=== PATIENT | male | born 1960 | race Two or more races ===

== ENCOUNTER → 2021-03-16 10:35 | Outpatient (BNVA) | payer OTHER, SELFPAY | PROVIDERS: PCP Internal Medicine; Visit Provider Anesthesiology ==

== ENCOUNTER 2021-04-04 06:20 | Outpatient (REF) | payer OTHER, SELFPAY | END 2021-04-04 06:21 | disposition home or self-care (01) | LOC: HO.RADIR 06:20 | PROVIDERS: Visit Provider Anesthesiology | DX: Z13.89 Encounter for screening for other disorder (principal) ==

== ENCOUNTER → 2021-05-10 10:22 | Outpatient (BNVA) | payer OTHER, SELFPAY | PROVIDERS: PCP Obstetrics & Gynecology; Visit Provider Anesthesiology ==

== ENCOUNTER 2021-06-06 05:52 | Outpatient (REF) | payer OTHER, SELFPAY ==
--- NOTE | ~2021-06-06 | FL_ITS ---
EXAMINATION: XR FLUOROSCOPY WITH IMAGES CLINICAL INFORMATION: G89.4 - Chronic pain syndrome COMPARISON: None. TECHNIQUE: Fluoroscopy performed by Dr. Twin Ward. Fluoroscopy time: 2.6 minutes DAP: 29.6 Gycm2 Images: 3 FINDINGS: Stimulator leads are seen ascending the posterior spinal canal. On frontal view, lead tips are in region of mid thoracic spine. There are mild multilevel degenerative changes with mild disc narrowing and vertebral spurring. Fusion hardware noted lower spine. FL/FL guidance in treatment room IMPRESSION: Fluoroscopy for pain management procedure.
== END 2021-06-06 05:53 | disposition home or self-care (01) ==
LOC: HO.RADIR 05:52
PROVIDERS: Visit Provider Anesthesiology
DX: G89.4 Chronic pain syndrome (principal); M96.1 Postlaminectomy syndrome, not elsewhere classified; Z97.8 Presence of other specified devices

== ENCOUNTER → 2021-06-14 07:59 | Outpatient (BNVA) | payer OTHER, SELFPAY | PROVIDERS: PCP Obstetrics & Gynecology; Visit Provider Anesthesiology ==

== ENCOUNTER 2021-08-11 07:09 | Day surgery (SDC) | payer OTHER, SELFPAY ==
--- NOTE | 2021-08-10 11:49 | P.CONAN_ITS ---
Documented by User: Jazmine Sierra NP 08/10/21 11:50 HPI - Anesthesia Eval Consult details Narrative: 61yo M for Lumbar Spinal Stimulation Implant with Removal of Intrathecal Drug Delivery System PMFSH Active Problems Active Problems: All Active Problems (Updated 08/08/21 @ 13:51 by Viviana Lancaster, RN) Presence of intrathecal pump (Acute) Chronic pain syndrome (Acute) Postlaminectomy syndrome (Acute) Past Medical History Medical History (Updated 08/08/21 @ 13:51 by Viviana Lancaster, RN) Allergic rhinitis Anemia Anxiety Bicuspid aortic valve Chronic pain syndrome Depressive disorder Hypercholesteremia Hypertensive disorder Impotence of organic origin Insomnia Irritable bowel Low back pain Lumbar radiculopathy Malignant essential hypertension On beta fareed at home NOEMY (obstructive sleep apnea) Otitis externa due to herpes zoster Postlaminectomy syndrome Premature atrial contraction Presence of intrathecal pump PVCs (premature ventricular contractions) Surgical History Surgical History (Updated 08/08/21 @ 13:51 by Viviana Lancaster RN) History of back surgery History of cystoscopy History of transurethral resection of prostate Social History Social History Patient Tobacco Use Status: Never used Tobacco Use of substances other than those prescribed or required for medical reasons: No Advance Directives: No Advance Directives Information Provided: Yes Recently lost weight without trying: No Meds Allergies Allergy/AdvReac Type Severity Reaction Status Date / Time opiods AdvReac itching, Uncoded 08/08/21 13:52 nausea Home Medications Medication Instructions Recorded Confirmed Last Taken Type dicyclomine 10 mg capsule 10 mg PO TID 03/16/21 08/08/21 Unknown History lisinopril 40 mg tablet 40 mg PO DAILY 03/16/21 08/08/21 Unknown History metoprolol succinate 200 mg 200 mg PO DAILY 03/16/21 08/08/21 Unknown History tablet,extended release 24 hr spironolactone 25 mg tablet 25 mg PO DAILY 03/16/21 08/08/21 Unknown History amlodipine 10 mg tablet 1 tab PO DAILY 08/08/21 08/08/21 Unknown History atorvastatin 80 mg tablet 80 tab PO DAILY 08/08/21 08/08/21 Unknown History cevimeline 30 mg capsule 1 cap PO TID 08/08/21 08/08/21 Unknown History fluticasone propionate 50 2 spray INTRANASAL QAM 08/08/21 08/08/21 Unknown History mcg/actuation nasal spray,suspension gabapentin 300 mg capsule 300 mg PO TID 08/08/21 08/08/21 Unknown History lorazepam 0.5 mg tablet 0.5 mg PO DAILY PRN 08/08/21 08/08/21 Unknown History tamsulosin 0.4 mg capsule 1 cap PO DAILY 08/08/21 08/08/21 Unknown History Exam Exam Date and Time: August 10, 2021 114 Assessment and Plan Assessment Anesthesia Assessment: Chart Reviewed Documented by User: Sophia Caputo MD 08/11/21 08:28 ON LICENSE OF [facility] Past Medical History Medical History (Updated 08/08/21 @ 13:51 by Viviana Lancaster RN) Allergic rhinitis Anemia Anxiety Bicuspid aortic valve Chronic pain syndrome Depressive disorder Hypercholesteremia Hypertensive disorder Impotence of organic origin Insomnia Irritable bowel Low back pain Lumbar radiculopathy Malignant essential hypertension On beta fareed at home NOEMY (obstructive sleep apnea) Otitis externa due to herpes zoster Postlaminectomy syndrome Premature atrial contraction Presence of intrathecal pump PVCs (premature ventricular contractions) Family History Family history of problems with anesthesia: No Surgical History Surgical History (Updated 08/08/21 @ 13:51 by Viviana Lancaster RN) History of back surgery History of cystoscopy History of transurethral resection of prostate History of Problems with Anesthesia: No Social History Social History Patient Tobacco Use Status: Never used Tobacco Use of substances other than those prescribed or required for medical reasons: No Advance Directives: No Advance Directives Information Provided: Yes Recently lost weight without trying: No Meds Allergies Allergy/AdvReac Type Severity Reaction Status Date / Time opiods AdvReac itching, Uncoded 08/08/21 13:52 nausea Home Medications Medication Instructions Recorded Confirmed Last Taken Type dicyclomine 10 mg capsule 10 mg PO TID 03/16/21 08/08/21 Unknown History lisinopril 40 mg tablet 40 mg PO DAILY 03/16/21 08/08/21 Unknown History metoprolol succinate 200 mg 200 mg PO DAILY 03/16/21 08/08/21 Unknown History tablet,extended release 24 hr spironolactone 25 mg tablet 25 mg PO DAILY 03/16/21 08/08/21 Unknown History amlodipine 10 mg tablet 1 tab PO DAILY 08/08/21 08/08/21 Unknown History atorvastatin 80 mg tablet 80 tab PO DAILY 08/08/21 08/08/21 Unknown History cevimeline 30 mg capsule 1 cap PO TID 08/08/21 08/08/21 Unknown History fluticasone propionate 50 2 spray INTRANASAL QAM 08/08/21 08/08/21 Unknown History mcg/actuation nasal spray,suspension gabapentin 300 mg capsule 300 mg PO TID 08/08/21 08/08/21 Unknown History lorazepam 0.5 mg tablet 0.5 mg PO DAILY PRN 08/08/21 08/08/21 Unknown History tamsulosin 0.4 mg capsule 1 cap PO DAILY 08/08/21 08/08/21 Unknown History Exam Airway Mallampati Class: II TM Dist: >3cm Neck ROM: Full Assessment and Plan Assessment Anesthesia Assessment: Anesthesia Plan Discussed Final Anesthetic Review Family History of Problems with Anesthesia: No History of Problems with Anesthesia: No NPO: Yes ASA Class: II Final Preanesthetic Review: No Changes in Pt Med Stat, Meds/Allgs Chart Reviewed, Consent Obtained/Reviewed and Anes Risks/Benef Reviewed Patient Risk: Intermediate Procedure Risk: Low Anesthetic Plan Anesthetic Plan: GA Disposition: Standard PACU
[2021-08-11] VITALS (9 sets, daily range): BP systolic 104–138; BP diastolic 65–89; PULSE 60–114; RESP 14–18; TEMP 36.3–36.6; O2SAT 96–99; BMI 27.0
--- NOTE | ~2021-08-11 | FL_ITS ---
EXAMINATION: XR FLUOROSCOPY WITH IMAGES CLINICAL INFORMATION: Lumbar spine cord simulation trial. COMPARISON: None. TECHNIQUE: Fluoroscopy performed by Dr. Twin Ward Fluoroscopy time: 6.7 minutes DAP: 43.3 mGycm2 Images: 3 FINDINGS: Lateral thoracic spine revealing insertion of 2 posterior spinal electrodes in the [id number] thoracic spine. Visualized bones and the disc spaces are maintained normal. FL/FL guidance in OR IMPRESSION: Fluoroscopy was provided to referring physician for pain management.
[2021-08-11] MEDS: Lactated Ringers 1,000 ML 100 ML IVCONT (07:42)
--- NOTE | 2021-08-11 07:44 | MHC.SHP ---
Pre-Procedural Eval Section A Date of Service: 08/11/21 The patient is an INPATIENT: No Changes since office visit: Yes Patient answered all questions The History & Physical has been completed within 30 days and I have reviewed it.: No Section B Chief Complaint: Postlaminectomy Syndrome Details of Present Illness: as above Relevant Family History (Specify if Yes): No Relevant Social History: None Present Medications: see Short Stay Collaborative assessment Medical History: No relevant PMH History of Previous Operations: Relevant previous surgery/procedure and date(s) Allergies: Allergies Allergy/AdvReac Type Severity Reaction Status Date / Time opiods AdvReac itching, Uncoded 08/08/21 13:52 nausea Review of Systems Sugical H&P ROS: Negative: Constitution, Cardiovascular, Respiratory, Neurological, Psychiatric, Hem-Onc, Allergic/Immunologic, Gastrointestinal, Genitourinary, Musculoskeletal, Integumentary, Endocrine and Eyes/Ears/Nose/Throat Exam Surgical H&P Exam: Normal: HEENT, Normal: Heart, Normal: Lungs, Normal: Extremities, Normal: Abdomen, Normal: Skin and Normal: Neurological Plan Diagnosis/Plan: Unchanged I have reviewed the history and physical and performed a pertinent physical examination on my patient. No changes have occurred unless specified.
--- NOTE | 2021-08-11 12:04 | W.PM.OPN ---
Operative Note Operative Note Date of Service: 08/11/21 Narrative: Abdiaziz is a very pleasant 61 y.o. ?who came today the operating room for the implant of Nevro spinal cord stimulator for the treatment of mostly axial lower back pain and removal of intrathecal pain pump 20 years old which was implanted in [place]. This was outdated continuous pressure intrathecal pump which was delivering bupivacaine only to the patient. After obtaining informed consent patient was brought to the operating room, he was positioned supine on the stretcher, [place] [employer] monitors were applied and patient was induced with general anesthesia with endotracheal intubation.? After that patient was transferred on the operating table prone, all pressure points were protected. ? Time-out was performed delineating correct site, side, the nature of the procedure, patient's allergy, preoperative antibiotic if needed.? All operating room staff was participating in OR time-out procedure. Patient's entire back was prepped with DuraPrep twice and draped with full body drape including Ioban film.? Sterilely draped C-arm was brought over operating field and square picture of T12, L1, L2?vertebrae? were demonstrated on the screen.? Picture of anchoring device was noted on the screen. The location of the lumbar spine fusion hardware was noted on the screen. THE PROJECTION OF? L1-L2 and L3?SPINOUS PROCESSES TO THE SKIN WERE INFILTRATED WITH LIDOCAINE 2% MIXED WITH BUPIVACAINE 0.5%.? 16 CM LONG VERTICAL INCISION using a 10 blade scalpel WAS PERFORMED IN STRICT MIDLINE VERTICAL FASHION.? THOROUGH HEMOSTASIS WAS PERFORMED using electrocautery. ?Thorough tissue dissections was performed until prevertebral fascia was freed from overlying tissues.? The anchor for intrathecal drug delivery system catheter was dissected from surrounding tissues. The catheter was attempted to fold on itself and tied up with suture. Unfortunately this of dated model of the catheter was not capable of this maneuver. I was not able to fold over and tied up with Tycron suture. The decision was made to remove the catheter. The catheter was dissected to the level of prevertebral fascia where it was entering the spinal canal. Of the pursestring suture using Tycron 1.0 was formed in the tissues surrounding the catheter entrance point into the prevertebral fascia. After that the catheter was severed from distal part and was slowly withdrawn to the level of the fascia until the tip of the catheter was delivered outside. The presumable channel of the direction of the catheter was inserted with the Bovie tip and coagulation application was applied. After that to the pursestring suture was tied up and yet another pursestring suture was applied in the area surrounding the 1st pursestring suture and tied up 1 more time. Thorough irrigation was performed of the wound. The tip of the catheter was examined it was appeared intact. Nevertheless it was cultured and sent for pathology. After that attention was concentrated on the RIGHT T12-L1 epidural interspace.? The location of the projection of the right pedicle center of the?L2?vertebra was found on the prevertebral fascia using C-arm. 10 cm 14 gauge straight introducer epidural needle was inserted through the fascia and advanced toward?T12-L1 epidural interspace.? The advancement of the needle was performed on anterior posterior and lateral views.? Guitar wire and loss of resistance technique were used to locate epidural space.?When loss of resistance was felt in the needle, guitar wire was obtained inserted into the needle and spread in epidural fashion. After that epidural lead was inserted through the needle and it was advanced to the position in the POSTERIOR EPIDURAL SPACE ? Slightly left to MIDLINE at the posterior T8 vertebral body body epidural space. After that location of the projection of the LEFT pedicle center of the L2 vertebra was found -using C-arm.? This location was injected with mixture of lidocaine 2% and Marcaine 0.5% 5 cc.? Again here 10 cm 14 gauge straight epidural needle was inserted through the prevertebral fascia and advanced to T12-L1 intervertebral interspace now on the left side.? Loss of resistance to air technique was used to locate epidural space and guitar wire was used to confirm position of the epidural space. When guitar wire was spread in the epidural fashion, epidural lead was inserted through the needle and advanced to the? T9 POSTERIOR EPIDURAL SPACE?slightly right to the existing LEAD.? THE LOCATION OF BOTH LEADS WAS VERIFIED ON ANTERIOR POSTERIOR AND LATERAL VIEWS. After satisfactory position of the leads were established the needles were withdrawn, the stylette wires were removed from the epidural leads.? The anchoring devices were dislodged on the leads and advanced to the level of the prevertebral fascia.? The anchoring devices were advanced along the epidural leads and dislodged on epidural leads at the level of prevertebral fascia.? They were sutured to prevertebral fascia with 2 separate Tycron 1-0 sutures per each anchoring device.? The fixating screws were fixed until 3 clicks were heard on each anchoring device. After that the wound was irrigated with copious amount of Vancomycin containing normal saline and packed with Vancomycin soaked 4 x 4. ?After that attention was concentrated on the right upper buttock??of the patient?where he wanted the? battery to be implanted.?Using 10 scalpel 6 cm long horizontal incision was performed 3 cm below the projection to the skin of the left iliac creest. ? The wound was deepened and widened and thorough hemostasis was performed. The pocket was created to accommodate the battery. Irrigation with vancomycin containing saline was performed.After that the? tunneling device was used to connect midline incision and the left upper buttock incision. Thorough hemostasis was performed. ?? After that tunneling device was used to connect both wounds and dislodge epidural leads from midline wound to the lateral wound in the? upper ? Left buttock..? The epidural lead's contacting ends were connected to the battery. The impedance was satisfactory. After that both wounds were thoroughly irrigated with normal saline containing vancomycin.?? Tycron 1 0 Sutures were applied to the most superior lateral and most superior medial corners of the? wound.? Those sutures were tied after the battery was inserted into the pocket with the epidural leads collected behind the body of the battery.. After that 0 Polisorb sutures were used to close both wounds.?0-2 Polisorb surures were used to approximate the level of the skin on the both wounds.? Jake were applied to skin level.? Bacitracin ointment was smeared on the staple line.? Sterile dressing was applied.? After that the patient was turned on the operating table supine and location of the intrathecal catheter was determined on the right side of the abdomen. Patient's anterior lateral and central abdomen was prepped with ChloraPrep and draped with full body drape. The pump was located again under the skin and the incision was planned along side the center of the pump. 10 cm incision using 10 blade scalpel was made in the middle of the projection of the pump. Thorough hemostasis was obtained. The capsule of the pump was opened up. Heavy calcifications were discovered in the body of the pump. Those calcifications might be evident of indolent chronic infection. Cultures were obtained. The anchoring sutures were severed and the outdated arrow intrathecal pump was removed to the level of the skin. After that dissection was performed along side the intrathecal catheter and connection device. The application of the Bovie on the outdated intrathecal catheter resulted in severance of the spring inside of the catheter. The catheter ruptured and after that was removed from the wound piece by piece. Eventually I was able to remove most of the portions of the intrathecal catheter. After that attention was concentrated on the calcified tissues in crusting the self of the pump pocket. Thorough dissection and removal of the calcified tissues was performed. Thorough irrigation was repeated numerous times. Irrigation was containing vancomycin. Most of the calcified tissue was removed however some calcified tissue stayed behind. Thorough hemostasis was performed using Bovie and interrupted sutures. After that 10 DONALDO drain was used to drain the wound. It was taken from inside out in the most inferior and medial corner of the wound. The DONALDO drain bulb connected to the draining line. After that the sutures 0 Polysorb is were used to close the wound. Polysorb 0-2-0 was used to approximate the level of the skin and after that apples applied to the level of the skin. Nylon suture was used to fix DONALDO drain wine to the skin. After that sterile dressing was applied. When all dressings were positioned securely in the patient he was awakened, extubated, transferred to the stretcher and transferred to PACU where he continued his recovery.
--- NOTE | 2021-08-11 14:21 | P.BOP_ITS ---
Brief Operative Note Date of Service: 08/11/21 Pre-op diagnosis: Postlaminectomy syndrome Post-op diagnosis: other Procedure: Postlaminectomy syndrome, presence of outdated intrathecal pump arrow. Possible infection of the pump pocket. Implants: Nevro SCS HF 10. Surgeon: Twin Ward MD Anesthesia: GETA Was an [employer] Ferry[employer] used for this Procedure?: No Estimated blood loss (mL): 30 Pathology: other (Cultures and pathology were sent from both intrathecal pain pump insertion side as well as intrathecal catheter insertion side.) Condition: stable Disposition: PACU
== END 2021-08-11 17:01 | disposition home or self-care (01) ==
PROVIDERS: PCP Internal Medicine; Visit Provider Anesthesiology
PROC: (CPT 63685; principal; 2021-08-11 09:00)
DX: M96.1 Postlaminectomy syndrome, not elsewhere classified (principal); M54.16 Radiculopathy, lumbar region; G89.4 Chronic pain syndrome; M54.50 Low back pain, unspecified; R33.9 Retention of urine, unspecified; Z97.8 Presence of other specified devices; F32.9 Major depressive disorder, single episode, unspecified; G47.33 Obstructive sleep apnea (adult) (pediatric); I10 Essential (primary) hypertension; D64.9 Anemia, unspecified; E78.00 Pure hypercholesterolemia, unspecified; Z79.899 Other long term (current) drug therapy; Z79.51 Long term (current) use of inhaled steroids; Z98.1 Arthrodesis status; Z88.8 Allergy status to other drugs, medicaments and biological substances
CPT/HCPCS: 63685; 63650 ×2; 62365; 62355; 87071; 87205; 88300; 88304; C1713; C1778; C1787; C1816; J0330; J0690; J1100; J2250; J2370; J2405; J3010; J3370

== ENCOUNTER → 2021-08-17 09:27 | Outpatient (BNVA) | payer OTHER, SELFPAY | PROVIDERS: PCP Obstetrics & Gynecology; Visit Provider Anesthesiology | DX: M96.1 Postlaminectomy syndrome, not elsewhere classified (principal); G89.4 Chronic pain syndrome; Z97.8 Presence of other specified devices | CPT/HCPCS: 99212 ==

== ENCOUNTER → 2021-08-24 09:40 | Outpatient (BNVA) | payer OTHER, SELFPAY | PROVIDERS: PCP Obstetrics & Gynecology; Visit Provider Anesthesiology | DX: Z13.89 Encounter for screening for other disorder (principal) ==

== ENCOUNTER 2022-06-11 15:23 | Outpatient (REF) | payer OTHER, SELFPAY ==
--- NOTE | ~2022-06-11 | XR_ITS ---
EXAMINATION: XR THORACIC SPINE CLINICAL INFORMATION: Postlaminectomy syndrome COMPARISON: None TECHNIQUE: 3 views of the thoracic spine were obtained. FINDINGS: Posterior spinal stimulators with leads projecting over the midthoracic vertebral bodies. Partially visualized lumbar fusion hardware. Mild multilevel disc space narrowing and osteophytosis. XR/XR thoracic spine 3V IMPRESSION: Posterior spinal stimulators with leads projecting over the midthoracic vertebral bodies.
== END 2022-06-11 15:24 | disposition home or self-care (01) ==
LOC: HO.XRAY 15:23
PROVIDERS: PCP Obstetrics & Gynecology; Visit Provider Anesthesiology
DX: M96.1 Postlaminectomy syndrome, not elsewhere classified (principal); G89.4 Chronic pain syndrome; Z96.89 Presence of other specified functional implants
CPT/HCPCS: 72072

== ENCOUNTER 2023-04-03 08:02 | Outpatient (AMB) | payer OTHER, SELFPAY ==
--- NOTE | 2023-04-03 09:11 | HO.SPINEOV ---
Intake Intake Visit Reasons: back pain Intake Note: Mr. Rivera is here today c/o mid back pain. MRI done @ [facility]/brought disc. 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 The surgeries decrease his back pain and address his radiculopathy. He had a spinal cord stimulator placed [address] Ward for his thoracolumbar pain. He comes to see if there any minimally invasive techniques to address his thoracolumbar pain. The pain progresses during the day when he is in an erect position. When home he performs traction and a supine position improves the symptoms. The following conservative treatment options were tried without success antiinflammatories, tylenol, physician guided home exercise plan PMH: Hypertension, hypercholesterolemia Medications: Amlodipine, atorvastatin, gabapentin, lisinopril, metoprolol, spironolactone Allergies: Opioids Social history: Nonsmoker Physical Exam: On inspection there is a relatively flat back. There is a mild thoraco scoliosis. There is pain on palpation in the thoracolumbar area. No neurological deficits from motor sensation reflexes Radiological Studies: MRI done at [facility] shows degenerative disc disease in the lower thoracic area. X-rays of the lumbar spine shows a reduced lumbar lordosis, predominantly caused by the L3-4 fusion and the relatively small cage used at L5-S1. Impression/Plan: This patient has thoracolumbar pain is caused by sagittal imbalance due to a reduce lumbar lordosis. An option would be to undo the previous fusions to improve the lumbar lordosis and to reduce the stress from the thoracolumbar junction. I did not recommend this as I can not predict a solid outcome. I advised him to return to Dr. Ward for facet blocks in the thoracolumbar region and possible denervations. Thank you for allowing me to participate in your patients care. total time spent was 50 minutes in counseling ,coordination of plan, personal review of imaging, surgical decision making and subsequent plan Luis Carlos Santiago MD, PhD Spine Fellowship Trained Neurosurgeon Director, [facility] Coding Level of Care Code New Pt Level 4 (72057) Diagnoses Postlaminectomy syndrome M96.1
== END 2023-04-03 10:20 | disposition home or self-care (01) ==
PROVIDERS: PCP Obstetrics & Gynecology; Visit Provider Neurological Surgery
DX: M96.1 Postlaminectomy syndrome, not elsewhere classified (principal)
CPT/HCPCS: 99204

== ENCOUNTER → 2023-04-03 08:02 | Outpatient (BNVA) | payer OTHER, SELFPAY | PROVIDERS: PCP Obstetrics & Gynecology; Visit Provider Neurological Surgery | DX: M96.1 Postlaminectomy syndrome, not elsewhere classified (principal) | CPT/HCPCS: 99202 ==

== ENCOUNTER 2023-08-05 13:26 | Outpatient (AMB) | payer OTHER, SELFPAY ==
--- NOTE | 2023-08-05 13:37 | A.OFFVIS_ITS ---
Intake Vital Signs 08/05/23 13:41 Height 5 ft 11 in Weight 201 lb BMI 28.0 BP 130/90 H Blood Pressure Location Lt brachial Position Sitting Respiration 16 Pulse 98 Pulse Source Pulse Oximeter Pulse Oximetry (%) 98 Oxygen Delivery Method Room Air Intake Visit Reasons: Follow Up from Spine/LVM Intake Note: Patient comes in for follow up appointment. Reports pain 10. Allergies opiods Adverse Reaction (Uncoded 06/11/22 15:40) itching, nausea HPI HPI Comments History of Present Illness Details Abdiaziz is back in my office with complains on more severe pain in the lower back. He reports his pain in the projection of the previous surgical scar is non-existent. However he admits more severe pain in the projection of the upper lumbar spine approximately T12-L1 L2-L3 vertebra. On physical exam loading test is positive. He requests me to perform diagnostic medial branch block. With hardware in his back it might be difficult to perform. I offered him revision of spinal cord stimulator with position of the spinal cord lead higher in the lumbar spine to cover both upper lumbar and lower lumbar pain. I will schedule him for the procedure. We will also discuss possibility of treating his back with intrathecal pain pump such as Prialt medication. He also requested me to start him on some non opioid medications help his pain. I offered him methocarbamol and Celebrex. 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 Prior: Initially she came in my office with mechanical bupivacaine pain pump. He had multiple side effects on opioids and he was tried on mechanical bupivacaine pain pump. He requested pain pump removal because it stopped Helping him and actually made his bilateral lower extremity week and numb. I removed pain pump and after that I performed a trial of Nevro spinal cord stimulator. Initially I was very reluctant to remove pain pump I was ready to change the existing pump for the Medtronic SynchroMed 2 electronic pain pump and give him fresh intrathecal line. However patient adamantly refused. After that the trial of Nevro demonstrated good pain relief reported about 70% pain improvement. After that implantation of the Nevro SCS was performed and originally patient reported very significant pain improvement. [facility] Medical History (Updated 08/05/23 @ 14:13 by Twin Ward MD) On beta fareed at home PVCs (premature ventricular contractions) Presence of intrathecal pump Chronic pain syndrome Postlaminectomy syndrome Premature atrial contraction Otitis externa due to herpes zoster NOEMY (obstructive sleep apnea) Malignant essential hypertension Lumbar radiculopathy Low back pain Irritable bowel Insomnia Impotence of organic origin Hypertensive disorder Hypercholesteremia Depressive disorder Bicuspid aortic valve Anxiety Anemia Allergic rhinitis Surgical History (Updated 08/08/21 @ 13:51 by Viviana Lancaster RN) History of back surgery History of cystoscopy History of transurethral resection of prostate Social History Patient Tobacco Use Status: Never used Tobacco Review of Systems Const All systems reviewed & are unremarkable except as noted in HPI and below ENT Reports Normal hearing present Neuro Reports Normal hearing present, Denies confusion and Denies Sensory deficit (Neuro) Psych Denies confusion Physical Exam Vital Signs: Last Vital Signs Pulse 98 08/05/23 13:41 Resp 16 08/05/23 13:41 BP 130/90 H 08/05/23 13:41 Pulse Ox 98 08/05/23 13:41 Oxygen Delivery Method Room Air 08/05/23 13:41 BMI result Body Mass Index 28.0 Const General: No confusion Orientation/consciousness: No confusion Eyes Pupils: Equal, round and reactive pupils present EOM: EOMs intact bilaterally Chest Chest palpation & inspection: normal inspection of the chest Resp Effort & Inspection: normal respiratory effort, able to speak in complete sentences, normal respiratory pattern, no audible wheezes and no cough Cardio Jugular venous distension: no JVD Back/Spine/Pelvis Other: tenderness on palpation in paraspinal spinal region in lumbar spine. Loading test is positive. Range of motion in lumbar spine is limited. Patient has total scars 1 for lower portion of the abdomen which is anterior lumbar fusion L5-S1 and 1 in the midline lower back which delineates L3-L4 fusion in the past. The scar is a very well-healed. There is also side of the spinal cord stimulator scar very well-healed as well as side of the Nevro battery implantation also very well-healed. Neuro General: No confusion Cranial nerves: Yes Equal, round and reactive pupils present and Yes Normal hearing present Sensory Exam: No Sensory deficit (Neuro) Assessment & Plan Assessment & Plan (1) Postlaminectomy syndrome: Code(s): M96.1 - Postlaminectomy syndrome, not elsewhere classified (2) Spinal cord stimulator status: Code(s): Z96.89 - Presence of other specified functional implants (3) Chronic pain syndrome: Code(s): G89.4 - Chronic pain syndrome (4) Spinal cord stimulator dysfunction: Code(s): T85.192A - Other mechanical complication of implanted electronic neurostimulator of spinal cord electrode (lead), initial encounter Plan 1. The revision of the SCS will be scheduled. Meanwhile he will contact Nevro representatives and I will try to bring the stimulation as high as possible on the existing electrodes. Maybe it will cover his pain better. 2. I started him on methocarbamol. I will also request the clearance from electric melt operator on whether or not we can start him on Celebrex. 3. Potentially diagnostic medial branch block T12-L1 L3 can be done diagnostically to see if this medial branch block and help the pain of this patient. Sprint PNS could be considered in the future if diagnostic block will be working versus therapeutic injections. Medications: New methocarbamol 750 mg PO Q8H 30 days PRN 90 tabs 6RF muscle spasticity Patient Instructions: I here by testify that I spent 37 minutes in conversation with this patient as well as planning his care and organizing this note. Coding Level of Care Code Est Pt Level 4 (10247) Diagnoses Postlaminectomy syndrome M96.1 Spinal cord stimulator status Z96.89 Chronic pain syndrome G89.4 Spinal cord stimulator dysfunction T85.192A
[2023-08-05 13:41] VITALS: BP 130/90; PULSE 98; RESP 16; O2SAT 98; BMI 28.0
== END 2023-08-05 14:06 | disposition home or self-care (01) ==
PROVIDERS: PCP Obstetrics & Gynecology; Visit Provider Anesthesiology
DX: M96.1 Postlaminectomy syndrome, not elsewhere classified (principal); Z96.89 Presence of other specified functional implants; G89.4 Chronic pain syndrome; T85.192A Other mechanical complication of implanted electronic neurostimulator of spinal cord electrode (lead), initial encounter
CPT/HCPCS: 99214

== ENCOUNTER → 2023-08-05 13:26 | Outpatient (BNVA) | payer OTHER, SELFPAY | PROVIDERS: PCP Obstetrics & Gynecology; Visit Provider Anesthesiology ==

== ENCOUNTER 2024-07-16 11:17 | Outpatient (AMB) | payer OTHER, SELFPAY ==
[2024-07-16 11:43] VITALS: BP 134/75; PULSE 79; O2SAT 97; BMI 28.6
--- NOTE | 2024-07-16 11:43 | MHC.OFFVIS ---
Vital Signs 07/16/24 11:43 Height 5 ft 11 in Weight 205 lb 6 oz BMI 28.6 BP 134/75 Blood Pressure Location Lt brachial Position Sitting Pulse 79 Pulse Source Pulse Oximeter Pulse Oximetry (%) 97 Oxygen Delivery Method Room Air Intake Visit Reasons: Back pain Allergies opiods Adverse Reaction (Uncoded 07/16/24 11:45) itching, nausea HPI Comments Details: Abdiaziz is back in my office with continuous complain on upper lumbar pain. He has spinal cord stimulator Nevro implanted. I recommended him to contact spinal cord stimulator sales representative [employer] to adjust the stimulation to help her more elevated still back pain. In the past we were planning to do medial branch blocks on the upper lumbar spine however patient was not very eager to go for this procedure. He requests me to prescribe some medications ATI decided to prescribe him indomethacin his pain. I also explained to him that indomethacin should be taken with food. To evaluate the progression of his postlaminectomy syndrome I will schedule him for MRI of the lumbar spine. Possibility exists that his pain is related to vertebra genic pain syndrome since he complains on pain increase with prolonged sitting. He also reports pain with activities. He reports pain with prolonged standing and walking. Flexing forward aggravates his pain more than flexing backwards. Prior: Initially she came in my office with mechanical bupivacaine pain pump. He had multiple side effects on opioids and he was tried on mechanical bupivacaine pain pump. He requested pain pump removal because it stopped Helping him and actually made his bilateral lower extremity week and numb. I removed pain pump and after that I performed a trial of Nevro spinal cord stimulator. Initially I was very reluctant to remove pain pump I was ready to change the existing pump for the Medtronic SynchroMed 2 electronic pain pump and give him fresh intrathecal line. However patient adamantly refused. After that the trial of Nevro demonstrated good pain relief reported about 70% pain improvement. After that implantation of the Nevro SCS was performed and originally patient reported very significant pain improvement. [facility] Medical History On beta fareed at home PVCs (premature ventricular contractions) Presence of intrathecal pump Chronic pain syndrome Postlaminectomy syndrome Premature atrial contraction Otitis externa due to herpes zoster NOEMY (obstructive sleep apnea) Malignant essential hypertension Lumbar radiculopathy Low back pain Irritable bowel Insomnia Impotence of organic origin Hypertensive disorder Hypercholesteremia Depressive disorder Bicuspid aortic valve Anxiety Anemia Allergic rhinitis Surgical History History of back surgery History of cystoscopy History of transurethral resection of prostate Social History Patient Tobacco Use Status: Never used Tobacco Review of Systems Const All systems reviewed & are unremarkable except as noted in HPI and below ENT Reports Normal hearing present Neuro Reports Normal hearing present, Denies confusion and Denies Sensory deficit (Neuro) Psych Denies confusion Physical Exam Vital Signs: Last Vital Signs Pulse 79 07/16/24 11:43 BP 134/75 07/16/24 11:43 Pulse Ox 97 07/16/24 11:43 Oxygen Delivery Method Room Air 07/16/24 11:43 BMI result Body Mass Index 28.6 Const General: No confusion Orientation/consciousness: No confusion Eyes Pupils: Equal, round and reactive pupils present EOM: EOMs intact bilaterally Chest Chest palpation & inspection: normal inspection of the chest Resp Effort & Inspection: normal respiratory effort, able to speak in complete sentences, normal respiratory pattern, no audible wheezes and no cough Cardio Jugular venous distension: no JVD Back/Spine/Pelvis Other: tenderness on palpation in paraspinal spinal region in lumbar spine. Loading test is positive. Range of motion in lumbar spine is limited. Patient has total scars 1 for lower portion of the abdomen which is anterior lumbar fusion L5-S1 and 1 in the midline lower back which delineates L3-L4 fusion in the past. The scar is a very well-healed. There is also side of the spinal cord stimulator scar very well-healed as well as side of the Nevro battery implantation also very well-healed. Neuro General: No confusion Cranial nerves: Yes Equal, round and reactive pupils present and Yes Normal hearing present Sensory Exam: No Sensory deficit (Neuro) Assessment & Plan Assessment & Plan (1) Postlaminectomy syndrome: Code(s): M96.1 - Postlaminectomy syndrome, not elsewhere classified Category: Medical (2) Spinal cord stimulator status: Code(s): Z96.89 - Presence of other specified functional implants Category: Medical (3) Chronic pain syndrome: Code(s): G89.4 - Chronic pain syndrome Category: Medical (4) Spinal cord stimulator dysfunction: Code(s): T85.192A - Other mechanical complication of implanted electronic neurostimulator of spinal cord electrode (lead), initial encounter Category: Medical Plan 1. He will contact Nevro representatives and I will try to bring the stimulation as high as possible on the existing electrodes. Maybe it will cover his pain better. 2. I started him on indomethacin. Side effects were explained. Patient is very negative about opioids. Tramadol was offered but patient does not want it. 3. Potentially diagnostic medial branch block T12-L1 L3 can be done diagnostically to see if this medial branch block and help the pain of this patient. Sprint PNS could be considered in the future if diagnostic block will be working versus therapeutic injections. Orders: Orders MR lumbar spine wo/w con Today M96.1 - Postlaminectomy syndrome, not elsewhere classified Medications: New indomethacin administer with food or milk 50 mg PO TID PRN 90 caps 1RF pain (scale score 4-6) 30 days Discontinued methocarbamol Discontinued Reason: Doctor's Order 750 mg PO Q8H 30 days PRN 90 tabs 6RF muscle spasticity Patient Instructions: I here by testify that I spent 32 minutes in conversation with this patient as well as planning his care and organizing this note. Coding Level of Care Code Est Pt Level 4 (39268) Diagnoses Postlaminectomy syndrome M96.1 Spinal cord stimulator status Z96.89 Chronic pain syndrome G89.4 Spinal cord stimulator dysfunction T85.192A
--- OUTSIDE RECORDS SUMMARY | 2024-07-16 12:37 | XMS_ITS | Encounter Summary ---
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 This section includes the names of all active insurance providers for the patient. Insurance Provider Type of Coverage Plan Name Start of Policy Coverage End of Policy Coverage Group Number Member ID Insurance Provider's Telephone Number Policy Huerta's Name Patient's Relationship to Policy Huerta [facility] ORGANIZAT ION FED-H [place] Jul 09, 2005 [id number] Arlene PAINTER EORGE PATIENT [facility] POINT OF SERVICE [place] EMPLO GALE Mar 05, 2010 [id number] Arlene PAINTER EORGE PATIENT AETNA RX BIN [id number] PRESCRIPT ION [place] EM[place]O ALLISON Jul 25, 2008 [id number] Arlene PAINTER EORGE PATIENT [facility] ORGANIZ [place] EMPLO ALLISON May 27, 2006 [id number] Arlene PAINTER EORGE PATIENT [place] BS [place] PREFERRED PROVIDER ORGANIZAT ION (PPO) [facility] PRISCA OGDEN @ [place] Sep 04, 2005 [id number] Arlene PAINTER EORGE PATIENT [employer] PRESCRIPT ION Aug 25, 2012 [id number] SECOND [id number] Arlene PAINTER EORGE PATIENT [employer] [id number]/BAY PRESCRIPT ION [facility] Jul 11, 2016 [id number] SECOND [id number] Arlene PAINTER EORGE PATIENT [employer] ([id number]) PRESCRIPT ION [facility] Nov 24, 2017 [id number] Arlene PAINTER EORGE PATIENT [employer] ([id number]) PRESCRIPT ION [facility] EDDBA Nov 24, 2004 [id number] [address]lene [address] EORGE PATIENT [facility] Nov 24, 2017 [id number] Arlene PAINTERRGE PATIENT [facility] OF SERVICE [facility] Jul 11, 2016 [id number] [facility] ORGANIZ [facility] May 27, 2015 [id number] [facility] ORGANIZ [facility] Jul 25, 2014 [id number] [facility] ORGANIZ [facility] Aug 25, 2012 [id number] Arlene PAINTERRALIN PATIENT Selected Encounter This section includes the information on [place] at [place] for the Encounter. Date/Time Encounter Type Encounter Description Reason Provider Source May 14, 2024 02:00 PM OFFICE O/P EST MOD 30 MIN PRIMARY CARE/MEDICINE ICD-10-CM G47.30 Sleep apnea, unspecified FURCOLO,ISAI IHE Encounter Template Text not used by [facility] Assessments - Encounter Diagnoses This section includes the primary and secondary diagnoses documented for the Encounter. Date/Time Primary/Secondary Diagnosis Diagnosis Name Provider Source May 14, 2024 02:35 PM PRIMARY Sleep apnea, unspecified FURCOLO,ISAI [facility] May 14, 2024 02:35 PM SECONDARY Allergic rhinitis, unspecified FURCOLO,ISAI [facility] May 14, 2024 02:35 PM SECONDARY Encounter for immunization FITO CARDONA [facility] May 14, 2024 02:35 PM SECONDARY Essential (primary) hypertension FURCOLO,ISAI [facility] May 14, 2024 02:35 PM SECONDARY Low back pain, unspecified FURCOLO,ISAI [facility] May 14, 2024 02:35 PM SECONDARY Pure hypercholesterolem ia, unspecified FURCOLO,ISAI [facility] Lab Results: +/- 30 days of the encounter This section includes the Chemistry and Hematology Lab Results on record with [place] for the patient. Radiology Reports and Pathology Reports are provided separately, in subsequent sections. Lab Results This section contains the Chemistry/Hematology Results that were resulted 30 days before or 30 daysafter the date of the Encounter. Date/Time Source Result Type Result - Unit Interpretation Reference Range Comment May 14, 2024 02:33 PM [facility] LIPID PANEL FASTING Specimen Type: SERUM No comment entered. Ordering Provider: ISAI GORDON Report Released Date/Time: Oct 29, 2023 02:42 PM Reporting Lab: [facility]ITALUSE[address] [address] Performing Lab: [facility] [address] [facility] [address] CHOLESTEROL 211 mg/dL H TRIGLYCERIDE 203 mg/dL H 0-150 LDL calculated 122 mg/dL 0-129 CHOL/HDL 4.4 HDL CHOLESTEROL 48 mg/dL 40-60 May 14, 2024 02:33 PM [facility] LIVER FUNCTION Specimen Type: SERUM No comment entered. Ordering Provider: ISAI GORDON Report Released Date/Time: Oct 29, 2023 02:42 PM Reporting Lab: [facility] [address] [address] Performing Lab: [address] [address] PROTEIN,TOTAL 7.7 g/dL 6.0-8.3 ALBUMIN 4.3 g/dL 3.5-5.0 ALKALINE PHOSPHATASE 115 U/L 40-150 AST 25 U/L 5-34 ALT 29 U/L BILIRUBIN, TOTAL 0.6 mg/dL 0.2-1.2 May 14, 2024 02:33 PM [facility] BASIC METABOLIC PANEL (fasting) Specimen Type: SERUM No comment entered. Ordering Provider: ISAI GORDON Report Released Date/Time: Oct 29, 2023 02:42 PM Reporting Lab: [address] [address] Performing Lab: [address] [address] UREA NITROGEN 25 mg/dL 7-25 GLUCOSE 106 mg/dL H 65-100 SODIUM 138 mmol/L 135-145 POTASSIUM 4.6 mmol/L 3.5-5.0 CHLORIDE 105 mmol/L 100-110 CO2 24 meq/L 20-30 CREATININE, Serum 1.19 mg/dL 0.50-1.40 eGFR(CKD-EPI 2020) 69 mL/min >60 Vital Signs: All taken on the encounter date This section contains inpatient and outpatient Vital Signs collected on the date of the Encounter. Date/Time Temperature Pulse Blood Pressure Respiratory Rate SP02 Pain Height Weight Body Mass Index Source May 14, 2024 01:52 PM 98.3 76 128/82 16 96 4 205 28 [facility] Immunizations: All administered on the encounter date This section contains immunizations associated to the Encounter. Immunization Series Date Issued Reaction Comments TDAP May 14, 2024 Social History: Smoking Status (Most current) and Tobacco Use (All prior to encounter date) This section includes the most current, and the historical, smoking and tobacco- related health factors from the [place] facility where the Encounter took place. Current Smoking Status This section includes the most current smoking, or tobacco-related health factor, from the [place] facility where the Encounter took place. Date/Time Current Smoking Status Comment Carole barboza Oct 29, 2023 02:00 PM VA-TOBACCO NEVER USED [facility] Tobacco Use History This section includes a history of the smoking, or tobacco-related health factors, that were collected on or before the date of the Encounter. The data comes from the [place] facility where the Encounter took place. Date/Time Smoking Status/Tobac co Use Comment Facility October 16, 2022 02:00 PM VA-TOBACCO NEVER USED [facility] Nov 13, 2019 01:28 PM VA-TOBACCO NEVER USED [facility] May 23, 2018 03:31 PM VA-TOBACCO NEVER USED [facility] Nov 22, 2017 02:56 PM LIFETIME NON-TOBACCO USER [facility] Nov 05, 2016 02:50 PM LIFETIME NON-TOBACCO USER [facility] Aug 12, 2015 03:21 PM QUIT TOBACCO USE > 7 YEARS AGO quit 40 years ago [facility] Mar 19, 2012 11:16 AM LIFETIME NON-TOBACCO USER [facility] Advance Directives: All historical and current Section Date Range: From patient's date of to the date document was created. This section includes ALL of a patient's completed or amended [place] Advance and Rescinded Directives. The entries below indicate that a directive exists for the patient, but an actual copy is not included with this document. The data comes from all [place] facilities. Date Advance Directives Provider Source Jan 22, 2012 ADVANCE DIRECTIVE DISCUSSION MIGUEL CEE [facility] Nov 07, 2009 ADVANCE DIRECTIVE DISCUSSION EMANI WINSTON [facility] Encounter Notes: All associated encounter notes This section contains the clinical notes associated to the Encounter. Date/Time Encounter Note(s) Provider Source May 15, 2024 08:05 AM LETTERS: LOCAL TITLE: PATIENT LETTER (T) STANDARD TITLE: LETTERS DATE OF NOTE: MAY 15, 2024@08:05 ENTRY DATE: MAY 15, 2024@08:05:56 AUTHOR: ISAI GORDON EXP COSIGNER: URGENCY: STATUS: COMPLETED [facility] Toll Free Number Primary Care Telephone Assistance can be reached at extension [phone] [facility] scheduling can be reached at extension [phone] [facility] scheduling can be reached at ext [phone] DIMITRI PAINTER [address], [address] [facility], Your recent test results are as follows: Slightly elevated blood sugar. Normal kidney function and electrolytes. Slightly elevated cholesterol panel. Your liver function is normal. Dr. Isai Gordon LAB CHEMISTRY & HEMATOLOGY Collection DT Specimen Test Name Result Units Ref Range 05/14/2024 14:33 SERUM CREATININE, Serum 1.19 mg/dL 0.50 - 1.40 eGFR(CKD-EPI 2020 69 mL/min Ref: >=60 SODIUM 138 mmol/L 135 - 145 POTASSIUM 4.6 mmol/L 3.5 - 5.0 CHLORIDE 105 mmol/L 100 - 110 CO2 24 mEq/L 20 - 30 UREA NITROGEN 25 mg/dL 7 - 25 GLUCOSE 106 H mg/dL 65 - 100 PROTEIN,TOTAL 7.7 g/dL 6.0 - 8.3 ALBUMIN 4.3 g/dL 3.5 - 5.0 ALK TERENCE 115 U/L 40 - 150 AST 25 U/L 5 - 34 BILIRUBIN, TOTAL 0.6 mg/dL 0.2 - 1.2 CHOLESTEROL 211 H mg/dL <7 - 199 TRIGLYCERIDE 203 H mg/dL 0 - 150 LDL calculated 122 mg/dL 0 - 129 CHOL/HDL 4.4 ALT 29 U/L <6 - 55 HDL CHOLESTEROL 48 mg/dL 40 - 60 Please call if you have any questions or concerns. Upcoming Appointments: No data available Sincerely, Your Primary Care Team [facility] [address] [facility] [address] [place] [address] [place] [address] [phone] [facility] [address] [place] [address] [place] [address] [phone] [facility] [address] [facility] Floor [address] [place] [address] [place] [address] [phone] ISAI GORDON [facility] May 14, 2024 02:04 PM PREVENTIVE MEDICINE NURSING NOTE: LOCAL TITLE: CLINICAL REMINDERS/NURSING STANDARD TITLE: PREVENTIVE MEDICINE NURSING NOTE DATE OF NOTE: MAY 14, 2024@14:04 ENTRY DATE: MAY 14, 2024@14:04:23 AUTHOR: FITO CARDONA EXP COSIGNER: URGENCY: STATUS: COMPLETED Influenza Immunization: The patient has received the seasonal influenza vaccine for the current season at another location. 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 /gin/ FITO CARDONA LPN License Practical Nurse Signed: 05/14/2024 14:05 FITO CARDONA [facility] May 14, 2024 02:01 PM PHYSICIAN NOTE: LOCAL TITLE: MD NOTE STANDARD TITLE: PHYSICIAN NOTE DATE OF NOTE: MAY 14, 2024@14:01 ENTRY DATE: MAY 14, 2024@14:01:27 AUTHOR: ISAI GORDON EXP COSIGNER: URGENCY: STATUS: COMPLETED DIMITRI PAINTER III is a 63 year old MALE who is being seen today in primary care for routine follow up. CARE TEAM Community Primary Care Provider: Dr. Effie Fontenot, [facility] Specialists: Community Specialists: pain management - [place] cardiology- Dr. 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 Allergic rhinitis 2. Low back pain (SNOMED CT 326293193) 3. Benign essential hypertension (SNOMED CT 5553536) 4. Hypercholesterolemia (SNOMED CT 86219698) 5. 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 Alcohol Use: couple times a week, never Tobacco Use: none Drug Use: none Exercise: goes to gym regularly, can walk 1 mile, inversion table ALLERGIES Patient has answered NKA MEDICATIONS Active and Recently Outpatient Medications (excluding Supplies): Active Outpatient Medications Status 1) ATORVASTATIN CALCIUM 80MG TAB TAKE ONE-HALF TABLET BY MOUTH ACTIVE EVERY DAY FOR CHOLESTEROL 2) HYDROCHLOROTHIAZIDE 25MG TAB TAKE ONE TABLET BY MOUTH ONCE ACTIVE DAILY TO PREVENT FLUID/CONTROL BLOOD PRESSURE 3) LISINOPRIL 40MG TAB TAKE ONE TABLET BY MOUTH EVERY DAY TO ACTIVE CONTROL BLOOD PRESSURE Inactive Outpatient Medications Status 1) MELOXICAM 15MG TAB TAKE ONE-HALF TABLET BY MOUTH ONCE DAILY Indication: FOR PAIN Active Non-VA Medications Status 1) Non-VA METOPROLOL SUCCINATE 100MG SA TAB 100MG BY MOUTH ONCE ACTIVE DAILY spironolactone 25 mg daily gabapentin 100 mg TID amlodipine 10 mg daily REVIEW OF SYMPTOMS POSITIVE FOR: back pain NEGATIVE FOR: CONSTITUTION: no weight loss/gain, fatigue, fevers, night sweats HEENT: no vision problems, hearing loss,swallowing difficulties, sinus pain CV: no chest pain, palpitations, dyspnea on exertion, orthopnea RESP: no cough, shortness of breath, wheezing GI: no abdominal pain, N/V/D, constipation, blood in stool, normal appetite : no urinary frequency, nocturia, hematuria MUSC: no joint pain, joint swelling NEURO: no headaches, dizziness, memory loss, tremor, weakness PSYCH: no depression, anxiety, suicidal or homicidal thoughts SKIN: no rash, new skin lesions PHYSICAL EXAM Vitals: - - - - - - - B/P: 128/82 (05/14/2024 13:52) pulse: 76 (05/14/2024 13:52) resp: 16 (05/14/2024 13:52) temp: 98.3 F [36.8 C] (05/14/2024 13:52) Ht: 72 in [182.9 cm] (05/02/2023 13:46) Wgt: 205 lb [92.99 kg] (05/14/2024 13:52) BMI: BMI: 27.9 Exam: - - - - - - - RRR S1 S2 LCTA bilat no LE edema RECENT LABS will do today ASSESSMENT AND PLAN 1. HTN- overdue for labs. stable BP. needs amlodipien refilled. spironolactone added by cardiology 2. chronic back pain- sees pain management in [place]. has neurostimulaor that he thinks the leads are in the wrong place, pain is more in thoracic spine. never established with whole health- agrees to engage 3. sleep apnea- using dental device 4. obesity- woudl liek to lose weigth. discussed MOVE program and intermittent fasting. discussed weigth loss meds- wegovy- which might be an option for him in the future, discussed mOVE program is a pre-requisite FOLLOW UP f/u in 6 mo VISIT TYPE:a MODERATE complexity visit where 30 minutes was spent in direct patient care, review of records and documentation. /gin/ ISAI GORDON D.O. PHYSICIAN Signed: 05/14/2024 14:35 ISAI GORDON [facility]
--- OUTSIDE RECORDS SUMMARY | 2024-07-16 12:37 | XMS_ITS | Clinical Summary ---
Author Organization [facility] Address [address] [place] [address] Care Team Providers Care Supervisor [employer] Name Role Phone Trupti Camacho MD Primary Care Provider [phone] Allergies Active Allergy Reactions Criticality Noted Date Comments Morphine Nausea And Vomiting,Rash Low 05/01/2016 Medications Medication Sig Dispensed Refills Start Date End Date Status gabapentin (NEURONTIN) 100 MG capsule Take 300 mg by mouth 2 (two) times a day. 0 04/16/2016 Active lisinopril (PRINIVIL,ZESTRIL) tablet 20 mg Take 40 mg by mouth daily. 0 Active amLODIPine (NORVASC) tablet 10 mg Take 10 mg by mouth every evening. 0 Active hydrochlorothiazide (HYDRODIURIL) tablet 25 mg Take 25 mg by mouth daily. 0 Active atorvastatin (LIPITOR) tablet 80 mg Take 80 mg by mouth daily. 0 Active metoprolol succinate (TOPROL-XL) 24 hr tablet 100 mg Take 100 mg by mouth daily. 0 Active dicyclomine (BENTYL) 10 MG capsuleIndications:as needed Take 10 mg by mouth 4 (four) times a day before meals and at bedtime. 0 Active Sennosides-Docusate Sodium (SENNA) 8.6-50 MG TABS Take 2 tablets by mouth every night at bedtime. 60 each 1 08/02/2016 Active oxyCODONE (ROXICODONE) 5 MG immediate release tablet Take 1-2 tablets (5-10 mg total) by mouth every 4 (four) hours as needed for pain. 60 tablet 0 08/02/2016 Active methocarbamol (ROBAXIN) 750 MG tablet Take 1 tablet (750 mg total) by mouth 4 (four) times a day as needed (pain). 60 tablet 0 08/02/2016 Active Active Problems Problem Noted Date Diagnosed Date S/P lumbar fusion 09/05/2016 Lumbosacral spondylosis without myelopathy 06/05 Family History Medical History Relation Name Comments Heart disease Father Hypertension Father Diabetes Mother Relation Name Status Comments Father Mother Social History Tobacco Use Types Packs/Day Years Used Date Smoking Tobacco: Never Smokeless Tobacco: Never Alcohol Use Standard Drinks/Week Comments Yes 0 (1 standard drink = 0.6 oz pur e alcohol) occasional Sex and Gender Information Value Date Recorded Sex Assigned at Not on file Gender Identity Not on file Sexual Orientation Not on file Last Filed Vital Signs Vital Sign Reading Time Taken Comments Blood Pressure 120/80 09/05/2016 1:23 PM EDT Pulse 97 08/03/2016 1:00 PM EST Temperature 35.9 ??C (96.7 ??F) 09/05/2016 1:23 PM ED T Respiratory Rate 18 08/03/2016 1:00 PM EST Oxygen Saturation 98% 08/03/2016 1:00 PM EST Inhaled Oxygen Concentration - - Weight 86.2 kg (190 lb) 08/01/2016 3:00 PM EST Height 181.6 cm (5' 11.5 ) 08/01/2016 3:00 PM ES T Body Mass Index 26.13 08/01/2016 3:00 PM EST Plan of Treatment Health Maintenance Due Date Last Done Comments Hepatitis C Screening 1960 COVID-19 Vaccine (#1) 1960 Depression Screening 1972 Preventative Health Evaluation 1978 DTap / Tdap / Td (1 - Tdap) 1979 Colon Cancer Screening (Colonoscopy) 2005 Shingrix-Zoster Vaccine (1 of 2) 2010 Influenza Vaccine (#1) 2024 Pneumococcal Vaccine (1 of 1 - PCV) 2025 RSV Adult > 60+ Yrs or Pregn ant (1 - 1-dose 75+ series) 2035 Hepatitis B Vaccines Aged Out No long er eligible based on patient's age to complete this topic Pneumococcal Vaccine Aged Out No long er eligible based on patient's age to complete this topic RSV Ped < 20 months Aged Out No longe r eligible based on patient's age to complete this topic Medical Devices Implanted Type Area Floor Cashier Device Identifier Shelf Expiration Date Model / Serial / Lot Graft Putty [facility] - [id number] - [id number] Implanted:Qty: 1 on 08/01/2016 by Osvaldo Pal MD at [facility] and Med Anterior: Spine Lumbar TISSUENET 09/07/2017 VX-[id number] / [id number] / Component Cage Medium [id number] Degree [place] - [id number] - [id number] Implanted:Qty: 1 on 08/01/2016 by Osvaldo Pal MD at [facility] and Med Anterior: Spine Lumbar [employer] [id number] / / Screw 5.5x30 Variable - [id number] - [id number] Implanted:Qty: 3 on 08/01/2016 by Osvaldo Pal MD at [facility] and Med Anterior: Spine Lumbar [employer] 176.230 / / Advance Directives For more information, please contact: [phone] Latest Code Status on File Code Status Date Activated Date Inactivated Comments Full Code 08/01/2016 8:11 AM 08/04/2016 12:12 AM This code status was ascertained in the following way: patient's wishes. Care Teams Supervisor [employer] Relationship Specialty Start Date End Date Trupti Camacho MD [address] [place] [address] [phone] PCP - General Internal Medicine 05/01/16
--- OUTSIDE RECORDS SUMMARY | 2024-07-16 12:37 | XMS_ITS ---
Author Name [facility] [place] Organization [facility] [place] Address [address] [place] [address] Care Team Providers Care Phonograph Cartridge Assembler Name Role Phone ISAI ADDISON Primary Care Provider Unavailabl e Insurance Providers: [...] Patient's Relationship to Policy Huerta AETNA [facility] ORGANIZAT ION FED-H [place] Jul 09, 2005 [id number] [phone] Arlene PAINTER EORGE PATIENT AETNA [facility] POINT OF SERVICE [place] EMPLO GALE Mar 05, 2010 [id number] Arlene PAINTER EORGE PATIENT AETNA RX BIN [id number] PRESCRIPT ION [place] EM[place]O ALLISON Jul 25, 2008 [id number] Arlene PAINTER EORGE PATIENT AETNA* [facility] CE ORGANIZ [place] EMPLO ALLISON May 27, 2006 [id number] Arlene PAINTER EORGE PATIENT [place] BS [place] BLU[place] PREFERRED PROVIDER ORGANIZAT ION (PPO) RAEANN OGDEN @ [place]N[place]Z Sep 04, 2005 [id number] Arlene PAINTER EORGE PATIENT CATAMADESTINI PRESCRIPT ION Aug 25, 2012 [id number] SECOND [id number] Arlene PAINTER EORGE PATIENT CATAMARAN [id number] PRESCRIPT ION [facility] Jul 11, 2016 [id number] SECOND [id number] Arlene PAINTER EORGE PATIENT [employer] ([id number]) PRESCRIPT ION [facility] Nov 24, 2017 [id number] Arlene PAINTER EORGE PATIENT [employer] ([id number]) PRESCRIPT ION [facility] EDDBA Nov 24, 2004 [id number] DBASE [id number] Arlene PAINTER EORGE PATIENT [facility] ORGANIZAT [facility] Nov 24, 2017 [id number] Arlene PAINTERRGE PATIENT [facility] OF SERVICE [facility] Jul 11, 2016 [id number] Arlene PAINTERRGE PATIENT [facility] ORGANIZ [facility] May 27, 2015 [id number] Arlene PAINTERRGE PATIENT [facility] ORGANIZ [facility] Jul 25, 2014 [id number] Arlene PAINTERRGE PATIENT [facility] ORGANIZ [facility] Aug 25, 2012 [id number] Arlene PAINTERRALIN PATIENT Selected Encounter This section includes the information on record at [place] for the Encounter. Date/Time Encounter Type Encounter Description Reason Pro vider Source October 08, 2023 03:43 PM Outpatient Encounter ADMIN PAT ACTIVTIES (MASNONCT) IHE Encounter Template Text not used by [facility] Plan of Treatment: Future Appointments (+ 6 months) and Future Tests (+/- 45 days) The Plan of Treatment section includes future care activities for the patient from all VA treatmentfacilities. This section includes future appointments and future orders which are active, pending or scheduled. Future Appointments This section includes appointments that were scheduled to occur 6 months from the date of the Encounter, up to a maximum of 20 appointments. The data comes from all [place] treatment facilities. Appointment Date/Time Appointment Type Appointme nt Facility Name Oct 29, 2023 02:00 PM AMBULATORY - MEDICINE [facility] Lab Results: +/- 30 days of the encounter This section includes the Chemistry and Hematology Lab Results on record with [place] for the patient. Radiology Reports and Pathology Reports are provided separately, in subsequent sections. Lab Results This section contains the Chemistry/Hematology Results that were resulted 30 days before or 30 daysafter the date of the Encounter. Date/Time Source Result Type Result - Unit Interpretation Reference Range Comment Oct 29, 2023 02:57 PM [facility] PSA Specimen Type: SERUM No comment entered. Ordering Provider: ISAI ADDISON Report Released Date/Time: October 16, 2023 10:28 AM Reporting [facility] [address] [address] Performing Lab: [facility] [address] PSA 0.63 ng/mL 0.00-4.00 Oct 29, 2023 02:57 PM [facility] LIPID PANEL FASTING Specimen Type: SERUM No comment entered. Ordering Provider: ISAI ADDISON Report Released Date/Time: October 16, 2023 10:28 AM Reporting [facility]: [facility] [address] Performing Lab: [facility] [address] CHOLESTEROL 200 mg/dL H TRIGLYCERIDE 197 mg/dL H 0-150 LDL calculated 107 mg/dL 0-129 CHOL/HDL 3.7 HDL CHOLESTEROL 54 mg/dL 40-60 Oct 29, 2023 02:57 PM [facility] BASIC METABOLIC PANEL (fasting) Specimen Type: SERUM No comment entered. Ordering Provider: ISAI ADDISON Report Released Date/Time: October 16, 2023 10:28 AM Reporting Lab: [facility] [place] [facility] [address] [facility] [address] Performing Lab: [facility] [place] [facility] [address] [address] UREA NITROGEN 25 mg/dL 7-25 GLUCOSE 106 mg/dL H 65-100 SODIUM 138 mmol/L 135-145 POTASSIUM 4.3 mmol/L 3.5-5.0 CHLORIDE 106 mmol/L 100-110 CO2 24 meq/L 20-30 CREATININE, Serum 1.20 mg/dL 0.50-1.40 eGFR(CKD-EPI 2020) 68 mL/min >60 Social History: Smoking Status (Most current) and Tobacco Use (All prior to encounter date) This section includes the most current, and the historical, smoking and tobacco- related health factors from the [place] facility where the Encounter took place. Current Smoking Status This section includes the most current smoking, or tobacco-related health factor, from the [place] facility where the Encounter took place. Date/Time Current Smoking Status Comment [facility] itOctober 16, 2022 02:00 PM [facility]TO[facility]ACCO [facility] Tobacco Use History This section includes a history of the smoking, or tobacco-related health factors, that were collected on or before the date of the Encounter. The data comes from the [place] facility where the Encounter took place. Date/Time Smoking Status/Tobac co Use Comment [facility] Nov 13, 2019 01:28 PM VA-TOBACCO NEVER USED [facility] [place] [facility] May 23, 2018 03:31 PM VA-TOBACCO NEVER USED [facility] [place] [facility] Nov 22, 2017 02:56 PM LIFETIME NON-TOBACCO USER [facility] [place] [facility] Nov 05, 2016 02:50 PM LIFETIME NON-TOBACCO USER [facility] [place] [facility] Aug 12, 2015 03:21 PM QUIT TOBACCO USE > 7 YEARS AGO quit 40 years ago [facility] Mar 19, 2012 11:16 AM [facility] Advance Directives: All historical and current Section Date Range: From patient's date of to the date document was created. This section includes ALL of a patient's completed or amended [place] Advance and Rescinded Directives. The entries below indicate that a directive exists for the patient, but an actual copy is not included with this document. The data comes from all [place] facilities. Date Advance Directives Provider Source Jan 22, 2012 ADVANCE DIRECTIVE DISCUSSION MIGUEL CEE [employer] [facility] Nov 07, 2009 ADVANCE DIRECTIVE DISCUSSION T[place]HE[place]I [facility] Encounter Notes: All associated encounter notes This section contains the clinical notes associated to the Encounter. Date/Time Encounter Note(s) Provider Source October 08, 2023 03:43 PM PHARMACY NOTE: LOCAL TITLE: V1 PHARMACY CUSTOMER CARE MEDICATION RENEWAL STANDARD TITLE: PHARMACY NOTE DATE OF NOTE: OCTOBER 08, 2023@15:43 ENTRY DATE: OCTOBER 08, 2023@15:43:51 AUTHOR: SAMMY GUAMAN EXP COSIGNER: URGENCY: STATUS: COMPLETED V1 PHARMACY CUSTOMER CARE MEDICATION RENEWAL Has ADDENDA Date: September Division: [facility] referred by Pharmacy Call Center for medication renewal: Non-controlled/maintenanc e medication Medications requested: [id number] ATORVASTATIN CALCIUM 80MG TAB [id number] LISINOPRIL 40MG TAB Defer to primary care provider To be mailed . Please review and renew if appropriate. *This note was generated by [facility]. If you have any questions or need assistance, do not contact this author. Please refer all questions to your local, on-site pharmacy departments. /gin/ SAMMY GUAMAN CPhT ASSEMBLER [employer], [place]/PHARMACY CUSTOMER CARE Signed: 10/08/2023 15:44 Receipt Acknowledged By: 10/09/2023 12:34 /gin/ ISAI ADDISON D.O. PHYSICIAN 10/08/2023 16:14 /gin/ TRE RAZO RN REGISTERED NURSE 10/08/2023 ADDENDUM STATUS: COMPLETED ALERT TO PCP for consideration of requested medication renewal /yanick RAZO RN REGISTERED NURSE Signed: 10/08/2023 16:14 SAMMY GUAMAN [facility]
--- OUTSIDE RECORDS SUMMARY | 2024-07-16 12:38 | XMS_ITS | Clinical Summary ---
Author Organization [facility] it Address [address] [place] [address] Care Team Providers Care Supervisor Quality Control Name Role Phone Turpti Camacho MD Primary Care Provider [phone] Surgical History Surgery Date Site/Laterality Comments INTRATHECAL PUMP IMPLANTATION PROCEDURE:INTRATHECAL PUMP IMPLANTATION PROSTATE BIOPSY PROCEDURE:PROSTATE BIOPSY BACK SURGERY PROCEDURE:BACK SURGERY;COMMENT:x2 LUMBAR FUSION 08/01/2016 Bilateral PROCEDURE:LUMBAR FUSION;COMMENT:Procedure: L5-S1 FUSION SPINE LUMBAR ANTERIOR 1 INTERSPACE; Surgeon: Osvaldo Pal MD; [facility]; Service: Spine; Laterality: Bilateral; Medical History Medical History Date Comments Anxiety DX:Anxiety Hypertension DX:Hypertension GERD (gastroesophageal reflux disease) DX:GERD (gastroesophageal reflux disease) PONV (postoperative nausea and vomiting) DX:PONV (postoperative nausea and vomiting) IBS (irritable bowel syndrome) D X:IBS (irritable bowel syndrome) Heart murmur DX:Heart murmur Sleep apnea, obstructive DX:Slee p apnea, obstructive;COMMENT:non compliant with cpap Hyperlipidemia DX:Hyperlipidemi a Presence of intrathecal pump DX: Presence of intrathecal pump Family History Medical History Relation Name Comments Heart disease Father Hypertension Father Diabetes Mother Relation Name Status Comments Father Mother Social History Tobacco Use Types Packs/Day Years Used Date Smoking Tobacco: Never Smokeless Tobacco: Never Alcohol Use Standard Drinks/Week Comments Yes 0 (1 standard drink = 0.6 oz pur e alcohol) Sex and Gender Information Value Date Recorded Sex Assigned at Not on file Legal Sex Male 12:29 AM EST Gender Identity Not on file Sexual Orientation Not on file Obstetrics History Plan of Treatment Health Maintenance Due Date Last Done Comments DTaP,Tdap,and Td Vaccines (1 - Tdap) 1979 Pneumococcal Vaccine: 50+ Ye ars (1 of 1 - PCV) 2010 Zoster Vaccines (1 of 2) 2010 COVID-19 Vaccine ( - 2023-2 5 season) 2024 Influenza Vaccine (#1) 2024 RSV Immunization Patients 60 + Years Old (1 - 1-dose 75+ series) 2035 HIB Vaccines Aged Out No longer eligi ble based on patient's age to complete this topic HPV Vaccines Aged Out No longer eligi ble based on patient's age to complete this topic Hepatitis A Vaccines Aged Out No long er eligible based on patient's age to complete this topic Hepatitis B Vaccines Aged Out No long er eligible based on patient's age to complete this topic IPV Vaccines Aged Out No longer eligi ble based on patient's age to complete this topic MMR Vaccines Aged Out No longer eligi ble based on patient's age to complete this topic Meningococcal ACWY Vaccine Aged Out N o longer eligible based on patient's age to complete this topic Meningococcal B Vacine Aged Out No lo nger eligible based on patient's age to complete this topic Pneumococcal Vaccine: Pediat rics (0 to 5 Years) and At-Risk Patients (6 to 64 Years) Aged Out No longer eligible b ased on patient's age to complete this topic RSV Immunization Patients Un franklin 20 months Aged Out No longer eligible b ased on patient's age to complete this topic Varicella Vaccines Aged Out No longer eligible based on patient's age to complete this topic Care Teams Supervisor Quality Control Relationship Specialty Start Date End Date Trupti Camacho MD [address] [place] [phone] PCP - General Internal Medicine 05/01/16
--- OUTSIDE RECORDS SUMMARY | 2024-07-16 12:38 | XMS_ITS ---
Author Name [facility] [place] Organization [place] Address [address] [place] [address] Care Team Providers Care Supervisor Trust Accounts Name Role Phone ISAI ADDISON Primary Care [...] Patient's Relationship to Policy [place] [facility] ORGAN[facility] ION FED-H [place] Jul 09, 2005 [id number] Arlene PAINTER EORGE PATIENT AETNA [facility] POINT OF SERVICE [place] EM[place]O GALE Mar 05, 2010 [id number] Arlene PAINTER EORGE PATIENT AETNA RX BIN [id number] PRESCRIPT ION [place] EM[place]O ALLISON Jul 25, 2008 [id number] Arlene PAINTER EORGE PATIENT [facility] CE ORGANIZ [place] EMPLO ALLISON May 27, 2006 [id number] [phone] Arlene PAINTER EORGE PATIENT [place] BS [place] BLUECARD PREFERRED PROVIDER ORGANIZAT ION (PPO) [facility] PRISCA OGDEN @ [place] Sep 04, 2005 [id number] Arlene PAINTER EORGE PATIENT [employer] PRESCRIPT ION Aug 25, 2012 [id number] SECOND [id number] Arlene PAINTER EORGE PATIENT [employer] [id number] PRESCRIPT ION [facility] Jul 11, 2016 [id number] SECOND [id number] Arlene PAINTER EORGE PATIENT [employer] ([id number]) PRESCRIPT ION [facility] Nov 24, 2017 [id number] Arlene PAINTER EORGE PATIENT [employer] ([id number]) PRESCRIPT ION DHRMM EDDBA Nov 24, 2004 [id number] Arlene PAINTER EORGE PATIENT [facility] Nov 24, 2017 [id number] Arlene PAINTERRGE PATIENT [facility] OF SERVICE [facility] Jul 11, 2016 [id number] Arlene PAINTERRGE PATIENT [facility] ORGANIZ [facility] May 27, 2015 [id number] Arlene PAINTERRGE PATIENT [facility] ORGANIZ [facility] Jul 25, 2014 [id number] Arlene PAINTERRGE PATIENT [facility] ORGANIZ [facility] Aug 25, 2012 [id number] Arlene PAINTERRALIN PATIENT Selected Encounter This section includes the information on record at [place] for the Encounter. Date/Time Encounter Type Encounter Description Reason Provider Source Oct 29, 2023 02:00 PM OFFICE O/P EST MOD 30 MIN PRIMARY CARE/MEDICINE ICD-10-CM G47.30 Sleep apnea, unspecified FURCOLO,ISAI IHE Encounter Template Text not used by VA Assessments - Encounter Diagnoses This section includes the primary and secondary diagnoses documented for the Encounter. Date/Time Primary/Secondary Diagnosis Diagnosis Name Provider Source Oct 29, 2023 02:41 PM PRIMARY Sleep apnea, unspecified ISAI ADDISON [facility] [place] [facility] Oct 29, 2023 02:41 PM SECONDARY Essential (primary) hypertension ISAI ADDISON [facility] [place] [facility] Oct 29, 2023 02:41 PM SECONDARY Low back pain, unspecified FURCOLO,ISAI [facility] [place] [facility] Oct 29, 2023 02:41 PM SECONDARY Pure hypercholesterolem ia, unspecified [facility] Lab Results: +/- 30 days of the encounter This section includes the Chemistry and Hematology Lab Results on record with [place] for the patient. Radiology Reports and Pathology Reports are provided separately, in subsequent sections. Lab Results This section contains the Chemistry/Hematology Results that were resulted 30 days before or 30 daysafter the date of the Encounter. Date/Time Source Result Type Result - Unit Interpretation Reference Range Comment Oct 29, 2023 02:57 PM [facility] PSA Specimen Type: SERUM No comment entered. Ordering Provider: ISAI ADDISON Report Released Date/Time: October 16, 2023 10:28 AM Reporting Lab: [facility] [address] [facility] [address] Performing Lab: [facility] [address] [facility] [address] PSA 0.63 ng/mL 0.00-4.00 Oct 29, 2023 02:57 PM [facility] BASIC METABOLIC PANEL (fasting) Specimen Type: SERUM No comment entered. Ordering Provider: ISAI ADDISON Report Released Date/Time: October 16, 2023 10:28 AM Reporting Lab: [facility] [address] [facility] [address] Performing [facility]: [facility] [address] [facility] [address] UREA NITROGEN 25 mg/dL 7-25 GLUCOSE 106 mg/dL H 65-100 SODIUM 138 mmol/L 135-145 POTASSIUM 4.3 mmol/L 3.5-5.0 CHLORIDE 106 mmol/L 100-110 CO2 24 meq/L 20-30 CREATININE, Serum 1.20 mg/dL 0.50-1.40 eGFR(CKD-EPI 2020) 68 mL/min >60 Oct 29, 2023 02:57 PM [place] [facility] [place] [facility] LIPID PANEL FASTING Specimen Type: SERUM No comment entered. Ordering Provider: ISAI ADDISON Report Released Date/Time: October 16, 2023 10:28 AM Reporting Lab: [facility] [place] [facility] [address] [facility] [address] Performing Lab: [facility] [address] [facility] [address] CHOLESTEROL 200 mg/dL H TRIGLYCERIDE 197 mg/dL H 0-150 LDL calculated 107 mg/dL 0-129 CHOL/HDL 3.7 HDL CHOLESTEROL 54 mg/dL 40-60 Vital Signs: All taken on the encounter date This section contains inpatient and outpatient Vital Signs collected on the date of the Encounter. Date/Time Temperature Pulse Blood Pressure Respiratory Rate SP02 Pain Height Weight Body Mass Index Source Oct 29, 2023 01:50 PM 98.2 81 109/77 16 96 3 200 27 [facility] Social History: Smoking Status (Most current) and Tobacco Use (All prior to encounter date) This section includes the most current, and the historical, smoking and tobacco- related health factors from the [place] facility where the Encounter took place. Current Smoking Status This section includes the most current smoking, or tobacco-related health factor, from the [place] facility where the Encounter took place. Date/Time Current Smoking Status Comment Carole barboza Oct 29, 2023 02:00 PM VA-TOBACCO NEVER USED [facility] Tobacco Use History This section includes a history of the smoking, or tobacco-related health factors, that were collected on or before the date of the Encounter. The data comes from the [place] facility where the Encounter took place. Date/Time Smoking Status/Tobac co Use Comment Facility October 16, 2022 02:00 PM VA-TOBACCO NEVER USED [place] [facility] [place] [facility] Nov 13, 2019 01:28 PM VA-TOBACCO NEVER USED [place] [facility] [place] [facility] May 23, 2018 03:31 PM VA-TOBACCO NEVER USED [place] [facility] [place] [facility] Nov 22, 2017 02:56 PM LIFETIME NON-TOBACCO USER [facility] Nov 05, 2016 02:50 PM LIFETIME NON-TOBACCO USER [place] [facility] [place] [facility] Aug 12, 2015 03:21 PM QUIT TOBACCO USE > 7 YEARS AGO quit 40 years ago [facility] Mar 19, 2012 11:16 AM LIFETIME NON-TOBACCO USER [facility] Advance Directives: All historical and current Section Date Range: From patient's date of to the date document was created. This section includes ALL of a patient's completed or amended [place] Advance and Rescinded Directives. The entries below indicate that a directive exists for the patient, but an actual copy is not included with this document. The data comes from all [place] facilities. Date Advance Directives Provider Source Jan 22, 2012 ADVANCE DIRECTIVE DISCUSSION MIGUEL CEE [employer] [facility] Nov 07, 2009 ADVANCE DIRECTIVE DISCUSSION EMANI WINSTON [facility] Encounter Notes: All associated encounter notes This section contains the clinical notes associated to the Encounter. Date/Time Encounter Note(s) Provider Source Oct 29, 2023 02:11 PM PHYSICIAN NOTE: LOCAL TITLE: MD NOTE STANDARD TITLE: PHYSICIAN NOTE DATE OF NOTE: OCT 29, 2023@14:11 ENTRY DATE: OCT 29, 2023@14:11:14 AUTHOR: ISAI ADDISON COSIGNER: URGENCY: STATUS: COMPLETED NOTE Has ADDENDA DIMITRI PAINTER III is a 63 year old MALE who is being seen today in primary care for routine follow up. CARE TEAM Community Primary Care Provider: Dr. Effie Fontenot [facility] Specialists: Community Specialists: pain management - [place] [facility]- Dr. 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 Allergic rhinitis 2. Low back pain (SNOMED CT 676036972) 3. Benign essential hypertension (SNOMED CT 3022586) 4. Hypercholesterolemia (SNOMED CT 98744451) 5. 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 Active and Recently Outpatient Medications (excluding Supplies): Active Outpatient Medications Status 1) ATORVASTATIN CALCIUM 80MG TAB TAKE ONE-HALF TABLET BY ACTIVE MOUTH EVERY DAY FOR CHOLESTEROL 2) LISINOPRIL 40MG TAB TAKE ONE TABLET BY MOUTH EVERY ACTIVE DAY TO CONTROL BLOOD PRESSURE 3) MELOXICAM 15MG TAB TAKE ONE-HALF TABLET BY MOUTH ONCE ACTIVE DAILY FOR PAIN Inactive Outpatient Medications Status 1) AMLODIPINE BESYLATE 10MG TAB TAKE ONE TABLET BY MOUTH ONCE DAILY FOR BLOOD PRESSURE/HEART, DO NOT TAKE WITH GRAPEFRUIT JUICE 2) GABAPENTIN 100MG CAP TAKE TWO CAPSULES BY MOUTH THREE TIMES A DAY TO PREVENT SEIZURES OR PAIN 3) HYDROCHLOROTHIAZIDE 25MG TAB TAKE ONE TABLET BY MOUTH ONCE DAILY TO PREVENT FLUID/CONTROL BLOOD PRESSURE Active Non-VA Medications Status 1) Non-VA METOPROLOL SUCCINATE 100MG SA TAB 100MG BY ACTIVE MOUTH ONCE DAILY 7 Total Medications REVIEW OF SYMPTOMS POSITIVE FOR: back pain [...] - - - - - - B/P: 109/77 (10/29/2023 13:50) pulse: 81 (10/29/2023 13:50) resp: 16 (10/29/2023 13:50) temp: 98.2 F [36.8 C] (10/29/2023 13:50) Ht: 72 in [182.9 cm] (05/02/2023 13:46) Wgt: 200 lb [90.72 kg] (10/29/2023 13:50) BMI: BMI: 27.2 Exam: - - - - - - - RRR S1 S2 LCTA bilat no LE edema RECENT LABS BMP (FASTING) Collection DT Specimen Test Name Result Units Ref Range 05/02/2023 14:43 SERUM UREA NITROGEN 24 mg/dL 7 - 05/02/2023 14:43 SERUM GLUCOSE 102 H mg/dL 65 - 100 05/02/2023 14:43 SERUM SODIUM 140 mmol/L 135 - 145 05/02/2023 14:43 SERUM POTASSIUM 4.8 mmol/L 3.5 - 5.0 05/02/2023 14:43 SERUM CHLORIDE 104 mmol/L 100 - 110 05/02/2023 14:43 SERUM CO2 26 mEq/L 20 - 05/02/2023 14:43 SERUM CREATININE, Serum 1.23 mg/dL 0.50 - 1.40 11/20/2019 13:42 SERUM !! eGFR (IDMS) >60 Ref: >=60 !! Indicates COMMENTS AVAILABLE...Refer to Interim Lab Report. LIVER PANEL TREND Collection DT Spec AST ALT T BILI ALK TERENCE T. PROT ALBUMIN 10/10/2022 13:55 SERUM 28 30 0.6 103 7.4 4.2 11/20/2019 13:42 SERUM 23 24 0.7 104 7.3 4.0 11/18/2018 14:59 SERUM 28 33 0.6 107 7.2 4.1 11/22/2017 15:39 SERUM 25 24 0.7 107 7.6 4.3 05/15/2017 10:36 SERUM 26 23 0.7 111 7.2 3.9 LIPID PANEL TREND Collection DT Spec CHOL HDL CHO/HDL LDL-c TRIG 05/02/2023 14:43 SERUM 192 48 4.0 115 144 10/10/2022 13:55 SERUM 201 H 56 3.6 107 191 H 11/20/2019 13:42 SERUM 162 63 H 2.6 75 118 11/18/2018 14:59 SERUM 166 58 2.9 84 119 11/22/2017 15:39 SERUM 172 62 H 2.8 89 106 CBC TREND Collection DT Spec WBC RBC HGB HCT MCV MCH PLT 10/10/2022 13:55 BLOOD 7.20 4.66 14.3 41.9 89.9 30.7 286 11/20/2019 13:42 BLOOD 6.70 4.54 13.8 40.2 88.5 30.4 287 11/18/2018 14:59 BLOOD 6.23 4.84 14.6 42.3 87.4 30.2 277 11/22/2017 15:39 BLOOD 6.63 4.74 14.7 42.1 88.8 31.0 278 05/15/2017 10:36 BLOOD 7.15 4.56 13.7 40.3 88.4 30.0 256 ASSESSMENT AND PLAN 1. HTN- overdue for labs. has borderline low BP now- on [address] Guevara 2. chronic back pain- sees pain management in [place]. might benefit from [facility]- made referral 3. sleep apnea- could not tolerate CPAP mask- just got dental device FOLLOW UP f/u in 6 mo VISIT TYPE:a MODERATE complexity visit where 30 minutes was spent in direct patient care, review of records and documentation. Upcoming Appointments: No future appointments /gin/ ISAI ADDISON D.O. PHYSICIAN Signed: 10/29/2023 14:42 04/10/2024 ADDENDUM STATUS: COMPLETED Follow Up Colonoscopy: Colonoscopy is due based on information available to this reminder. Prior/outside Colonoscopy results: [facility], no polyps, repeat 10 years Date: October 19, 2022 Average risk screening reminder set 9 years from APR 10, 2024. Comment: due 09/2032 /gin/ ISAI ADDISON D.O. PHYSICIAN Signed: 04/10/2024 15:48 ISAI ADDISON [place] [facility] [place] [facility] Oct 29, 2023 02:04 PM PREVENTIVE MEDICINE NURSING NOTE: LOCAL TITLE: CLINICAL REMINDERS/NURSING STANDARD TITLE: PREVENTIVE MEDICINE NURSING NOTE DATE OF NOTE: OCT 29, 2023@14:04 ENTRY DATE: OCT 29, 2023@14:04:43 AUTHOR: FITO CARDONA EXP COSIGNER: URGENCY: STATUS: COMPLETED Advance Directive Screen MH AD: Patient does not have a completed advance directive on file at any facility, [facility] or outside. S/he is not interested in completing one at this time. The patient received education about Advance Directives and written notification of his/her rights. Comment: BLANK FORM PROVIDED TO PER REQUEST Suicide Screen: C-SSRS Screening [place] Suicide Severity Rating Scale (C-SSRS) screener 1. Over the past month, have you wished you were or wished you could go to sleep and not wake up? No 2. Over the past month, have you had any actual thoughts of killing yourself? No 3. Over the past month, have you been thinking about how you might do this? Response not required due to responses to other questions. 4. Over the past month, have you had these thoughts and had some intention of acting on them? Response not required due to responses to other questions. 5. Over the past month, have you started to work out or worked out the details of how to kill yourself? Response not required due to responses to other questions. 6. If yes, at any time in the past month did you intend to carry out this plan? Response not required due to responses to other questions. 7. In your lifetime, have you ever done anything, started to do anything, or prepared to do anything to end your life (for example, collected pills, obtained a gun, gave away valuables, went to the roof but didn't jump)? No 8. If YES, was this within the past 3 months? Response not required due to responses to other questions. Homelessness/Food Insecurity Screen: In the past 2 months, have you been living in stable housing that you own, rent, or stay in as part of a household? Yes - Living in stable housing. Are you worried or concerned that in the next 2 months you may NOT have stable housing that you own, rent, or stay in as part of a household? No - Not worried about housing near future The reports the following: Within the past 12 months, you worried whether your food would run out before you got money to buy more. Never true Within the past 12 months, the food you bought just didn't last and you didn't have money to get more. Never true Follow Up Colonoscopy: Colonoscopy is due based on information available to this reminder. A colonoscopy has been completed elsewhere and we are waiting for results. PER COLONOSCOPY DONE IN 2022 AT [facility], FAX SENT WITH THE REQUEST OF RESULTS, Depression Screening: Perform PHQ-2 A PHQ-2 screen was performed. The score was 0 which is a negative screen for depression. Over the past two weeks, how often have you been bothered by the following problems? 1. Little interest or pleasure in doing things Not at all 2. Feeling down, depressed, or hopeless Not at all Tobacco Use Screening: The patient has never used tobacco. Influenza Immunization: The patient has received the seasonal influenza vaccine for the current season at another location. Documented: INFLUENZA, UNSPECIFIED FORMULATION Historical Date Administered: Feb 01, 2023 Series: Complete Outside Location: Outside Healthcare Provider Information Source: FROM PATIENT'S RECALL Alcohol Use Screen (AUDIT-C): Alcohol Screen: SCREEN FOR ALCOHOL (AUDIT-C) An alcohol screening test (AUDIT-C) was negative (score=3). 1. How often did you have a drink containing alcohol in the past year? Consider a drink to be a 12 ounce can or bottle of regular beer, 8 ounces of malt liquor, a 5 ounce glass of table wine, or a 1.5 ounce shot of liquor (like scotch, gin, or vodka). Two to four times a month 2. How many drinks containing alcohol did you have on a typical day when you were drinking in the past year? Three or four drinks 3. How often did you have six or more drinks on one occasion in the past year? Never /es/ FITO CARDONA LPN License Practical Nurse Signed: 10/29/2023 14:07 FITO CARDONA [facility]
--- OUTSIDE RECORDS SUMMARY | 2024-07-16 12:38 | XMS_ITS ---
Author Name [facility] Organization [facility] [place] Address [address] [place] [address] Care Team Providers Care Photographer Aerial Name Role Phone ISAI ADDISON Primary Care [...] Patient's Relationship to Policy [place] [employer] [facility] ORGAN[facility] ION FED-H [place] Jul 09, 2005 [id number] [phone] Arlene PAINTER EORGE PATIENT [facility] POINT OF SERVICE [place] GALE Mar 05, 2010 [id number] Arlene PAINTER EORGE PATIENT AETNA RX BIN [id number] PRESCRIPT ION [place] ALLISON Jul 25, 2008 [id number] [phone] Arlene PAINTER EORGE PATIENT AETNA* [facility] CE ORGANIZ [place] EM[place] ALLISON May 27, 2006 [id number] Arlene PAINTER EORGE PATIENT [place] BS [place] [employer] PREFERRED PROVIDER ORGANIZAT ION (PPO) RAEANN OGDEN @ [place] Sep 04, 2005 [id number] Arlene PAINTER EORGE PATIENT CATAMADESTINI PRESCRIPT ION Aug 25, 2012 [id number] [id number] Arlene PAINTER EORGE PATIENT CATAMARAN [id number] PRESCRIPT ION [facility] Jul 11, 2016 [id number] SECOND [phone] Arlene PAINTER EORGE PATIENT [facility] ([id number]) PRESCRIPT ION [facility] Nov 24, 2017 [id number] Arlene PAINTER EORGE PATIENT [employer] ([id number]) PRESCRIPT ION [facility] EDDBA Nov 24, 2004 [id number] Arlene PAINTER EORGE PATIENT [facility] ORGANIZAT [facility] Nov 24, 2017 [id number] Arlene PAINTERRGE PATIENT [facility] OF SERVICE [facility] Jul 11, 2016 [phone] Arlene PAINTERRGE PATIENT [facility] ORGANIZ [facility] May 27, 2015 [id number] Arlene PAINTERRGE PATIENT [facility] ORGANIZ [facility] Jul 25, 2014 [id number] Arlene PAINTERRGE PATIENT [facility] ORGANIZ [facility] Aug 25, 2012 [id number] Arlene PAINTERRALIN PATIENT Selected Encounter This section includes the information on record at [place] for the Encounter. Date/Time Encounter Type Encounter Description Reason Pro vider Source Nov 15, 2023 06:09 AM Outpatient Encounter ADMIN PAT ACTIVTIES (MASNONCT) IHE [...] 20 appointments. The data comes from all [place] treatment facilities. Appointment Date/Time Appointment Type Appointme nt Facility Name May 14, 2024 02:00 PM AMBULATORY - MEDICINE [facility] Lab Results: +/- 30 days of the encounter This section includes the Chemistry and Hematology Lab Results on record with [place] for the patient. Radiology Reports and Pathology Reports are provided separately, in subsequent sections. Lab Results This section contains the Chemistry/Hematology Results that were resulted 30 days before or 30 daysafter the date of the Encounter. Date/Time Source Result Type Result - Unit Interpretation Reference Range Comment Oct 29, 2023 02:57 PM [facility] PSA Specimen Type: SERUM No comment entered. Ordering Provider: ISAI ADDISON Report Released Date/Time: October 16, 2023 10:28 AM Reporting Lab: [facility] [address] [id number] Performing Lab: [facility] [address] [id number] PSA 0.63 ng/mL 0.00-4.00 Oct 29, 2023 02:57 PM [facility] BASIC METABOLIC PANEL (fasting) Specimen Type: SERUM No comment entered. Ordering Provider: ISAI ADDISON Report Released Date/Time: October 16, 2023 10:28 AM Reporting Lab: [facility] [address] [phone] Performing Lab: [address] [address] UREA NITROGEN 25 mg/dL 7-25 GLUCOSE 106 mg/dL H 65-100 SODIUM 138 mmol/L 135-145 POTASSIUM 4.3 mmol/L 3.5-5.0 CHLORIDE 106 mmol/L 100-110 CO2 24 meq/L 20-30 CREATININE, Serum 1.20 mg/dL 0.50-1.40 eGFR(CKD-EPI 2020) 68 mL/min >60 Oct 29, 2023 02:57 PM [facility] [place] [facility] LIPID PANEL FASTING Specimen Type: SERUM No comment entered. Ordering Provider: ISAI ADDISON Report Released Date/Time: October 16, 2023 10:28 AM Reporting Lab: [facility] [place] [facility] [address] [phone] Performing Lab: [facility] [address] [address] CHOLESTEROL 200 mg/dL H TRIGLYCERIDE 197 mg/dL H 0-150 LDL calculated 107 mg/dL 0-129 CHOL/HDL 3.7 HDL CHOLESTEROL 54 mg/dL 40-60 Social History: Smoking Status (Most current) and Tobacco Use (All prior to encounter date) This section includes the most current, and the historical, smoking and tobacco- related health factors from the [place] facility where the Encounter took place. Current Smoking Status This section includes the most current smoking, or tobacco-related health factor, from the [place] facility where the Encounter took place. Date/Time Current Smoking Status Comment [facility] Oct 29, 2023 02:00 PM VA[facility]ACCO [facility] Tobacco Use History This section includes a history of the smoking, or tobacco-related health factors, that were collected on or before the date of the Encounter. The data comes from the [place] facility where the Encounter took place. Date/Time Smoking Status/Tobac co Use Comment Facility October 16, 2022 02:00 PM VA-TOBACCO NEVER USED [place] [facility] [place] [facility] Nov 13, 2019 01:28 PM VA-TOBACCO NEVER USED [place] [facility] [place] [facility] May 23, 2018 03:31 PM VA-TOBACCO NEVER USED [facility] [place] [facility] Nov 22, 2017 02:56 PM LIFETIME NON-TOBACCO USER [facility] [place] [facility] Nov 05, 2016 02:50 PM LIFETIME NON-TOBACCO USER [facility] [place] [facility] Aug 12, 2015 03:21 PM QUIT TOBACCO USE > 7 YEARS AGO quit 40 years ago [facility] [place] [facility] Mar 19, 2012 11:16 AM LIFETIME NON-TOBACCO USER [place] [facility] [place] [facility] Advance Directives: All historical and current Section Date Range: From patient's date of to the date document was created. This section includes ALL of a patient's completed or amended [place] Advance and Rescinded Directives. The entries below indicate that a directive exists for the patient, but an actual copy is not included with this document. The data comes from all [place] facilities. Date Advance Directives Provider Source Jan 22, 2012 ADVANCE DIRECTIVE DISCUSSION MIGUEL CEE [employer] [facility] Nov 07, 2009 ADVANCE DIRECTIVE DISCUSSION EMANI WINSTON [facility] Encounter Notes: All associated encounter notes This section contains the clinical notes associated to the Encounter. Date/Time Encounter Note(s) Provider Source Nov 15, 2023 06:09 AM PHARMACY NOTE: LOCAL TITLE: PHARMACY CUSTOMER CARE MEDICATION RENEWAL STANDARD TITLE: PHARMACY NOTE DATE OF NOTE: NOV 15, 2023@06:09 ENTRY DATE: NOV 15, 2023@06:10:03 AUTHOR: LISE JIN EXP COSIGNER: URGENCY: STATUS: COMPLETED Date: Oct Division: [facility] referred by Pharmacy Call Center for medication renewal: Non-controlled/maintenance medication Medications requested: [id number] HYDROCHLOROTHIAZIDE 25MG TAB Patient has 3 days of medication remaining, please alert outpatient pharmacy when order is placed so it can be expedited Defer to primary care provider To be mailed . Please review and renew if appropriate. *This note was generated by [facility] Pharm[facility] Customer Care. If you have any questions or need assistance, do not contact this author. Please refer all questions to your local, on-site pharmacy departments. /gin/ LISE JIN CPhT [facility] [place], [place]/Pharmacy Customer Care Signed: 11/15/2023 06:10 Receipt Acknowledged By: 11/15/2023 16:55 /es/ ISAI ADDISON D.O. PHYSICIAN 11/15/2023 09:16 /es/ MAKAYLA SOLO REGISTERED NURSE for LISE MARTIN [place] [facility]
--- OUTSIDE RECORDS SUMMARY | 2024-07-16 12:38 | XMS_ITS | Continuity of Care Document ---
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 It does not include entries that were removed or entered in error. Problem Status Onset Date Problem Type Date of Resolution Comments Source Allergic rhinitis Active Condition [place] [facility] [place] [facility] Allergic rhinitis due to other allergen (ICD-9-CM 477.8) Active Condition [facility] Anxiety * (ICD-9-CM 300.00/300.09) Active Condition [place] [facility] [place] [facility] Benign essential hypertension (SNOMED CT 3084931) [facility] Benign hypertension Active [facility] Chronic Back Pain (ICD-9-CM 724.5) Active Condition [facility] Chronic Low Back Pain Active Condition [facility] Degeneration of intervertebral disc (ICD-9-CM 722.6) Active Condition [facility] Essential Hypertension (ICD-9-CM 401.9) Active Condition [facility] Generalized Anxiety Disorder * (ICD-9-CM 300.02) Active Condition [facility] Hypercholesterolemia (SNOMED CT 97387565) Active Condition [facility] Hypertension Active Condition [facility] Low back pain (SNOMED CT 263843296) Active Condition Jul 14, 2024 Entered By: WILLIAM ADDISON Comment: 4 back surgeries, dorsal stimulator, has seen [facility]- requested referral for [place] clinic in [place]- placed SCI consult [facility] [place] [facility] Murmur * (ICD-9-CM 785.2) Active Condition [facility] Screening for Malignant Neoplasms of colon (ICD-9-CM V76.51) Active Condition [facility] Sleep apnea Active Condition [facility] Unspecified deficiency anemia (ICD-9-CM 281.9) Active Condition [facility] POSTLAMINECT SYND-LUMBAR Inactive Condition [facility] Diagnosis: ICD-10-CM G47.30 Sleep apnea, unspecified Active Diagnosis [facility] Diagnosis: ICD-10-CM M54.50 Low back pain, unspecified Active Diagnosis [facility] Medications Combined list of outpatient medications from Department of Defense and [facility] Affairs facilities.Medications provided include 1) outpatient medications from the last 15 months, and 2) patient-reported medications. Medication Details Route Status Patient Instructions Prescription Expires Prescription Number Last Dispense Date Ordering Provider Order Date Order Qty Source AMLODIPINE BESYLATE 10MG TAB TAKE ONE TABLET BY MOUTH ONCE DAILY FOR BLOOD PRESSURE /HEART, DO NOT TAKE WITH GRAPEFRU IT JUICE ORAL ACTIVE 05/15/2025 [id number] FURCOLO,T CLAY 2023 90 [facility] [place] [place] 80MG TAB TAKE ONE-HALF TABLET BY MOUTH EVERY DAY FOR CHOLESTE ROL ORAL ACTIVE 10/09/2024 [id number] FURCOLO,T CLAY 2023 45 [facility] [place] [place] 80MG TAB TAKE ONE-HALF TABLET BY MOUTH EVERY DAY FOR CHOLESTE ROL ORAL DISCONT INUED 10/17/2023 [id number] LIZETH CORTES AMQUYNH JAWED 2022 45 [facility] BUSPIRONE HCL 10MG TAB TAKE ONE TABLET BY MOUTH THREE TIMES A DAY ORAL ACTIVE ZOFIASADIE PARISIA G 2009 [facility] DICYCLOMINE HCL 10MG CAP TAKE 1 CAPSULE BY MOUTH THREE TIMES A DAY NEEDED ORAL ACTIVE ZOFIASADIE PARISIA G 2009 [facility] DIPHENHYDRA MINE CAP,ORAL TAKE DOSAGE NOT KNOWN BY PATIENT BY MOUTH PRN ORAL ACTIVE GAGAN AVILA 2011 [facility] ESCITALOPRA M OXALATE 20MG TAB TAKE ONE-HALF TABLET BY MOUTH EVERY DAY ORAL ACTIVE GAGAN AVILA HNETTA 2009 [facility] GABAPENTIN 100MG CAP TAKE ONE CAPSULE BY MOUTH THREE TIMES A DAY FOR NERVE PAIN ORAL ACTIVE 05/15/2025 [id number] FURCOLO,T CLAY 2023 270 [facility] HYDROCHLORO THIAZIDE 25MG TAB TAKE ONE TABLET BY MOUTH ONCE DAILY TO PREVENT FLUID/CO NTROL BLOOD PRESSURE ORAL ACTIVE 11/15/2024 [id number] FURCOLO,T CLAY 2023 90 [facility] LISINOPRIL 40MG TAB TAKE ONE TABLET BY MOUTH EVERY DAY TO CONTROL BLOOD PRESSURE ORAL ACTIVE 10/09/2024 [id number] FURCOLO,T CLAY 2023 90 [facility] LISINOPRIL 40MG TAB TAKE ONE TABLET BY MOUTH EVERY DAY TO CONTROL BLOOD PRESSURE ORAL DISCONT INUED 05/02/2024 [id number] LIZETH CORTES AMMED JAWED 2022 90 [facility] MELOXICAM 15MG TAB TAKE ONE-HALF TABLET BY MOUTH ONCE DAILY FOR PAIN ORAL 05/02/2024 [id number] LIZETH CORTES AMMED JAWED 2022 15 [facility] METOPROLOL SUCCINATE 100MG TAB,SA TAKE ONE TABLET BY MOUTH ONCE DAILY ORAL ACTIVE LIZETH CORTES AMQUYNH JAWED 2017 [facility] SPIRONOLACT ONE 25MG TAB TAKE ONE TABLET BY MOUTH ONCE DAILY ORAL ACTIVE FURCOLO,T CLAY 2023 [facility] Allergies, Adverse Reactions, Alerts Combined list of allergies from Department of Defense and Veterans Affairs facilities. It does not include entries that were removed or entered in error. Substance Category Reaction Severity Reaction type Status Date Reported Comments Source MORPHINE Propensity to adverse reactions to drug (finding) active 11/08/2009 [facility] Immunizations Combined list of available immunizations from the Department of Defense and Veterans Affairs facilities. Immunization Series Date Given Administered By Site Reaction Lot Number CVX Code Drug Safety Instructor Status Comments Source TDAP 2023 FITO CARDONA LEFT DELTO ID [id number] 115 complet ed [facility] INFLUENZA, UNSPECIFIED FORMULATION 2023 88 complet ed [facility] INFLUENZA, UNSPECIFIED FORMULATION 2022 88 complet ed [facility] ZOSTER RECOMBINANT 2 2019 187 complet ed [facility] [place] ZOSTER RECOMBINANT 1 2018 187 complet ed [facility] [place] INFLUENZA, SEASONAL, INJECTABLE 2018 141 complet ed [facility] INFLUENZA, SEASONAL, INJECTABLE 2017 141 complet ed [facility] INFLUENZA, SEASONAL, INJECTABLE 2016 141 complet ed [facility] FLU,3 YRS (HISTORICAL) 2015 88 complet ed had at outside clinic [facility] FLU,3 YRS (HISTORICAL) 2014 88 complet ed outside provider [facility] FLU,3 YRS (HISTORICAL) 2013 88 complet ed outside provider [facility] DTAP, UNSPECIFIED FORMULATION 2013 107 complet ed Site: Left Deltoid [facility] FLU,3 YRS (HISTORICAL) 2012 88 complet ed Site: Left Deltoid [facility] FLU,3 YRS (HISTORICAL) 2011 88 complet ed [facility] INFLUENZA, UNSPECIFIED FORMULATION 2011 88 complet ed [facility] TD(ADULT) UNSPECIFIED FORMULATION 2011 139 complet ed [facility] FLU,3 YRS (HISTORICAL) 2010 88 complet ed [facility] TD(ADULT) UNSPECIFIED FORMULATION 2010 139 complet ed [facility] INFLUENZA, UNSPECIFIED FORMULATION 2009 88 complet ed [facility] INFLUENZA, UNSPECIFIED FORMULATION 2008 88 complet ed [facility] INFLUENZA, UNSPECIFIED FORMULATION 2008 88 complet ed [facility] INFLUENZA, UNSPECIFIED FORMULATION 2004 88 complet ed [facility] INFLUENZA, UNSPECIFIED FORMULATION 2004 88 complet ed [facility] INFLUENZA, UNSPECIFIED FORMULATION 2002 88 complet ed [facility] Results Combined list of recent chemistry, hematology and other laboratory results from Department of Defense and Veterans Affairs, ranging from 15 months to all on record, depending upon the facility. Order Name Results Value Reference Range Date Interpretation Specimen Comments Source LIPID PANEL FASTING CHOLESTEROL [MASS/VOLUM E] IN SERUM OR PLASMA 211 mg/dL 05/14 H Specimen Type: SERUM No comment entered. Ordering Provider: WILLIAM ADDISON Report Released Date/Time: Oct 29, 2023 02:42 PM Reporting Lab: [facility] [address] Performing Lab: [facility] [address] [facility] [address] [facility] LIPID PANEL FASTING TRIGLYCERID E [MASS/VOLUM E] IN SERUM OR PLASMA 203 mg/dL 0 - 150 05/14 H Specimen Type: SERUM No comment entered. Ordering Provider: WILLIAM ADDISON Report Released Date/Time: Oct 29, 2023 02:42 PM Reporting Lab: [facility] [address] [facility] [address] Performing Lab: [facility] [address] [facility] [address] [facility] LIPID PANEL FASTING CHOLESTEROL IN LDL [MASS/VOLUM E] IN SERUM OR PLASMA BY CALCULATION 122 mg/dL 0 - 129 05/14 Specimen Type: SERUM No comment entered. Ordering Provider: WILLIAM ADDISON Report Released Date/Time: Oct 29, 2023 02:42 PM Reporting Lab: [address] [address] Performing Lab: [facility] [facility] [address] [facility] [address] [facility] LIPID PANEL FASTING CHOLESTEROL .TOTAL/CHOL ESTEROL IN HDL [MASS RATIO] IN SERUM OR PLASMA 4.4 05/14 Specimen Type: SERUM No comment entered. Ordering Provider: WILLIAM ADDISON Report Released Date/Time: Oct 29, 2023 02:42 PM Reporting Lab: [facility] [place] [facility] [address] [facility] [address] Performing Lab: [facility] [address] [facility] [address] [facility] LIPID PANEL FASTING CHOLESTEROL IN HDL [MASS/VOLUM E] IN SERUM OR PLASMA 48 mg/dL 40 - 60 05/14 Specimen Type: SERUM No comment entered. Ordering Provider: WILLIAM ADDISON Report Released Date/Time: Oct 29, 2023 02:42 PM Reporting Lab: [facility] [place] [facility] [address] [facility] [address] Performing Lab: [facility] [place] [facility] [address] [facility] [address] [facility] LIVER FUNCTION PROTEIN [MASS/VOLUM E] IN SERUM OR PLASMA 7.7 g/dL 6.0 - 8.3 05/14 Specimen Type: SERUM No comment entered. Ordering Provider: WILLIAM ADDISON Report Released Date/Time: Oct 29, 2023 02:42 PM Reporting Lab: [facility] [place] [facility] [address] [facility] [address] Performing Lab: [facility] [place] [facility] [address] [facility] [address] [facility] LIVER FUNCTION ALBUMIN [MASS/VOLUM E] IN SERUM OR PLASMA 4.3 g/dL 3.5 - 5.0 05/14 Specimen Type: SERUM No comment entered. Ordering Provider: WILLIAM ADDISON Report Released Date/Time: Oct 29, 2023 02:42 PM Reporting Lab: [facility] [place] [facility] [address] [facility] [address] Performing Lab: [facility] [place] [facility] [address] [facility] [address] [facility] [place] [facility] LIVER FUNCTION ALKALINE PHOSPHATASE [ENZYMATIC ACTIVITY/VO LUME] IN SERUM OR PLASMA 115 U/L 40 - 150 05/14 Specimen Type: SERUM No comment entered. Ordering Provider: WILLIAM ADDISON Report Released Date/Time: Oct 29, 2023 02:42 PM Reporting Lab: [facility] [place] [facility] [address] [facility] [address] Performing Lab: [facility] [place] [facility] [address] [facility] [address] [facility] [facility] LIVER FUNCTION ASPARTATE AMINOTRANSF ERASE [ENZYMATIC ACTIVITY/VO LUME] IN SERUM OR PLASMA 25 U/L 5 - 34 05/14 Specimen Type: SERUM No comment entered. Ordering Provider: WILLIAM ADDISON Report Released Date/Time: Oct 29, 2023 02:42 PM Reporting Lab: [facility] [place] [facility] [address] [facility] [address] Performing Lab: [facility] [place] [place] [facility] [address] [facility] [address] [facility] [place] [facility] LIVER FUNCTION ALANINE AMINOTRANSF ERASE [ENZYMATIC ACTIVITY/VO LUME] IN SERUM OR PLASMA 29 U/L 05/14 Specimen Type: SERUM No comment entered. Ordering Provider: WILLIAM ADDISON Report Released Date/Time: Oct 29, 2023 02:42 PM Reporting Lab: [facility] [place] [facility] [address] [facility] [address] Performing Lab: [facility] [place] [facility] [address] [facility] [address] [facility] [place] [facility] LIVER FUNCTION BILIRUBIN.T OTAL [MASS/VOLUM E] IN SERUM OR PLASMA 0.6 mg/dL 0.2 - 1.2 05/14 Specimen Type: SERUM No comment entered. Ordering Provider: WILLIAM ADDISON Report Released Date/Time: Oct 29, 2023 02:42 PM Reporting Lab: [place] [facility] [place] [facility] [address] [facility] [address] Performing Lab: [facility] [place] [facility] [address] [facility] [address] [facility] [place] [facility] BASIC METABOLIC PANEL (fasting) UREA NITROGEN [MASS/VOLUM E] IN SERUM OR PLASMA 25 mg/dL 7 - 25 05/14 Specimen Type: SERUM No comment entered. Ordering Provider: WILLIAM ADDISON Report Released Date/Time: Oct 29, 2023 02:42 PM Reporting Lab: [facility] [place] [place] [facility] [address] [facility] [address] Performing Lab: [place] [place] [address] [address] [facility] BASIC METABOLIC PANEL (fasting) GLUCOSE [MASS/VOLUM E] IN SERUM OR PLASMA 106 mg/dL 65 - 100 05/14 H Specimen Type: SERUM No comment entered. Ordering Provider: WILLIAM ADDISON Report Released Date/Time: Oct 29, 2023 02:42 PM Reporting Lab: [facility] [place] [place] [address] [address] Performing Lab: [facility] [place] [facility] [address] [facility] [address] [facility] BASIC METABOLIC PANEL (fasting) SODIUM [MOLES/VOLU ME] IN SERUM OR PLASMA 138 mmol/L 135 - 145 05/14 Specimen Type: SERUM No comment entered. Ordering Provider: WILLIAM ADDISON Report Released Date/Time: Oct 29, 2023 02:42 PM Reporting Lab: [place] [facility] [place] [facility] [address] [facility] [address] Performing Lab: [place] [facility] [place] [address] [address] [facility] [place] [facility] BASIC METABOLIC PANEL (fasting) POTASSIUM [MOLES/VOLU ME] IN SERUM OR PLASMA 4.6 mmol/L 3.5 - 5.0 05/14 Specimen Type: SERUM No comment entered. Ordering Provider: WILLIAM ADDISON Report Released Date/Time: Oct 29, 2023 02:42 PM Reporting Lab: [facility] [place] [facility] [address] [facility] [address] Performing Lab: [facility] [place] [facility] [address] [facility] [address] [facility] [place] [facility] BASIC METABOLIC PANEL (fasting) CHLORIDE [MOLES/VOLU ME] IN SERUM OR PLASMA 105 mmol/L 100 - 110 05/14 Specimen Type: SERUM No comment entered. Ordering Provider: WILLIAM ADDISON Report Released Date/Time: Oct 29, 2023 02:42 PM Reporting Lab: [facility] [place] [facility] [address] [facility] [address] Performing Lab: [facility] [address] [facility] BASIC METABOLIC PANEL (fasting) CARBON DIOXIDE, TOTAL [MOLES/VOLU ME] IN SERUM OR PLASMA 24 meq/L 20 - 30 05/14 Specimen Type: SERUM No comment entered. Ordering Provider: WILLIAM ADDISON Report Released Date/Time: Oct 29, 2023 02:42 PM Reporting Lab: [facility] [place] [facility] [address] [facility] [address] Performing Lab: [facility] [address] [address] [facility] BASIC METABOLIC PANEL (fasting) CREATININE [MASS/VOLUM E] IN SERUM OR PLASMA 1.19 mg/dL 0.50 - 1.40 05/14 Specimen Type: SERUM No comment entered. Ordering Provider: WILLIAM ADDISON Report Released Date/Time: Oct 29, 2023 02:42 PM Reporting Lab: [facility] [place] [facility] [address] [facility] [address] Performing Lab: [facility] [address] [address] [facility] [place] [facility] BASIC METABOLIC PANEL (fasting) GLOMERULAR FILTRATION RATE/1.73 SQ M.PREDICTED [VOLUME RATE/AREA] IN SERUM, PLASMA OR BLOOD BY CREATININE- BASED FORMULA (CKD-EPI 2020) 69 mL/min 60 05/14 Specimen Type: SERUM No comment entered. Ordering Provider: WILLIAM ADDISON Report Released Date/Time: Oct 29, 2023 02:42 PM Reporting Lab: [facility] [place] [address] [address] Performing Lab: [place] [facility] [place] [address] [address] [facility] PSA PROSTATE SPECIFIC AG [MASS/VOLUM E] IN SERUM OR PLASMA 0.63 ng/mL 0.00 - 4.00 10/28 Specimen Type: SERUM No comment entered. Ordering Provider: WILLIAM ADDISON Report Released Date/Time: October 16, 2023 10:28 AM Reporting Lab: [facility] [address] Performing Lab: [facility] [address] [facility] LIPID PANEL FASTING CHOLESTEROL [MASS/VOLUM E] IN SERUM OR PLASMA 200 mg/dL 10/28 H Specimen Type: SERUM No comment entered. Ordering Provider: WILLIAM ADDISON Report Released Date/Time: October 16, 2023 10:28 AM Reporting Lab: [facility] [place] [address] [address] Performing Lab: [facility] [address] [address] [facility] LIPID PANEL FASTING TRIGLYCERID E [MASS/VOLUM E] IN SERUM OR PLASMA 197 mg/dL 0 - 150 10/28 H Specimen Type: SERUM No comment entered. Ordering Provider: IWLLIAM ADDISON Report Released Date/Time: October 16, 2023 10:28 AM Reporting Lab: [facility] W[facility]N [address] [address] Performing Lab: [facility] [place] [facility] [address] [facility] [address] [facility] [place] [facility] LIPID PANEL FASTING CHOLESTEROL IN LDL [MASS/VOLUM E] IN SERUM OR PLASMA BY CALCULATION 107 mg/dL 0 - 129 10/28 Specimen Type: SERUM No comment entered. Ordering Provider: WILLIAM ADDISON Report Released Date/Time: October 16, 2023 10:28 AM Reporting Lab: [place] [facility] [place] [facility] [address] [facility] [address] Performing Lab: [facility] [place] [facility] [address] [facility] [address] [facility] [place] [facility] LIPID PANEL FASTING CHOLESTEROL .TOTAL/CHOL ESTEROL IN HDL [MASS RATIO] IN SERUM OR PLASMA 3.7 10/28 Specimen Type: SERUM No comment entered. Ordering Provider: WILLIAM ADDISON Report Released Date/Time: October 16, 2023 10:28 AM Reporting Lab: [facility] [place] [facility] [address] [facility] [address] Performing Lab: [facility] [place] [facility] [address] [facility] [address] [facility] [place] [facility] LIPID PANEL FASTING CHOLESTEROL IN HDL [MASS/VOLUM E] IN SERUM OR PLASMA 54 mg/dL 40 - 60 10/28 Specimen Type: SERUM No comment entered. Ordering Provider: WILLIAM ADDISON Report Released Date/Time: October 16, 2023 10:28 AM Reporting Lab: [facility] [place] [facility] [address] [facility] [address] Performing Lab: [facility] [place] [facility] [address] [facility] [address] [facility] [place] [facility] BASIC METABOLIC PANEL (fasting) UREA NITROGEN [MASS/VOLUM E] IN SERUM OR PLASMA 25 mg/dL 7 - 25 10/28 Specimen Type: SERUM No comment entered. Ordering Provider: WILLIAM ADDISON Report Released Date/Time: October 16, 2023 10:28 AM Reporting Lab: [place] [facility] [place] [facility] [address] [facility] [address] Performing Lab: [facility]CR[facility]ITALTRN [facility] [address] [facility] [address] [facility]CR[facility]TRN [facility] BASIC METABOLIC PANEL (fasting) GLUCOSE [MASS/VOLUM E] IN SERUM OR PLASMA 106 mg/dL 65 - 100 10/28 H Specimen Type: SERUM No comment entered. Ordering Provider: WILLIAM ADDISON Report Released Date/Time: October 16, 2023 10:28 AM Reporting Lab: [facility]CR[facility]ITALTRN [facility] [address] [facility] [address] Performing Lab: [facility]IACRLAWR[facility]ERN [address] [address] [facility] BASIC METABOLIC PANEL (fasting) SODIUM [MOLES/VOLU ME] IN SERUM OR PLASMA 138 mmol/L 135 - 145 10/28 Specimen Type: SERUM No comment entered. Ordering Provider: WILLIAM ADDISON Report Released Date/Time: October 16, 2023 10:28 AM Reporting Lab: [facility]IACR[facility]ITALTRN [facility] [address] [facility] [address] Performing Lab: [facility]N [facility] [address] [facility]CRLAWR[facility]ERN [facility] BASIC METABOLIC PANEL (fasting) POTASSIUM [MOLES/VOLU ME] IN SERUM OR PLASMA 4.3 mmol/L 3.5 - 5.0 10/28 Specimen Type: SERUM No comment entered. Ordering Provider: WILLIAM ADDISON Report Released Date/Time: October 16, 2023 10:28 AM Reporting Lab: [facility] TRN [address] [address] Performing Lab: [facility] [address] [facility] BASIC METABOLIC PANEL (fasting) CHLORIDE [MOLES/VOLU ME] IN SERUM OR PLASMA 106 mmol/L 100 - 110 10/28 Specimen Type: SERUM No comment entered. Ordering Provider: WILLIAM ADDISON Report Released Date/Time: October 16, 2023 10:28 AM Reporting Lab: [facility] [place] [facility] [address] [facility] [address] Performing Lab: [facility] [place] [facility] [address] [facility] [id number] [facility] [place] [facility] BASIC METABOLIC PANEL (fasting) CARBON DIOXIDE, TOTAL [MOLES/VOLU ME] IN SERUM OR PLASMA 24 meq/L 20 - 30 10/28 Specimen Type: SERUM No comment entered. Ordering Provider: WILLIAM ADDISON Report Released Date/Time: October 16, 2023 10:28 AM Reporting Lab: [facility] [place] [facility] [address] [facility] [address] Performing Lab: [facility] [address] [facility] BASIC METABOLIC PANEL (fasting) CREATININE [MASS/VOLUM E] IN SERUM OR PLASMA 1.20 mg/dL 0.50 - 1.40 10/28 Specimen Type: SERUM No comment entered. Ordering Provider: WILLIAM ADDISON Report Released Date/Time: October 16, 2023 10:28 AM Reporting Lab: [facility] [place] [address] [address] Performing Lab: [facility] [place] [facility] [address] [facility] [address] [facility] BASIC METABOLIC PANEL (fasting) GLOMERULAR FILTRATION RATE/1.73 SQ M.PREDICTED [VOLUME RATE/AREA] IN SERUM, PLASMA OR BLOOD BY CREATININE- BASED FORMULA (CKD-EPI 2020) 68 mL/min 60 10/28 Specimen Type: SERUM No comment entered. Ordering Provider: WILLIAM ADDISON Report Released Date/Time: October 16, 2023 10:28 AM Reporting Lab: [facility] [place] [facility] [address] [facility] [address] Performing Lab: [facility] [place] [address] [address] [facility] LIPID PANEL FASTING CHOLESTEROL [MASS/VOLUM E] IN SERUM OR PLASMA 192 mg/dL 05/02 Specimen Type: SERUM No comment entered. Ordering Provider: RICK CORTES Report Released Date/Time: Apr 12, 2023 03:10 PM Reporting Lab: [facility] [place] [facility] [address] [facility] [address] Performing Lab: [facility] [place] [facility] [address] [facility] [address] [facility] [place] [facility] LIPID PANEL FASTING TRIGLYCERID E [MASS/VOLUM E] IN SERUM OR PLASMA 144 mg/dL 0 - 150 05/02 Specimen Type: SERUM No comment entered. Ordering Provider: RICK CORTES Report Released Date/Time: Apr 12, 2023 03:10 PM Reporting Lab: [facility] [place] [facility] [address] [facility] [address] Performing Lab: [facility] [place] [facility] [address] [facility] [address] [facility] [place] [facility] LIPID PANEL FASTING CHOLESTEROL IN LDL [MASS/VOLUM E] IN SERUM OR PLASMA BY CALCULATION 115 mg/dL 0 - 129 05/02 Specimen Type: SERUM No comment entered. Ordering Provider: RICK CORTES Report Released Date/Time: Apr 12, 2023 03:10 PM Reporting Lab: [facility] [place] [facility] [address] [facility] [address] Performing Lab: [facility] [place] [facility] [address] [facility] [address] [facility] [place] [facility] LIPID PANEL FASTING CHOLESTEROL .TOTAL/CHOL ESTEROL IN HDL [MASS RATIO] IN SERUM OR PLASMA 4.0 05/02 Specimen Type: SERUM No comment entered. Ordering Provider: RICK CORTES Report Released Date/Time: Apr 12, 2023 03:10 PM Reporting Lab: [facility] [place] [facility] [address] [facility] [address] Performing Lab: [facility] [place] [facility] [address] [facility] [address] [facility] [place] [facility] LIPID PANEL FASTING CHOLESTEROL IN HDL [MASS/VOLUM E] IN SERUM OR PLASMA 48 mg/dL 40 - 60 05/02 Specimen Type: SERUM No comment entered. Ordering Provider: RICK CORTES Report Released Date/Time: Apr 12, 2023 03:10 PM Reporting Lab: [facility] [place] [facility] [address] [facility] [address] Performing Lab: [facility] [facility] [address] [facility] [address] [facility] [place] [facility] BASIC METABOLIC PANEL (fasting) UREA NITROGEN [MASS/VOLUM E] IN SERUM OR PLASMA 24 mg/dL 7 - 25 05/02 Specimen Type: SERUM No comment entered. Ordering Provider: RICK CORTES Report Released Date/Time: Apr 12, 2023 03:10 PM Reporting Lab: [facility] [place] [address] [address] Performing Lab: [facility] [place] [address] [address] [facility] [place] [facility] BASIC METABOLIC PANEL (fasting) GLUCOSE [MASS/VOLUM E] IN SERUM OR PLASMA 102 mg/dL 65 - 100 05/02 H Specimen Type: SERUM No comment entered. Ordering Provider: RICK CORTES Report Released Date/Time: Apr 12, 2023 03:10 PM Reporting Lab: [facility] [place] [address] [address] Performing Lab: [facility] [place] [address] [address] [facility] [place] [facility] BASIC METABOLIC PANEL (fasting) SODIUM [MOLES/VOLU ME] IN SERUM OR PLASMA 140 mmol/L 135 - 145 05/02 Specimen Type: SERUM No comment entered. Ordering Provider: RICK CORTES Report Released Date/Time: Apr 12, 2023 03:10 PM Reporting Lab: [facility] [place] [address] [address] Performing Lab: [facility] [place] [address] [address] [facility] [place] [facility] BASIC METABOLIC PANEL (fasting) POTASSIUM [MOLES/VOLU ME] IN SERUM OR PLASMA 4.8 mmol/L 3.5 - 5.0 05/02 Specimen Type: SERUM No comment entered. Ordering Provider: RICK CORTES Report Released Date/Time: Apr 12, 2023 03:10 PM Reporting Lab: [facility] [place] [facility] [address] [facility] [address] Performing Lab: [facility] [place] [facility] [address] [facility] [address] [facility] [place] [facility] BASIC METABOLIC PANEL (fasting) CHLORIDE [MOLES/VOLU ME] IN SERUM OR PLASMA 104 mmol/L 100 - 110 05/02 Specimen Type: SERUM No comment entered. Ordering Provider: RICK CORTES Report Released Date/Time: Apr 12, 2023 03:10 PM Reporting Lab: [facility] [place] [facility] [address] [facility] [address] Performing Lab: [facility] [place] [facility] [address] [facility] [address] [facility] [place] [facility] BASIC METABOLIC PANEL (fasting) CARBON DIOXIDE, TOTAL [MOLES/VOLU ME] IN SERUM OR PLASMA 26 meq/L 20 - 30 05/02 Specimen Type: SERUM No comment entered. Ordering Provider: RICK CORTES Report Released Date/Time: Apr 12, 2023 03:10 PM Reporting Lab: [facility] [place] [facility] [address] [facility] [address] Performing Lab: [facility] [place] [facility] [address] [facility] [address] [facility] [place] [facility] BASIC METABOLIC PANEL (fasting) CREATININE [MASS/VOLUM E] IN SERUM OR PLASMA 1.23 mg/dL 0.50 - 1.40 05/02 Specimen Type: SERUM No comment entered. Ordering Provider: RICK CORTES Report Released Date/Time: Apr 12, 2023 03:10 PM Reporting Lab: [facility] [place] [facility] [address] [facility] [address] Performing Lab: [facility] [place] [facility] [address] [facility] [address] [facility] [place] [facility] BASIC METABOLIC PANEL (fasting) GLOMERULAR FILTRATION RATE/1.73 SQ M.PREDICTED [VOLUME RATE/AREA] IN SERUM, PLASMA OR BLOOD BY CREATININE- BASED FORMULA (CKD-EPI 2020) 66 mL/min 60 05/02 Specimen Type: SERUM No comment entered. Ordering Provider: RICK CORTES Report Released Date/Time: Apr 12, 2023 03:10 PM Reporting Lab: [facility] [address] [facility] [address] Performing Lab: [facility] [address] [facility] [address] [facility] BASIC METABOLIC PANEL (fasting) UREA NITROGEN [MASS/VOLUM E] IN SERUM OR PLASMA 19 mg/dL 7 - 25 10/10 Specimen Type: SERUM No comment entered. Ordering Provider: RICK CORTES Report Released Date/Time: Aug 16, 2022 09:42 AM Reporting Lab: [facility] [place] [facility] [address] [facility] [address] Performing Lab: [facility] [address] [facility] [address] [facility] BASIC METABOLIC PANEL (fasting) GLUCOSE [MASS/VOLUM E] IN SERUM OR PLASMA 98 mg/dL 65 - 100 10/10 Specimen Type: SERUM No comment entered. Ordering Provider: RCIK CORTES Report Released Date/Time: Aug 16, 2022 09:42 AM Reporting Lab: [facility] [facility] [address] [facility] [address] Performing Lab: [facility] [address] [facility] [address] [facility] BASIC METABOLIC PANEL (fasting) SODIUM [MOLES/VOLU ME] IN SERUM OR PLASMA 138 mmol/L 135 - 145 10/10 Specimen Type: SERUM No comment entered. Ordering Provider: RICK CORTES Report Released Date/Time: Aug 16, 2022 09:42 AM Reporting Lab: [facility] [place] [facility] [address] [facility] [address] Performing Lab: [facility] [place] [facility] [address] [facility] [address] [facility] [place] [facility] BASIC METABOLIC PANEL (fasting) POTASSIUM [MOLES/VOLU ME] IN SERUM OR PLASMA 4.5 mmol/L 3.5 - 5.0 10/10 Specimen Type: SERUM No comment entered. Ordering Provider: RICK CORTES Report Released Date/Time: Aug 16, 2022 09:42 AM Reporting Lab: [facility] [place] [facility] [address] [facility] [address] Performing Lab: [facility] [facility] [address] [facility] [address] [facility] [place] [facility] BASIC METABOLIC PANEL (fasting) CHLORIDE [MOLES/VOLU ME] IN SERUM OR PLASMA 105 mmol/L 100 - 110 10/10 Specimen Type: SERUM No comment entered. Ordering Provider: RICK CORTES Report Released Date/Time: Aug 16, 2022 09:42 AM Reporting Lab: [facility] [place] [address] [address] Performing Lab: [facility] [place] [facility] [address] [facility] [address] [facility] [place] [facility] BASIC METABOLIC PANEL (fasting) CARBON DIOXIDE, TOTAL [MOLES/VOLU ME] IN SERUM OR PLASMA 23 meq/L 20 - 30 10/10 Specimen Type: SERUM No comment entered. Ordering Provider: RICK CORTES Report Released Date/Time: Aug 16, 2022 09:42 AM Reporting Lab: [facility] [place] [facility] [address] [facility] [address] Performing Lab: [facility] [place] [facility] [address] [facility] [address] [facility] BASIC METABOLIC PANEL (fasting) CREATININE [MASS/VOLUM E] IN SERUM OR PLASMA 1.03 mg/dL 0.50 - 1.40 10/10 Specimen Type: SERUM No comment entered. Ordering Provider: RICK CORTES Report Released Date/Time: Aug 16, 2022 09:42 AM Reporting Lab: [facility] [place] [facility] [address] [facility] [address] Performing Lab: [facility] [address] [facility] [address] [facility] BASIC METABOLIC PANEL (fasting) GLOMERULAR FILTRATION RATE/1.73 SQ M.PREDICTED [VOLUME RATE/AREA] IN SERUM, PLASMA OR BLOOD BY CREATININE- BASED FORMULA (CKD-EPI) 82 mL/min 60 10/10 Specimen Type: SERUM No comment entered. Ordering Provider: RICK CORTES Report Released Date/Time: Aug 16, 2022 09:42 AM Reporting Lab: [facility] [place] [place] [facility] [address] [facility] [address] Performing Lab: [facility] [address] [facility] [address] [facility] LIPID PANEL FASTING CHOLESTEROL [MASS/VOLUM E] IN SERUM OR PLASMA 201 mg/dL 7 - 199 10/10 H Specimen Type: SERUM No comment entered. Ordering Provider: RICK CORTES Report Released Date/Time: Aug 16, 2022 09:42 AM Reporting Lab: [facility] [place] [facility] [address] [facility] [address] Performing Lab: [facility] [address] [facility] [address] [facility] LIPID PANEL FASTING TRIGLYCERID E [MASS/VOLUM E] IN SERUM OR PLASMA 191 mg/dL 0 - 150 10/10 H Specimen Type: SERUM No comment entered. Ordering Provider: RICK CORTES Report Released Date/Time: Aug 16, 2022 09:42 AM Reporting Lab: [facility] [place] [facility] [address] [facility] [address] Performing Lab: [facility] [place] [facility] [address] [facility] [address] [facility] [place] [facility] LIPID PANEL FASTING CHOLESTEROL IN LDL [MASS/VOLUM E] IN SERUM OR PLASMA BY CALCULATION 107 mg/dL 0 - 129 10/10 Specimen Type: SERUM No comment entered. Ordering Provider: RICK CORTES Report Released Date/Time: Aug 16, 2022 09:42 AM Reporting Lab: [facility] [place] [facility] [address] [facility] [address] Performing Lab: [facility] [place] [facility] [address] [facility] [address] [facility] [place] [facility] LIPID PANEL FASTING CHOLESTEROL .TOTAL/CHOL ESTEROL IN HDL [MASS RATIO] IN SERUM OR PLASMA 3.6 10/10 Specimen Type: SERUM No comment entered. Ordering Provider: RICK CORTES Report Released Date/Time: Aug 16, 2022 09:42 AM Reporting Lab: [facility] [place] [facility] [address] [facility] [address] Performing Lab: [facility] [place] [facility] [address] [facility] [address] [facility] [place] [facility] LIPID PANEL FASTING CHOLESTEROL IN HDL [MASS/VOLUM E] IN SERUM OR PLASMA 56 mg/dL 40 - 60 10/10 Specimen Type: SERUM No comment entered. Ordering Provider: RICK CORTES Report Released Date/Time: Aug 16, 2022 09:42 AM Reporting Lab: [facility] [place] [facility] [address] [facility] [address] Performing Lab: [facility] [place] [facility] [address] [facility] [address] [facility] [place] [facility] Vital Signs Combined list of inpatient and outpatient Vital Signs from Department of Defense and Veterans Affairs, ranging from 12 months to all on record, depending upon the facility. Vital Sign Value Date Comments Source SYSTOLIC BLOOD PRESSURE 128 05/14/20 24 13:52:08 [facility] [place] [facility] DIASTOLIC BLOOD PRESSURE 82 024 13:52:08 [facility] [place] PULSE OXIMETRY 96 05/14/2024 13:52:08 [facility] WEIGHT 205 05/14/2024 13:52:08 [facility] BMI 28 kg/m2 05/14/2024 13:52:08 [facility] PAIN 4 05/14/2024 13:52:08 [facility] TEMPERATURE 98.3 05/14/2024 13:52:08 [facility] PULSE 76 05/14/2024 13:52:08 [facility] RESPIRATION 16 05/14/2024 13:52:08 [facility] [place] [facility] SYSTOLIC BLOOD PRESSURE 109 10/29/19 13:50:48 [facility] [place] [facility] DIASTOLIC BLOOD PRESSURE 77 024 13:50:48 [facility] [place] [facility] PULSE OXIMETRY 96 10/29/2023 13:50:48 [facility] [place] WEIGHT 200 10/29/2023 13:50:48 [facility] BMI 27 kg/m2 10/29/2023 13:50:48 [facility] PAIN 3 10/29/2023 13:50:48 [facility] TEMPERATURE 98.2 10/29/2023 13:50:48 [facility] PULSE 81 10/29/2023 13:50:48 [facility] RESPIRATION 16 10/29/2023 13:50:48 [facility] [place] [facility] Encounters Combined list of: 1) Encounters from Department of Veterans Affairs facilities going backup to the last 18 months, not all VA inpatient encounters are included; 2) Encounters from the Department of Defense facilities going backup to 280 months. Location Location Details Encounter Type Encounter Number Reason For Visit Attending Provider ADM Date DC Date Status Disposition Source [facility] Encounter [id number] 02/01 [facility] [id number] 04/03 [facility]counter [id number] 04/03 [facility] [id number] 04/23 [facility] OFFICE O/P EST MOD 30-39 MIN [id number] Diagnos is: ICD-10- CM M54.50 Low back pain, unspeci fied AHMED,MOHA MMED JAWED 05/02 [facility] En[facility] [id number] 07/09 [facility] [id number] 10/07 [facility] En[facility] [id number] 10/28 [facility] OFFICE O/P EST MOD 30 MIN [id number] Diagnos is: ICD-10- CM G47.30 Sleep apnea, unspeci fied FURCOLO,TI NA 10/28 [facility] En[facility] [id number] 10/29 [facility] [id number] 11/14 [facility]counter [id number] 04/05 [facility]counter [id number] 04/10 [facility] En[facility] [id number] 05/01 [facility] OFFICE O/P EST MOD 30 MIN [id number] Diagnos is: ICD-10- CM G47.30 Sleep apnea, unspeci fied FURCOLO,TI NA 05/14 [facility] En[facility] [id number] 05/22 [facility] En[facility] [id number] 07/14 [facility] [place] [facility] Social History Combined list of available smoking, tobacco, and other social history from Department of Defense and Veterans Affairs facilities. Social History Type Response Date Comment Source Tobacco smoking status VAIS VA-TOBACCO NEVER USED 10/29/2023 [facility] History of tobacco use VA-TOBACCO NEVER USED 10/16/2022 [facility] History of tobacco use VA-TOBACCO NEVER USED 11/13/2019 [facility] History of tobacco use VA-TOBACCO NEVER USED 05/23/2018 [facility] History of tobacco use LIFETIME NON-TOBACCO USER 11/22/2017 [facility] History of tobacco use LIFETIME NON-TOBACCO USER 11/05/2016 [facility] History of tobacco use QUIT TOBACCO USE > 7 YEARS AGO 08/12/2015 quit 40 years ago [facility] History of tobacco use LIFETIME NON-TOBACCO USER 03/19/2012 [facility] History of tobacco use V7-TOBACCO USE NONE IN > 7 YEARS 01/22/2012 [facility] History of tobacco use V7-LIFETIME NON/TOBACCO USER 11/08/2011 [facility] History of tobacco use V7-TOBACCO USE NONE IN > 7 YEARS 08/01/2010 [facility] History of tobacco use V7-LIFETIME NON/TOBACCO USER 05/04/2010 [facility] History of tobacco use V7-TOBACCO USE NONE IN > 7 YEARS 11/07/2009 [facility] History of tobacco use QUIT TOBACCO >7 YEARS AGO 06/24/2008 [facility] History of tobacco use HF V9 LIFETIME NON-SMOKER 04/16/2005 [facility] History of tobacco use HF V9 LIFETIME NON-SMOKER 10/20/2003 [facility] History of tobacco use HF V9 CURRENT NON-SMOKER 01/15/2003 [facility] Plan of Care List of future care activities from [facility] facilities. Additional future care activities may be listed in the Assessment and Plan section. Date/Time Care Activity Care Activity Detail Facili ty 11/16/2024 AMBULATORY - MEDICINE AMBULATORY - MEDICI NE [facility] 07/14/2024 Consult Order SCI - IFC [facility] Advance Directives List of completed, amended, or rescinded Advance Directives on record at [facility] facilities. An actual copy of the Directive is not included. Date Advance Directive Provider Source 01/22/2012 ADVANCE DIRECTIVE DISCUSSION MIGUEL [facility]EE [employer] [facility] 11/07/2009 ADVANCE DIRECTIVE DISCUSSION EMANI WINSTON [facility]
--- OUTSIDE RECORDS SUMMARY | 2024-07-16 12:38 | XMS_ITS | Encounter Summary ---
Author Name [facility] [place] [facility] [place] [facility] [place] Address [address] [place] [address] Care Team Providers Care Grey Goods Tester Name Role Phone ISAI ADDISON Primary Care [...] Patient's Relationship to Policy [place] [facility] ORGANIZAT ION FED-H [place] Jul 09, 2005 [id number] Arlene PAINTER EORGE PATIENT [facility] POINT OF SERVICE BRODERICK DEJON EMPLO GALE Mar 05, 2010 [id number] [phone] Arlene PAINTER EORGE PATIENT AETNA RX BIN [id number] PRESCRIPT ION BRODERICK AL EMPLO ALLISON Jul 25, 2008 [id number] Arlene PAINTER EORGE PATIENT AETNA* [facility] CE ORGANIZ BRODERICK AL EMPLO YEGIN [place] May 27, 2006 [id number] Arlene PAINTER EORGE PATIENT BC BS [place] BLU[employer] PREFERRED PROVIDER ORGANIZAT ION (PPO) RAEANN OGDEN @ [facility] Sep 04, 2005 [id number] Arlene PAINTER EORGE PATIENT CATAMADESTINI PRESCRIPT ION Aug 25, 2012 [id number] SECOND [id number] Arlene PAINTER EORGE PATIENT CATAMARAN [id number]/BAY PRESCRIPT ION [facility] Jul 11, 2016 [id number] SECOND [id number] [phone] Arlene PAINTER EORGE PATIENT [employer] ([id number]) PRESCRIPT ION [facility] Nov 24, 2017 [id number] Arlene PAINTER EORGE PATIENT [employer] ([id number]) PRESCRIPT ION DHRMM EDDBA Nov 24, 2004 [id number] Arlene PAINTERRGE PATIENT [facility] ORGANIZAT [facility] Nov 24, 2017 [id number] Arlene PAINTERRALIN PATIENT [facility] Jul 11, 2016 [id number] [phone] Arlene PAINTERRGE PATIENT [facility] CE ORGANIZ [facility] May 27, 2015 [id number] Arlene PAINTERRGE PATIENT [facility] ORGANIZ [facility] Jul 25, 2014 [id number] Arlene PAINTERRGE PATIENT [facility] CE ORGANIZ O Aug 25, 2012 [id number] Arlene PAINTER PATIENT Selected Encounter This section includes the information on record at [place] for the Encounter. Date/Time Encounter Type Encounter Description Reason Pro vider Source Jul 14, 2024 02:44 PM Outpatient Encounter TELEPHONE TRIAGE IHE Encounter Template Text not used by [...] 20 appointments. The data comes from all [place] treatment facilities. Appointment Date/Time Appointment Type Appointme nt Facility Name Nov 16, 2024 02:00 PM AMBULATORY - MEDICINE [place] [facility] [place] [facility] Active, Pending, and Scheduled Orders This section includes a listing of several types of active, pending, and scheduled orders, including clinic medications orders, diagnostic test orders, procedure orders and consult orders; where the start date of the order is 45 days before the date of the Encounter or 45 days after the date of theEncounter. The data comes from all [place] treatment facilities. Test Date/Time Test Type Test Details Facility Name Jul 14, 2024 04:35 PM Consult Order SCI - IFC MING Cons Messenger Floorperson's Choice [place] [facility] [place] [facility] Social History: Smoking Status (Most current) and Tobacco Use (All prior to encounter date) This section includes the most current, and the historical, smoking and tobacco- related health factors from the [place] facility where the Encounter took place. Current Smoking Status This section includes the most current smoking, or tobacco-related health factor, from the [place] facility where the Encounter took place. Date/Time Current Smoking Status Comment [facility] it Oct 29, 2023 02:00 PM VA-TOBACCO NEVER USED [place] [facility] [place] [facility] Tobacco Use History This section includes a history of the smoking, or tobacco-related health factors, that were collected on or before the date of the Encounter. The data comes from the [place] facility where the Encounter took place. Date/Time Smoking Status/Tobac co Use Comment Facility October 16, 2022 02:00 PM VA-TOBACCO NEVER USED [place] [facility] [place] [facility] Nov 13, 2019 01:28 PM VA-TOBACCO NEVER USED [facility] [place] [facility] May 23, 2018 03:31 PM VA-TOBACCO NEVER USED [facility] [place] [facility] Nov 22, 2017 02:56 PM LIFETIME NON-TOBACCO USER [facility] [place] [facility] Nov 05, 2016 02:50 PM LIFETIME NON-TOBACCO USER [place] [facility] [place] [facility] Aug 12, 2015 03:21 PM QUIT TOBACCO USE > 7 YEARS AGO quit 40 years ago [facility] Mar 19, 2012 11:16 AM LIFETIME NON-TOBACCO USER [facility] Advance Directives: All historical and current Section Date Range: From patient's date of to the date document was created. This section includes ALL of a patient's completed or amended [place] Advance and Rescinded Directives. The entries below indicate that a directive exists for the patient, but an actual copy is not included with this document. The data comes from all [place] facilities. Date Advance Directives Provider Source Jan 22, 2012 ADVANCE DIRECTIVE DISCUSSION MIGUEL CEE [facility] Nov 07, 2009 ADVANCE DIRECTIVE DISCUSSION EMANI WINSTON [facility] Encounter Notes: All associated encounter notes This section contains the clinical notes associated to the Encounter. Date/Time Encounter Note(s) Provider Source Jul 14, 2024 02:58 PM ADDENDUM: LOCAL TITLE: Addendum STANDARD TITLE: ADDENDUM DATE OF NOTE: JUL 14, 2024@14:58:31 ENTRY DATE: JUL 14, 2024@14:58:32 AUTHOR: MADINA CROOK EXP COSIGNER: URGENCY: STATUS: COMPLETED Adding PCP for advisement. /gin/ MADINA CROOK Registered Nurse Signed: 07/14/2024 14:58 Receipt Acknowledged By: 07/14/2024 15:36 /gin/ ISAI ADDISON D.O. PHYSICIAN ====== --- Original Document --- 07/14/24 CCC: CLINICAL TRIAGE: Patient Demographics Patient Name: DIMITRI PAINTER III Patient Primary Address: [address] [place] [address] [place], [place] [address] Patient Primary Phone: [phone] Patient : 1960 Patient Age: 64 Call Back Number: [phone] Caller/Recipient Relation to Patient: Self Caller Name: DIMITRI PAINTER III Emergency Contact: GABRIEL PAINTER Nursing Plan and Disposition Other course(s) of action Generated msg to PACT/Provider Provided guidance for worsening symptoms: *Caller/Patient* advised to call facilities [place] Clinical Contact Center or seek immediate medical attention for new or worsening symptoms Nurse Summary Nurse Summary: requesting PCP place referral for [facility] [place]. He reached out to clinic for an appt and was advised he needed referral from PCP. He states PCP is aware of back issues and would like a return call to confirm request. Clinical Contact Center Codes Clinic/Location: V1 CWM PHONE CCC RN IMPORTANT: This note was created by [facility] Clinical Contact Center staff. Please do not alert the staff member by adding them as a signer for future communications. Alerts are not monitored by this user. /gin/ Alfreda Barron RN VISN 1 CCC RN Signed: 07/14/2024 14:44 Receipt Acknowledged By: 07/14/2024 15:31 /gin/ FITO CARDONA LPN License Practical Nurse * AWAITING SIGNATURE * MADINA CROOK MICHAEL S [place] [facility] [place] [facility] Jul 14, 2024 02:44 PM RN PROGRESS NOTE: LOCAL TITLE: [facility]: CLINICAL TRIAGE STANDARD TITLE: RN PROGRESS NOTE DATE OF NOTE: JUL 14, 2024@14:44:24 ENTRY DATE: JUL 14, 2024@14:44:24 AUTHOR: ALFREDA BARRON EXP COSIGNER: URGENCY: STATUS: COMPLETED [facility]: CLINICAL TRIAGE Has ADDENDA Patient Demographics Patient Name: DIMITRI PAINTER III Patient Primary Address: [address] [place] [address] [place] [address] Patient Primary Phone: [phone] Patient : 1960 Patient Age: 64 Call Back Number: [phone] Caller/Recipient Relation to Patient: Self Caller Name: DIMITRI PAINTER III Emergency Contact: GABRIEL PAINTER Nursing Plan and Disposition Other course(s) of action Generated msg to PACT/Provider Provided guidance for worsening symptoms: *Caller/Patient* advised to call facilities [place] Clinical Contact Center or seek immediate medical attention for new or worsening symptoms Nurse Summary Nurse Summary: [place] requesting PCP place referral for [facility] [place]. He reached out to clinic for an appt and was advised he needed referral from PCP. He states PCP is aware of back issues and would like a return call to confirm request. Clinical Contact Center Codes Clinic/Location: V1 CWM PHONE CCC RN IMPORTANT: This note was created by [facility] Clinical Contact Center staff. Please do not alert the staff member by adding them as a signer for future communications. Alerts are not monitored by this user. /gin/ Alfreda Barron RN VISN 1 CCC RN Signed: 07/14/2024 14:44 Receipt Acknowledged By: 07/14/2024 15:31 /gin/ FITO CARDONA LPN License Practical Nurse * AWAITING SIGNATURE * MADINA CROOK 07/14/2024 ADDENDUM STATUS: COMPLETED Adding PCP for advisement. /gin/ MADINA CROOK Registered Nurse Signed: 07/14/2024 14:58 Receipt Acknowledged By: 07/14/2024 15:36 /es/ ISAI ADDISON D.O. PHYSICIAN 07/14/2024 ADDENDUM STATUS: COMPLETED have reached out to Dr. Melgar and Garett to se eif they know what clinic he is talking about and how I woudl enter it. briefly discussed with Jennifer. /gin/ ISAI ADDISON D.O. PHYSICIAN Signed: 07/14/2024 15:48 Receipt Acknowledged By: * AWAITING SIGNATURE * JENNIFER DELEON VANESSA J [facility]
== END 2024-07-16 12:15 | disposition home or self-care (01) ==
PROVIDERS: PCP Obstetrics & Gynecology; Visit Provider Anesthesiology
DX: G89.4 Chronic pain syndrome (principal); M96.1 Postlaminectomy syndrome, not elsewhere classified; T85.192A Other mechanical complication of implanted electronic neurostimulator of spinal cord electrode (lead), initial encounter; Z96.89 Presence of other specified functional implants
CPT/HCPCS: 99214

== ENCOUNTER → 2024-07-16 11:17 | Outpatient (BNVA) | payer OTHER, SELFPAY | PROVIDERS: PCP Obstetrics & Gynecology; Visit Provider Anesthesiology ==

== ENCOUNTER 2024-08-08 16:41 | Outpatient (REF) | payer OTHER, SELFPAY ==
--- NOTE | ~2024-08-08 | MR_ITS ---
EXAMINATION: MR LUMBAR SPINE WITHOUT AND WITH CONTRAST CLINICAL INFORMATION: Laminectomy syndrome. Fusion x2 previously inserted pain pump has been removed. Neural stimulator placed with no relief. Mid back pain. COMPARISON: None available. TECHNIQUE: MRI of the lumbar spine was obtained using routine sequences with and without contrast. Intravenous contrast: Gadavist 9 mL FINDINGS: There is normal lumbar lordosis. A disc prostheses and artifact related is noted at the L5-S1 disc level. Rest of the disc heights, disc signal is normal. The vertebral heights and alignment is normal. At T12-L1, L1-2, L2-3 L3-4 and L4-5 disc levels are unremarkable. There are bilateral pedicle screws at L3, L4 vertebra with interconnecting rods for fusion. The neural foramina are widely patent at all disc levels. L5-S1 disc level there is a disc prosthesis. The thecal sac is capacious without spinal canal stenosis. The neural foramina are widely patent there is minimal bilateral L5-S1 and L4-5 facet joint arthropathy. At T12-L1 disc level there is a beam hardening artifact along left posterior spinal canal likely from neutral stimulator electrode. There are no plain films are available for comparison. Conus medullaris terminates at T12 and appears normal in morphology. The paravertebral soft tissues are normal. The bone marrow signal and paravertebral soft tissues are normal. MR/MR lumbar spine wo/w con IMPRESSION: L5-S1 disc prosthesis for fusion. Posterior hardware from L3 to L4. Posterior fusion is noted. There is a beam hardening artifact from neural stimulator electrode left posterior spinal canal at T12-L1 disc level. There is no disc bulge, herniation or spinal canal stenosis at any of the disc levels. The neural foramina are widely patent. There is minimal bilateral L4-5 and L5-S1 facet joint arthropathy. Electronically signed by: Shen Meier MD 08/10/2024 07:34 AM EDT
[2024-08-08] MEDS: gadobutroL 10 ML VIAL IVPUSH (17:28)
== END 2024-08-08 16:42 | disposition home or self-care (01) ==
LOC: HO.MRI 16:41
PROVIDERS: PCP Internal Medicine; Visit Provider Anesthesiology
DX: M96.1 Postlaminectomy syndrome, not elsewhere classified (principal)
CPT/HCPCS: 72158; A9585

== ENCOUNTER → 2024-08-08 16:46 | Outpatient (BNV) | payer OTHER, SELFPAY | PROVIDERS: PCP Internal Medicine; Visit Provider Radiology Diagnostic Radiology | DX: M43.27 Fusion of spine, lumbosacral region (principal); Z96.82 Presence of neurostimulator | CPT/HCPCS: 72158 ==

== ENCOUNTER 2024-08-27 13:16 | Outpatient (AMB) | payer OTHER, SELFPAY ==
[2024-08-27 13:26] VITALS: BP 137/75; PULSE 84; O2SAT 96; BMI 28.6
--- NOTE | 2024-08-27 13:26 | MHC.OFFVIS ---
Vital Signs 08/27/24 13:26 Height 5 ft 11 in Weight 205 lb 2 oz BMI 28.6 BP 137/75 Blood Pressure Location Rt brachial Position Sitting Pulse 84 Pulse Source Pulse Oximeter Pulse Oximetry (%) 96 Oxygen Delivery Method Room Air Intake Visit Reasons: MRI FOLLOW UP/RESULTS Allergies opiods Adverse Reaction (Uncoded 08/27/24 13:26) itching, nausea HPI Comments Details: Abdiaziz is back in my office with continued complain on pain in the lower thoracic upper lumbar spine. Physical exam see as below. I believe his pain is coming from spondylosis of the lower thoracic and upper lumbar spine. The MRI of the lumbar spine which was recently obtained demonstrated no nerve root compressions or disc degeneration. I decided to schedule this patient for diagnostic medial branch block T11, T12, L1 bilateral. Prior: Initially she came in my office with mechanical bupivacaine pain pump. He had multiple side effects on opioids and he was tried on mechanical bupivacaine pain pump. He requested pain pump removal because it stopped Helping him and actually made his bilateral lower extremity week and numb. I removed pain pump and after that I performed a trial of Nevro spinal cord stimulator. Initially I was very reluctant to remove pain pump I was ready to change the existing pump for the Medtronic SynchroMed 2 electronic pain pump and give him fresh intrathecal line. However patient adamantly refused. After that the trial of Nevro demonstrated good pain relief reported about 70% pain improvement. After that implantation of the Nevro SCS was performed and originally patient reported very significant pain improvement. [facility] Medical History On beta fareed at home PVCs (premature ventricular contractions) Presence of intrathecal pump Chronic pain syndrome Postlaminectomy syndrome Premature atrial contraction Otitis externa due to herpes zoster NOEMY (obstructive sleep apnea) Malignant essential hypertension Lumbar radiculopathy Low back pain Irritable bowel Insomnia Impotence of organic origin Hypertensive disorder Hypercholesteremia Depressive disorder Bicuspid aortic valve Anxiety Anemia Allergic rhinitis Surgical History History of back surgery History of cystoscopy History of transurethral resection of prostate Social History Patient Tobacco Use Status: Never used Tobacco Review of Systems Const All systems reviewed & are unremarkable except as noted in HPI and below ENT Reports Normal hearing present Neuro Reports Normal hearing present, Denies confusion and Denies Sensory deficit (Neuro) Psych Denies confusion Physical Exam Vital Signs: Last Vital Signs Pulse 84 08/27/24 13:26 BP 137/75 08/27/24 13:26 Pulse Ox 96 08/27/24 13:26 Oxygen Delivery Method Room Air 08/27/24 13:26 BMI result Body Mass Index 28.6 Const General: No confusion Orientation/consciousness: No confusion Eyes Pupils: Equal, round and reactive pupils present EOM: EOMs intact bilaterally Chest Chest palpation & inspection: normal inspection of the chest Resp Effort & Inspection: normal respiratory effort, able to speak in complete sentences, normal respiratory pattern, no audible wheezes and no cough Cardio Jugular venous distension: no JVD Back/Spine/Pelvis Other: tenderness on palpation in paraspinal spinal region in lumbar spine. Loading test is positive. Range of motion in lumbar spine is limited. Patient has total scars 1 for lower portion of the abdomen which is anterior lumbar fusion L5-S1 and 1 in the midline lower back which delineates L3-L4 fusion in the past. The scar is a very well-healed. There is also side of the spinal cord stimulator scar very well-healed as well as side of the Nevro battery implantation also very well-healed. Neuro General: No confusion Cranial nerves: Yes Equal, round and reactive pupils present and Yes Normal hearing present Sensory Exam: No Sensory deficit (Neuro) Assessment & Plan Assessment & Plan (1) Postlaminectomy syndrome: Code(s): M96.1 - Postlaminectomy syndrome, not elsewhere classified Category: Medical (2) Spinal cord stimulator status: Code(s): Z96.89 - Presence of other specified functional implants Category: Medical (3) Chronic pain syndrome: Code(s): G89.4 - Chronic pain syndrome Category: Medical (4) Spinal cord stimulator dysfunction: Code(s): T85.192A - Other mechanical complication of implanted electronic neurostimulator of spinal cord electrode (lead), initial encounter Category: Medical (5) 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 I also will continue indomethacin for this patient. If the results of diagnostic T11-T12 L1 medial branch block will be promising for pain relief I will schedule this patient for sprint PNS. 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
--- OUTSIDE RECORDS SUMMARY | 2024-08-27 14:28 | XMS_ITS ---
Author Name [facility] [place] [facility] [place] Address [address] [place] [address] Care Team Providers Care Cable Television Line Technician Name Role Phone ISAI ADDISON Primary Care [...] Patient's Relationship to Policy [place] [facility] ORGAN[facility] ION FED-H [place] Jul 09, 2005 [id number] Arlene PAINTER EORGE PATIENT [facility]ETNA [facility] POINT OF SERVICE [place] EMPLO GALE Mar 05, 2010 [id number] Arlene PAINTER EORGE PATIENT AETNA RX BIN [id number] PRESCRIPT ION [place] EM[place]O ALLISON Jul 25, 2008 [id number] Arlene PAINTER EORGE PATIENT AETNA* [facility] CE ORGANIZ [place] EMPLO ALLISON May 27, 2006 [id number] [phone] Arlene PAINTER EORGE PATIENT BC BS [place] BLU[employer]ARD PREFERRED PROVIDER ORGANIZAT ION (PPO) RAEANN OGDEN @ HERN[facility]NDEZ Sep 04, 2005 [id number] Arlene PAINTER EORGE PATIENT MOUNIKAAMARAN PRESCRIPT ION BAY10 00SEC OND Aug 25, 2012 [id number] SECOND [id number] Arlene PAINTER EORGE PATIENT CATAMARAN [id number]/BAY PRESCRIPT ION [facility] Jul 11, 2016 [id number] SECOND [id number] Arlene PAINTRE EORGE PATIENT [employer] ([id number]) PRESCRIPT ION DHRMM EDDBA SE Nov 24, 2004 DHRMMED DBASE [id number] Arlene PAINTERRGE PATIENT [facility] ORGANIZAT ION [facility] AGERI Y Nov 24, 2017 [id number] Arlene PAINTERRGE PATIENT [facility] POINT OF SERVICE [facility] Jul 11, 2016 [id number] [phone] Arlene PAINTERRGE PATIENT [facility]GANIZ [facility] May 27, 2015 [id number] Arlene PAINTERRGE PATIENT [facility] ORGANIZAT ION [facility] Jul 25, 2014 [id number] Arlene PAINTERRGE PATIENT [facility] ORGANIZAT ION [facility] Aug 25, 2012 [id number] Arlene PAINTER PATIENT Selected Encounter This section includes the information on record at CT for the Encounter. Date/Time Encounter Type Encounter [...] 20 appointments. The data comes from all CT treatment facilities. Appointment Date/Time Appointment Type Appointme nt Facility Name Oct 29, 2023 02:00 PM AMBULATORY - MEDICINE [facility] Lab Results: +/- 30 days of the encounter This section includes the Chemistry and Hematology Lab Results on record with CT for the patient. Radiology Reports and Pathology Reports are provided separately, in subsequent sections. Lab Results This section contains the Chemistry/Hematology Results that were resulted 30 days before or 30 daysafter the date of the Encounter. Date/Time Source Result Type Result - Unit Interpretation Reference Range Comment Oct 29, 2023 02:57 PM [facility] PSA Specimen Type: SERUM No comment entered. Ordering Provider: ISAI ADDISON Report Released Date/Time: October 16, 2023 10:28 AM Reporting [facility] [address] Performing Lab: [facility] [address] [address] PSA 0.63 ng/mL 0.00-4.00 Oct 29, 2023 02:57 PM [facility] LIPID PANEL FASTING Specimen Type: SERUM No comment entered. Ordering Provider: ISAI ADDISON Report Released Date/Time: October 16, 2023 10:28 AM Reporting Lab: [facility] [address] [address] Performing Lab: [facility] [address] [address] CHOLESTEROL 200 mg/dL H TRIGLYCERIDE 197 mg/dL H 0-150 LDL calculated 107 mg/dL 0-129 CHOL/HDL 3.7 HDL CHOLESTEROL 54 mg/dL 40-60 Oct 29, 2023 02:57 PM [facility] BASIC METABOLIC PANEL (fasting) Specimen Type: SERUM No comment entered. Ordering Provider: ISAI ADDISON Report Released Date/Time: October 16, 2023 10:28 AM Reporting Lab: [facility] [address] [address] Performing Lab: [facility] [address] [facility] [address] UREA NITROGEN 25 mg/dL 7-25 GLUCOSE 106 [...] and tobacco- related health factors from the CT facility where the Encounter took place. Current Smoking Status This section includes the most current smoking, or tobacco-related health factor, from the CT facility where the Encounter took place. Date/Time Current Smoking Status Comment [facility] ity October 16, 2022 02:00 PM VA-TOBACCO NEVER USED [facility] Tobacco Use History This section includes a history of the smoking, or tobacco-related health factors, that were collected on or before the date of the Encounter. The data comes from the CT facility where the Encounter took place. Date/Time Smoking Status/Tobac co Use Comment Facility Nov 13, 2019 01:28 PM VA-TOBACCO NEVER USED [facility] May 23, 2018 03:31 PM VA-TOBACCO NEVER USED [facility] Nov 22, 2017 02:56 PM LIFETIME NON-TOBACCO USER [facility] Nov 05, 2016 02:50 PM LIFETIME NON-TOBACCO USER [facility] Aug 12, 2015 03:21 PM QUIT TOBACCO USE > 7 YEARS AGO quit 40 years ago [facility] Mar 19, 2012 11:16 AM LIFETIME NON-TOBACCO USER [facility] Advance Directives: All historical and current Section Date Range: From patient's date of to the date document was created. This section includes ALL of a patient's completed or amended CT Advance and Rescinded Directives. The entries below indicate that a directive exists for the patient, but an actual copy is not included with this document. The data comes from all CT facilities. Date Advance Directives Provider Source Jan 22, 2012 ADVANCE DIRECTIVE DISCUSSION COLEMANMIGUEL BARBOUR PENDING SALE TO [facility] Nov 07, 2009 ADVANCE DIRECTIVE DISCUSSION [place] PENDING SALE TO [facility] Encounter Notes: All associated encounter notes [...] MEDICATION RENEWAL Has ADDENDA Date: September Division: [facility] referred by Pharmacy Call Center for medication renewal: Non-controlled/maintenanc e medication Medications requested: [id number] ATORVASTATIN CALCIUM 80MG TAB [id number]$ LISINOPRIL 40MG TAB Defer to primary care provider To be mailed . Please review and renew if appropriate. *This note was generated by [facility] Customer Care. If you have any questions or need assistance, do not contact this author. Please refer all questions to your local, on-site pharmacy departments. /gin/ SAMMY GUAMAN CPhT CONCRETE MIXER [employer] [place], [place]/PHARMACY CUSTOMER CARE Signed: 10/08/2023 15:44 Receipt Acknowledged By: 10/09/2023 12:34 /gin/ ISAI ADDISON D.O. PHYSICIAN 10/08/2023 16:14 /yanick RAZO RN REGISTERED NURSE 10/08/2023 ADDENDUM STATUS: COMPLETED ALERT TO PCP for consideration of requested medication renewal /yanick RAZO RN REGISTERED NURSE Signed: 10/08/2023 16:[address] [facility]
--- OUTSIDE RECORDS SUMMARY | 2024-08-27 14:28 | XMS_ITS | Clinical Summary ---
Author Organization [facility] Address [address] [place] [address] Care Team Providers Care Family Helper Name Role Phone Trupti Camacho MD Primary Care Provider [phone] Allergies Active Allergy Reactions Criticality Noted Date [...] this topic Medical Devices Implanted Type Area Certified Residential Medication Aide Device Identifier Shelf Expiration Date Model / Serial / Lot Graft Putty Dbm [facility] - [id number] - [id number] Implanted:Qty: 1 on 08/01/2016 by Osvaldo Pal [place] [facility] [place]: Spine Lumbar TISSU[employer]ET 09/07/2017 VX-[id number] / [id number] / Component Cage Medium 76xby95 Degree [place] - [id number] - [id number] Implanted:Qty: 1 on 08/01/2016 by Osvaldo Pal [place] [facility] An[place]: Spine Lumbar [employer] 376.513 / / Screw 5.5x30 Variable - [id number] - [id number] Implanted:Qty: 3 on 08/01/2016 by Osvaldo Pal MD at [facility] Anterior: Spine Lumbar [employer] 176.230 / / Advance Directives For more information, please contact: [phone] Latest Code Status on File Code Status Date Activated Date Inactivated Comments Full Code 08/01/2016 8:11 AM 08/04/2016 12:12 AM This code status was ascertained in the following way: patient's wishes. Care Teams Family Helper Relationship Specialty Start Date End Date Trupti Camacho MD [address] [place] [address] [phone] PCP - General Internal Medicine 05/01/16
--- OUTSIDE RECORDS SUMMARY | 2024-08-27 14:28 | XMS_ITS | Encounter Summary ---
Author Name [place] Address [address] [place] [address] Care Team Providers Care Machine Veneer Repairer Name Role Phone ISAI GORDON Primary Care [...] Patient's Relationship to Policy Huerta [facility] ORGANIZAT ION FED-H MO Jul 09, 2005 [id number] [phone] Arlene PAINTER EORGE PATIENT AETNA [facility] [place]NOTE 2] POINT OF SERVICE [place] EMPLO GALE Mar 05, 2010 [id number] Arlene PAINTER EORGE PATIENT AETNA RX BIN [id number] PRESCRIPT ION [place] EMPLO ALLISON Jul 25, 2008 [id number] Arlene PAINTER EORGE PATIENT AETNA* [facility] CE ORGANIZ [place] AL EMPLO ALLISON May 27, 2006 [id number] Arlene PAINTER EORGE PATIENT BC BS [place] BLUECARD PREFERRED PROVIDER ORGANIZAT ION (PPO) [facility] PRISCA OGDEN @ [place] Sep 04, 2005 [id number] Arlene PAINTER EORGE PATIENT CATAMARAN PRESCRIPT ION BAY10 00SEC OND Aug 25, 2012 [id number] SECOND [id number] Arlene PAINTER EORGE PATIENT CATAMARAN [id number]/BAY PRESCRIPT ION COMMO [facility] Jul 11, 2016 [id number] SECOND [id number] Arlene PAINTER EORGE PATIENT EXPRESS SCRIPTS ([id number]) PRESCRIPT ION DHRMM EDDBA SE Nov 24, 2004 DHRMMED DBASE [id number] Arlene PAINTER EORGE PATIENT [facility] CE ORGANIZAT ION [facility] Nov 24, 2017 [id number] Arlene PAINTER EORGE [facility]IENT [facility] PO[facility] Jul 11, 2016 [id number] Arlene PAINTERRGE PATIENT [facility] CE ORGANIZ [facility] May 27, 2015 [id number] Arlene PAINTER EORGE PATIENT [facility] ORGANIZAT ION [facility] Jul 25, 2014 [id number] Arlene PAINTER EORGE PATIENT [facility] CE ORGANIZAT ION [facility] Aug 25, 2012 [id number] Arlene PAINTER PATIENT Selected Encounter This section includes the information on record at [place] for the Encounter. Date/Time Encounter Type Encounter Description Reason Provider Source May 14, 2024 02:00 PM OFFICE O/P EST MOD 30 MIN PRIMARY CARE/MEDICINE ICD-10-CM G47.30 Sleep apnea, unspecified FURCOLO,ISAI E Encounter Template Text not used by [place] Assessments - Encounter Diagnoses This section includes the primary and secondary diagnoses documented for the Encounter. Date/Time Primary/Secondary Diagnosis Diagnosis Name Provider Source May 14, 2024 02:35 PM PRIMARY Sleep apnea, unspecified FURCOLO,ISAI [place] [facility] [place] [facility] May 14, 2024 02:35 PM SECONDARY Allergic rhinitis, unspecified FURCOLO,ISAI [place] [facility] [place] [facility] May 14, 2024 02:35 PM SECONDARY Encounter for immunization FITO CARDONA [facility] [place] [facility] May 14, 2024 02:35 PM SECONDARY Essential (primary) hypertension FURCOLO,ISAI [facility] [place] [facility] May 14, 2024 02:35 PM SECONDARY Low back pain, unspecified FURCOLO,ISAI [place] [facility] [place] [facility] May 14, 2024 02:35 PM SECONDARY Pure hypercholesterolem ia, unspecified FURCOLO,ISAI [place] [facility] [place] [facility] Lab Results: +/- 30 days of the encounter This section includes the Chemistry and Hematology Lab Results on record with VA for the patient. Radiology Reports and Pathology Reports are provided separately, in subsequent sections. Lab Results This section contains the Chemistry/Hematology Results that were resulted 30 days before or 30 daysafter the date of the Encounter. Date/Time Source Result Type Result - Unit Interpretation Reference Range Comment May 14, 2024 02:33 PM [facility] LIPID PANEL FASTING Specimen Type: SERUM No comment entered. Ordering Provider: ISAI GORDON Report Released Date/Time: Oct 29, 2023 02:42 PM Reporting Lab: [facility] [place] [address] [address] Performing Lab: [facility] [place] [address] [address] CHOLESTEROL 211 mg/dL H TRIGLYCERIDE 203 mg/dL H 0-150 LDL calculated 122 mg/dL 0-129 CHOL/HDL 4.4 HDL CHOLESTEROL 48 mg/dL 40-60 May 14, 2024 02:33 PM [place] [facility] [facility] BASIC METABOLIC PANEL (fasting) Specimen Type: SERUM No comment entered. Ordering Provider: ISAI GORDON Report Released Date/Time: Oct 29, 2023 02:42 PM Reporting Lab: [facility] [address] [address] Performing Lab: [facility] [address] [facility] [address] UREA NITROGEN 25 mg/dL 7-25 GLUCOSE 106 mg/dL H 65-100 SODIUM 138 mmol/L 135-145 POTASSIUM 4.6 mmol/L 3.5-5.0 CHLORIDE 105 mmol/L 100-110 CO2 24 meq/L 20-30 CREATININE, Serum 1.19 mg/dL 0.50-1.40 eGFR(CKD-EPI 2020) 69 mL/min >60 May 14, 2024 02:33 PM [facility] LIVER FUNCTION Specimen Type: SERUM No comment entered. Ordering Provider: ISAI GORDON Report Released Date/Time: Oct 29, 2023 02:42 PM Reporting Lab: [address] [address] Performing Lab: [address] [address] PROTEIN,TOTAL 7.7 g/dL 6.0-8.3 ALBUMIN 4.3 g/dL 3.5-5.0 ALKALINE PHOSPHATASE 115 U/L 40-150 AST 25 U/L 5-34 ALT 29 U/L BILIRUBIN, TOTAL 0.6 mg/dL 0.2-1.2 Vital Signs: All taken on the encounter date This section contains inpatient and outpatient Vital Signs collected on the date of the Encounter. Date/Time Temperature Pulse Blood Pressure Respiratory Rate SP02 Pain Height Weight Body Mass Index Source May 14, 2024 01:52 PM 98.3 76 128/82 16 96 4 205 28 [facility] Immunizations: All administered on the encounter date This section contains immunizations associated to the Encounter. Immunization Series Date Issued Reaction Comments TDAP May 14, 2024 Social History: Smoking Status (Most current) and Tobacco Use (All prior to encounter date) This section includes the most current, and the historical, smoking and tobacco- related health factors from the [place] facility where the Encounter took place. Current Smoking Status This section includes the most current smoking, or tobacco-related health factor, from the [place] facility where the Encounter took place. Date/Time Current Smoking Status Comment Carole barboza Oct 29, 2023 02:00 PM VA-TOBACCO NEVER USED [facility] Tobacco Use History This section includes a history of the smoking, or tobacco-related health factors, that were collected on or before the date of the Encounter. The data comes from the [place] facility where the Encounter took place. Date/Time Smoking Status/Tobac co Use Comment Facility October 16, 2022 02:00 PM VA-TOBACCO NEVER USED [place] [facility] [place] [facility] Nov 13, 2019 01:28 PM VA-TOBACCO NEVER USED [place] [facility] [place] [facility] May 23, 2018 03:31 PM VA-TOBACCO NEVER USED [place] [facility] [place] [facility] Nov 22, 2017 02:56 PM LIFETIME NON-TOBACCO USER [place] [facility] [place] [facility] Nov 05, 2016 02:50 PM LIFETIME NON-TOBACCO USER [place] [facility] [place] [facility] Aug 12, 2015 03:21 PM QUIT TOBACCO USE > 7 YEARS AGO quit 40 years ago [place] [facility] [facility] Mar 19, 2012 11:16 AM LIFETIME NON-TOBACCO USER [place] [facility] Advance Directives: All historical and current Section Date Range: From patient's date of to the date document was created. This section includes ALL of a patient's completed or amended [place] Advance and Rescinded Directives. The entries below indicate that a directive exists for the patient, but an actual copy is not included with this document. The data comes from all [facility]. Date Advance Directives Provider Source Jan 22, 2012 ADVANCE DIRECTIVE DISCUSSION MIGUEL CEE [facility] Nov 07, 2009 ADVANCE DIRECTIVE DISCUSSION EMANI WINSTON [facility] Encounter Notes: All associated encounter notes This section contains the clinical notes associated to the Encounter. 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 HPI comments: Dimitri is back in my office with continuous complain on upper lumbar pain. he has spinal cord stimulator Nevro Implanted. I recommended him to contact spinal cord stimulator title insurance sales representative Madina to adjust the stimulation to help her more elevated still back pain. In the past we were planning ot do meidal branch blocks on the upper lumbar spine however patient was not very eager to go for this procedure. He request me to prescribe some medication ATI decided tp prescribe him indomethacin his pain. I also expained to him that indomethacin should e takne with food. to evaluate the progressionof his postlaminectomy syndrome I will schedule him for MRI of the lumbar spine. Possibity exists that his pain is related to vertebra enic pain syndrome since he comlaints on pain incrase with prolonged sitting. He also reports pain with activities. he reports pain with prolonged standing and walking. flexing forward aggravates his pain more than flexing backwards. Prior: initially she came in my offic ewith mechanical bupivacaine pain pump. he had multiple side effects on opioids and he was tried on mechanical bupvacaine pain pump. he requested pain pump removal because it stopped helping him and actually made his bilateral lower extremity week and numb. I removed pain pump and after that i pervomred a trial of nevro spinal cord stimulator. initially i was very reluctatn to remove pain pump I was ready to change the exisitng pump for the Medtronic SynchroMed 2 electronic pain pump and give him fresh intrathecal line, However patient adamantly refused. After that the trial of Nevro demonstrated good pain relief reported about 70% pain improvement After that implantation of the Nevro SCS was performed and originally patient reported very significant pain improvement Assessment & Plan Assessment & Plan (1) Postlaminectomy syndrome: M96. l - Postlaminectomy syndrome, not elsewhere classified Medical (2) Spinal cord stimulator status: Z96,89 - Presence of other specified functional implants Medical (3) Chronic pain syndrome: G89.4 - Chronic pain syndrome Medical ( 4) Spinal cord stimulator dysfunction: T85, 192A - Other mechanical complication of implanted electronic neurostimulator of spinal cord electrode (lead), initial encounter Plan 1, He will contact [employer] representatives and I will try to bring the stimulation as high as possible on the existing electrodes, Maybe it will cover his pain better, 2, I started him on indomethacin, Side effects were explained. Patient is very negative about opioids, Tramadol was offered but patient does not want it. 3, Potentially diagnostic medial branch block T12-Ll L3 can be done diagnostically to see if this medial branch block and help the pain of this patient Sprint PNS could be considered in the future if diagnostic block will be working versus therapeutic injections, Orders MR lumbar spine wo/w con Medications: indomethacin 50 mg PO TRINITY PRN 90 caps lRF pain (scale score 4-6) 30 days administer with food or milk Discontinued methocarbamol 750 mg PO QSH 30 days PRN 90 tabs 6RF muscle spasticity /gin/ FITO CARDONA LPN License Practical Nurse Signed: 07/20/2024 15:35 Receipt Acknowledged By: 07/21/2024 15:00 /gin/ ISAI GORDON D.O. PHYSICIAN FITO CARDONA [place] [facility] [place] [facility] May 15, 2024 08:05 AM LETTERS: LOCAL TITLE: PATIENT LETTER (T) STANDARD TITLE: LETTERS DATE OF NOTE: MAY 15, 2024@08:05 ENTRY DATE: MAY 15, 2024@08:05:56 AUTHOR: ISAI GORDON EXP COSIGNER: URGENCY: STATUS: COMPLETED [facility] Toll Free Number Primary Care Telephone Assistance can be reached at extension [phone] [facility] scheduling can be reached at extension [phone] [facility] scheduling can be reached at ext [phone], [address] [place], Your recent test results are as follows: [...] data available Sincerely, Your Primary Care Team [facility] [address] [address] [place] [address] [phone] [facility] [address] [place] [address] [place] [address] [place] [address] [facility] [address] [place] [phone] [place] [address] [facility] [place] [facility] May 14, 2024 02:04 PM PREVENTIVE MEDICINE [...] Administered: May 14, 2024 14:00 Series: Complete Harbor Engineer: [employer] Lot: [id number] Exp Date: Jun 20, [address] [facility]: [id number] Admin Route/Site: INTRAMUSCULAR/LEFT DELTOID Dosage: 0.5mL Vaccine Information Statement(s): TDAP (TETANUS, DIPHTHERIA, PERTUSSIS) VACCINE VIS Dec 30, 2020 (CROATIAN) Order By: Policy Administered By: Fiot Cardona Vaccine Information Sheet (VIS) was given to the patient/caregiver, education regarding adverse reactions was discussed, as well as barriers to learning, if any, were acknowledged. /gin/ FITO CARDONA LPN License Practical Nurse Signed: 05/14/2024 14:05 FITO CARDONA [place] [facility] May 14, 2024 02:01 PM PHYSICIAN NOTE: LOCAL TITLE: MD NOTE STANDARD TITLE: PHYSICIAN NOTE DATE OF NOTE: MAY 14, 2024@14:01 ENTRY DATE: MAY 14, 2024@14:01:27 AUTHOR: ISAI GORDON COSIGNER: URGENCY: STATUS: COMPLETED DIMITRI PAINTER III is a 63 year old MALE who is being seen today in primary care for routine follow up. CARE TEAM Community Primary Care Provider: Dr. Effie Fontenot, [facility] Specialists: Community Specialists: pain management - [place] [facility]- Dr. Guevara HISTORY PERIOD OF SERVICE [...] rhinitis 2. Low back pain (SNOMED CT 102842849) 3. Benign essential hypertension (SNOMED CT 2034243) 4. Hypercholesterolemia (SNOMED CT 23312442) 5. 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 has neurostimulaor that he thinks the leads [...] PHYSICIAN Signed: 05/14/2024 14:35 ISAI GORDON [facility]
--- OUTSIDE RECORDS SUMMARY | 2024-08-27 14:29 | XMS_ITS ---
Author Name [place] Address [address] [place] [address] Care Team Providers Care Health Information Manager Name Role Phone ISAI ADDISON Primary Care [...] Patient's Relationship to Policy Huerta [facility] ORGANIZAT ION FED-H [place] Jul 09, 2005 [id number] Arlene PAINTER EORGE PATIENT AETNA [facility] POINT OF SERVICE BRODERICK AL EMPLO GALE Mar 05, 2010 [id number] Arlene PAINTER EORGE PATIENT AETNA RX BIN [id number] PRESCRIPT ION [place] AL EMPLO ALLISON Jul 25, 2008 [id number] [phone] Arlene PAINTER EORGE PATIENT AETNA* [facility] CE ORGANIZ BRODERICK AL EMPLO ALLISON May 27, 2006 [id number] Arlene PAINTER EORGE PATIENT BC BS [place] BLUECARD PREFERRED PROVIDER ORGANIZAT ION (PPO) RAEANN OGDEN @ [place] Sep 04, 2005 [id number] Arlene PAINTER EORGE PATIENT MOUNIKAAMARAN PRESCRIPT ION BAY10 00SEC OND Aug 25, 2012 [id number] SECOND [id number] Arlene PAINTER EORGE PATIENT CATAMARAN [id number] PRESCRIPT ION [facility] Jul 11, 2016 [id number] SECOND [id number] Arlene PAINTER EORGE PATIENT EXPRESS SCRIPTS ([id number]) PRESCRIPT ION DHRMM EDDBA SE Nov 24, 2004 DHRMMED DBASE [id number] Arlene PAINTERRGE PATIENT [facility] ORGANIZAT ION [facility] AGEAZ Y Nov 24, 2017 [id number] Arlene PAINTERRGE PATIENT [facility] POINT OF SERVICE [facility] Jul 11, 2016 [id number] Arlene PAINTERRGE PATIENT [facility] ORGANIZ [facility] May 27, 2015 [id number] Arlene PAINTER EORGE PATIENT [facility] ORGANIZAT ION [facility] Jul 25, 2014 [id number] Arlene PAINTERRGE PATIENT [facility] ORGANIZAT ION [facility] Aug 25, 2012 [id number] Arlene PAINTER PATIENT Selected Encounter This section includes the information on record at [place] for the Encounter. Date/Time Encounter Type Encounter [...] 20 appointments. The data comes from all [place] treatment facilities. Appointment Date/Time Appointment Type Appointme nt Facility Name May 14, 2024 02:00 PM [facility] Lab Results: +/- 30 days of the encounter This section includes the Chemistry and Hematology Lab Results on record with [place] for the patient. Radiology Reports and Pathology Reports are provided separately, in subsequent sections. Lab Results This section contains the Chemistry/Hematology Results that were resulted 30 days before or 30 daysafter the date of the Encounter. Date/Time Source Result Type Result - Unit Interpretation Reference Range Comment Oct 29, 2023 02:57 PM [facility] LIPID PANEL FASTING Specimen Type: SERUM No comment entered. Ordering Provider: ISAI ADDISON Report Released Date/Time: October 16, 2023 10:28 AM Reporting Lab: [facility] [address] Performing Lab: [facility] [address] [address] CHOLESTEROL 200 mg/dL H TRIGLYCERIDE 197 mg/dL H 0-150 LDL calculated 107 mg/dL 0-129 CHOL/HDL 3.7 HDL CHOLESTEROL 54 mg/dL 40-60 Oct 29, 2023 02:57 PM [facility] PSA Specimen Type: SERUM No comment entered. Ordering Provider: ISAI ADDISON Report Released Date/Time: October 16, 2023 10:28 AM Reporting Lab: [facility] [place] [address] [address] Performing Lab: [facility] [address] [address] PSA 0.63 ng/mL 0.00-4.00 Oct 29, 2023 02:57 PM [facility] BASIC METABOLIC PANEL (fasting) Specimen Type: SERUM No comment entered. Ordering Provider: ISAI ADDISON Report Released Date/Time: October 16, 2023 10:28 AM Reporting Lab: [facility] [address] [address] Performing Lab: [place] [facility] [place] [facility] [address] [facility] [address] UREA NITROGEN 25 mg/dL 7-25 GLUCOSE 106 [...] and tobacco- related health factors from the [place] facility where the Encounter took place. Current Smoking Status This section includes the most current smoking, or tobacco-related health factor, from the [place] facility where the Encounter took place. Date/Time Current Smoking Status Comment [facility] Oct 29, 2023 02:00 PM VA-TOBACCO NEVER USED [facility] Tobacco Use History This section includes a history of the smoking, or tobacco-related health factors, that were collected on or before the date of the Encounter. The data comes from the [place] facility where the Encounter took place. Date/Time Smoking Status/Tobac co Use Comment Facility October 16, 2022 02:00 PM VA-TOBACCO NEVER USED [place] [facility] [facility] Nov 13, 2019 01:28 PM VA-TOBACCO NEVER USED [place] [facility] [place] [facility] May 23, 2018 03:31 PM VA-TOBACCO NEVER USED [place] [facility] [place] [facility] Nov 22, 2017 02:56 PM LIFETIME NON-TOBACCO USER [place] [facility] [facility] Nov 05, 2016 02:50 PM LIFETIME NON-TOBACCO USER [place] [facility] [place] [facility] Aug 12, 2015 03:21 PM QUIT TOBACCO USE > 7 YEARS AGO quit 40 years ago [place] [facility] [place] [facility] Mar 19, 2012 11:16 AM LIFETIME NON-TOBACCO USER [place] [facility] [facility] Advance Directives: All historical and current Section Date Range: From patient's date of to the date document was created. This section includes ALL of a patient's completed or amended [place] Advance and Rescinded Directives. The entries below indicate that a directive exists for the patient, but an actual copy is not included with this document. The data comes from all [place] facilities. Date Advance Directives Provider Source Jan 22, 2012 ADVANCE DIRECTIVE DISCUSSION MIGUEL CEE [facility] Nov 07, 2009 ADVANCE DIRECTIVE DISCUSSION EMANI WINSTON Tika [facility] Encounter Notes: All associated encounter notes This section contains the clinical notes associated to the Encounter. Date/Time Encounter Note(s) Provider Source Nov 15, 2023 06:09 AM PHARMACY NOTE: LOCAL TITLE: V1 PHARMACY CUSTOMER CARE MEDICATION RENEWAL STANDARD TITLE: PHARMACY NOTE DATE OF NOTE: NOV 15, 2023@06:09 ENTRY DATE: NOV 15, 2023@06:10:03 AUTHOR: LISE JIN EXP COSIGNER: URGENCY: STATUS: COMPLETED Date: Oct Division: [facility] referred by Pharmacy Call Center for medication renewal: Non-controlled/maintenance medication Medications requested: [id number] HYDROCHLOROTHIAZIDE 25MG TAB Patient has 3 days of medication remaining, please alert outpatient pharmacy when order is placed so it can be expedited Defer to primary care provider To be mailed . Please review and renew if appropriate. *This note was generated by [facility] Pharmacy Customer Care. If you have any questions or need assistance, do not contact this author. Please refer all questions to your local, on-site pharmacy departments. /gin/ LISE JIN CPhT Agricultural Equipment Sales Engineer, [place]/Pharmacy Customer Care Signed: 11/15/2023 06:10 Receipt Acknowledged By: 11/15/2023 16:55 /es/ ISAI ADDISON D.O. PHYSICIAN 11/15/2023 09:16 /gin/ MAKAYLA SOLO REGISTERED NURSE for LISE MARTIN [place] [facility]
--- OUTSIDE RECORDS SUMMARY | 2024-08-27 14:29 | XMS_ITS | Clinical Summary ---
Author Organization [facility] it Address [address] [place] [address] Care Team Providers Care Deaf And Hard Of Hearing Teacher Name Role Phone Trupti Camacho MD Primary Care Provider [phone] Surgical History Surgery Date Site/Laterality Comments INTRATHECAL [...] 2024 Influenza Vaccine (#1) 2024 RSV Immunization Adult Patie nts (1 - 1-dose 75+ series) 2035 HIB [...] age to complete this topic Care Teams Deaf And Hard Of Hearing Teacher Relationship Specialty Start Date End Date Trupti Camacho MD [address] [place] [id number] PCP - General Internal Medicine 05/01/16
--- OUTSIDE RECORDS SUMMARY | 2024-08-27 14:29 | XMS_ITS | Continuity of Care Document ---
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 It does not include entries that were removed or entered in error. Problem Status Onset Date Problem Type Date of Resolution Comments Source Allergic rhinitis Active Condition [facility] [place] [facility] Allergic rhinitis due to other allergen (ICD-9-CM 477.8) Active Condition [facility] Anxiety * (ICD-9-CM 300.00/300.09) Active Condition [facility] [place] [facility] Benign essential hypertension (SNOMED CT 2018257) Active Condition [facility] Benign hypertension Active Condition [facility] Chronic Back Pain (ICD-9-CM 724.5) Active Condition [facility] Chronic Low Back Pain Active Condition [facility] Degeneration of intervertebral disc (ICD-9-CM 722.6) Active Condition [facility] Essential Hypertension (ICD-9-CM 401.9) Active Condition [facility] Generalized Anxiety Disorder * (ICD-9-CM 300.02) Active Condition [facility] Hypercholesterolemia (SNOMED CT 16472908) Active Condition [facility] Hypertension Active Condition [facility] Low back pain (SNOMED CT 949959591) Active Condition Jul 14, 2024 Entered By: WILLIAM ADDISON Comment: 4 back surgeries, dorsal stimulator, has seen [facility]- requested referral for MD spine clinic in [place]- placed SCI consult [facility] [place] [facility] Murmur * (ICD-9-CM 785.2) Active Condition [facility] Screening for Malignant Neoplasms of colon (ICD-9-CM V76.51) Active Condition [facility] Sleep apnea Active Condition [facility] Unspecified deficiency anemia (ICD-9-CM 281.9) Active Condition [facility] POSTLAMINECT SYND-LUMBAR Inactive Condition [facility] Diagnosis: ICD-10-CM G47.30 Sleep apnea, unspecified Active Diagnosis [facility] Diagnosis: ICD-10-CM M54.50 Low back pain, unspecified Active Diagnosis [facility] Medications Combined list of outpatient medications from Department of Defense and [facility] Affairs facilities.Medications provided include 1) outpatient medications from the last 15 months, and 2) patient-reported medications. Medication Details Route Status Patient Instructions Prescription Expires Prescription Number Last Dispense Date Ordering Provider Order Date Order Qty Source AMLODIPINE BESYLATE 10MG TAB TAKE ONE TABLET BY MOUTH ONCE DAILY FOR BLOOD PRESSURE /HEART, DO NOT TAKE WITH GRAPEFRU IT JUICE ORAL ACTIVE 05/15/2025 [id number] FURCOLO,T CLAY 2023 90 [facility] [place] N [place] 80MG TAB TAKE ONE-HALF TABLET BY MOUTH EVERY DAY FOR CHOLESTE ROL ORAL ACTIVE 10/09/2024 [id number] FURCOLO,T CLAY 2023 45 [facility] AT[place] N [place] 80MG TAB TAKE ONE-HALF TABLET BY MOUTH EVERY DAY FOR CHOLESTE ROL ORAL DISCONT INUED 10/17/2023 [id number] LIZETH CORTES AMQUYNH JAWED 2022 45 [facility] BUSPIRONE HCL 10MG TAB TAKE ONE TABLET BY MOUTH THREE TIMES A DAY ORAL ACTIVE ZOFIASADIE PARISIA G 2009 [facility] DICYCLOMINE HCL 10MG CAP TAKE 1 CAPSULE BY MOUTH THREE TIMES A DAY NEEDED ORAL ACTIVE ZOFIASADIE PARISIA G 2009 [facility] DIPHENHYDRA MINE CAP,ORAL TAKE DOSAGE NOT KNOWN BY PATIENT BY MOUTH PRN ORAL ACTIVE AGGAN AVILA 2011 [facility] ESCITALOPRA M OXALATE 20MG TAB TAKE ONE-HALF TABLET BY MOUTH EVERY DAY ORAL ACTIVE GAGAN AVILA HNETTA 2009 [facility] GABAPENTIN 100MG CAP TAKE ONE CAPSULE BY MOUTH THREE TIMES A DAY FOR NERVE PAIN ORAL ACTIVE 05/15/2025 [id number] FURCOLO,T CLAY [address] [facility] HYDROCHLORO THIAZIDE 25MG TAB TAKE ONE TABLET BY MOUTH ONCE DAILY TO PREVENT FLUID/CO NTROL BLOOD PRESSURE ORAL ACTIVE 11/15/2024 [id number] FURCOLO,T CLAY 2023 90 [facility] LISINOPRIL 40MG TAB TAKE ONE TABLET BY MOUTH EVERY DAY TO CONTROL BLOOD PRESSURE ORAL ACTIVE 10/09/2024 [id number] FURCOLO,T CLAY 2023 90 [facility] LISINOPRIL 40MG TAB TAKE ONE TABLET BY MOUTH EVERY DAY TO CONTROL BLOOD PRESSURE ORAL DISCONT INUED 05/02/2024 [id number] LIZETH CORTES AMMED JAWED 2022 90 [facility] MELOXICAM 15MG TAB TAKE ONE-HALF TABLET BY MOUTH ONCE DAILY FOR PAIN ORAL 05/02/2024 [id number] LIZETH CORTES AMMED JAWED 2022 15 [facility] METOPROLOL SUCCINATE 100MG TAB,SA TAKE ONE TABLET BY MOUTH ONCE DAILY ORAL ACTIVE LIZETH CORTES AMQUYNH JAWED 2017 [facility] SPIRONOLACT ONE 25MG TAB TAKE ONE TABLET BY MOUTH ONCE DAILY ORAL ACTIVE FURCOLO,T CLAY 2023 [facility] Allergies, Adverse Reactions, Alerts Combined list of allergies from Department of Defense and Veterans Affairs facilities. It does not include entries that were removed or entered in error. Substance Category Reaction Severity Reaction type Status Date Reported Comments Source MORPHINE Propensity to adverse reactions to drug (finding) active 11/08/2009 [facility] Immunizations Combined list of available immunizations from the Department of Defense and Veterans Affairs facilities. Immunization Series Date Given Administered By Site Reaction Lot Number CVX Code Drug Shipping Clerk Packing Status Comments Source TDAP 2023 FITO CARDONA [...] INFLUENZA, UNSPECIFIED FORMULATION 2011 88 complet ed [facility] TD(ADULT) UNSPECIFIED FORMULATION 2011 139 complet ed [facility] FLU,3 YRS (HISTORICAL) 2010 88 complet ed [facility] TD(ADULT) UNSPECIFIED FORMULATION 2010 139 complet ed [facility] [place] INFLUENZA, UNSPECIFIED FORMULATION 2009 88 complet ed [facility] INFLUENZA, UNSPECIFIED FORMULATION 2008 88 complet ed [facility] INFLUENZA, UNSPECIFIED FORMULATION 2008 88 complet ed [facility] INFLUENZA, UNSPECIFIED FORMULATION 2004 88 complet ed [facility] INFLUENZA, UNSPECIFIED FORMULATION 2004 88 complet ed [facility] INFLUENZA, UNSPECIFIED FORMULATION 2002 88 complet ed [facility] Results Combined list of recent chemistry, hematology [...] Oct 29, 2023 02:42 PM Reporting Lab: [facility] [address] Performing Lab: [facility] [address] [address] [facility] LIPID PANEL FASTING TRIGLYCERID E [MASS/VOLUM E] IN SERUM OR PLASMA 203 mg/dL 0 - 150 05/14 H Specimen Type: SERUM No comment entered. Ordering Provider: WILLIAM ADDISON Report Released Date/Time: Oct 29, 2023 02:42 PM Reporting Lab: [facility] [address] [address] Performing Lab: [facility] [address] [address] [facility] LIPID PANEL FASTING CHOLESTEROL IN LDL [MASS/VOLUM E] IN SERUM OR PLASMA BY CALCULATION 122 mg/dL 0 - 129 05/14 Specimen Type: SERUM No comment entered. Ordering Provider: WILLIAM ADDISON Report Released Date/Time: Oct 29, 2023 02:42 PM Reporting Lab: [address] [address] Performing Lab: [facility]RL TRN [facility]ITALUSEBL[facility] [address] [address] [facility]R WSTRN [facility]ITALUSE [facility] LIPID PANEL FASTING CHOLESTEROL .TOTAL/CHOL ESTEROL IN HDL [MASS RATIO] IN SERUM OR PLASMA 4.4 05/14 Specimen Type: SERUM No comment entered. Ordering Provider: WILLIAM ADDISON Report Released Date/Time: Oct 29, 2023 02:42 PM Reporting Lab: [facility]ANRL TRN [facility] [address] [address] Performing Lab: [facility]ANRL TRN [facility]ITALUSEBLY[facility] [address] [address] [facility]ANRGADSDEN [facility]ENTERN [facility]ITALUSE [facility] LIPID PANEL FASTING CHOLESTEROL IN HDL [MASS/VOLUM E] IN SERUM OR PLASMA 48 mg/dL 40 - 60 05/14 Specimen Type: SERUM No comment entered. Ordering Provider: WILLIAM ADDISON Report Released Date/Time: Oct 29, 2023 02:42 PM Reporting Lab: [facility] [place] [place] [facility] [address] [address] Performing Lab: [facility]ANRL TRN [facility]ITALUSE[address] [address] [facility]ANRGADSD[facility]ERN [facility]USE [facility] BASIC METABOLIC PANEL (fasting) UREA NITROGEN [MASS/VOLUM E] IN SERUM OR PLASMA 25 mg/dL 7 - 25 05/14 Specimen Type: SERUM No comment entered. Ordering Provider: WILLIAM ADDISON Report Released Date/Time: Oct 29, 2023 02:42 PM Reporting Lab: [facility] [place] [place] [facility] [address] [address] Performing Lab: [facility]RL WSTRN [facility]ITALUSE[address] [address] [facility]ANRBULLOCK COUNTY HOSPITALTRN [facility]OSPITALUSE [facility] BASIC METABOLIC PANEL (fasting) GLUCOSE [MASS/VOLUM E] IN SERUM OR PLASMA 106 mg/dL 65 - 100 05/14 H Specimen Type: SERUM No comment entered. Ordering Provider: WILLIAM ADDISON Report Released Date/Time: Oct 29, 2023 02:42 PM Reporting Lab: [facility] M[facility]ANRL TRN [facility]SEBLYTHED[facility] [address] [address] Performing Lab: [facility] [place] [facility] [address] [address] [facility] M[facility]RL [facility]N [place] [facility] BASIC METABOLIC PANEL (fasting) SODIUM [MOLES/VOLU ME] IN SERUM OR PLASMA 138 mmol/L 135 - 145 05/14 Specimen Type: SERUM No comment entered. Ordering Provider: WILLIAM ADDISON Report Released Date/Time: Oct 29, 2023 02:42 PM Reporting Lab: [facility] [place] [facility] [address] [address] Performing Lab: MD CNTRL W[facility]N [facility]ITALUSETS [facility] [address] [address] [facility]ANRBULLOCK COUNTY HOSPITALTRN [facility]OSPITALUSE [facility] BASIC METABOLIC PANEL (fasting) POTASSIUM [MOLES/VOLU ME] IN SERUM OR PLASMA 4.6 mmol/L 3.5 - 5.0 05/14 Specimen Type: SERUM No comment entered. Ordering Provider: WILLIAM ADDISON Report Released Date/Time: Oct 29, 2023 02:42 PM Reporting Lab: [facility] [place] [place] [facility] [address] [address] Performing Lab: MD CNTRL W[facility]N [facility]PITALUSETS [facility] [address] [address] [facility]IGANRBULLOCK COUNTY HOSPITALTRN [facility]OSPITALUSE [facility] BASIC METABOLIC PANEL (fasting) CHLORIDE [MOLES/VOLU ME] IN SERUM OR PLASMA 105 mmol/L 100 - 110 05/14 Specimen Type: SERUM No comment entered. Ordering Provider: WILLIAM ADDISON Report Released Date/Time: Oct 29, 2023 02:42 PM Reporting Lab: [facility] [place] [facility] [address] [address] Performing Lab: MD CNTRL W[facility]N [facility]ITALUSETS [facility] [address] [address] [facility] MICHIGANRGADSDEN REGIONAL MEDICAL CENTERN [facility]OSPITALUSE [facility] BASIC METABOLIC PANEL (fasting) CARBON DIOXIDE, TOTAL [MOLES/VOLU ME] IN SERUM OR PLASMA 24 meq/L 20 - 30 05/14 Specimen Type: SERUM No comment entered. Ordering Provider: FURCOLO,TIN A Report Released Date/Time: Oct 29, 2023 02:42 PM Reporting Lab: [facility] [place] [facility] [address] [address] Performing Lab: [facility] [place] [facility] [address] [address] MD [facility] [facility] BASIC METABOLIC PANEL (fasting) CREATININE [MASS/VOLUM E] IN SERUM OR PLASMA 1.19 mg/dL 0.50 - 1.40 05/14 Specimen Type: SERUM No comment entered. Ordering Provider: WILLIAM ADDISON Report Released Date/Time: Oct 29, 2023 02:42 PM Reporting Lab: [facility] [place] [facility] [address] [address] Performing Lab: MD CNTRL WSTRN [facility]ITALUSETS [address] [address] [facility] M[facility]IGANRL WSTRN [facility]OSPITALUSE [facility] BASIC METABOLIC PANEL (fasting) GLOMERULAR FILTRATION RATE/1.73 SQ M.PREDICTED [VOLUME RATE/AREA] IN SERUM, PLASMA OR BLOOD BY CREATININE- BASED FORMULA (CKD-EPI 2020) 69 mL/min 60 05/14 Specimen Type: SERUM No comment entered. Ordering Provider: WILLIAM ADDISON Report Released Date/Time: Oct 29, 2023 02:42 PM Reporting Lab: [facility] [place] [place] [facility] [address] [address] Performing Lab: [place] [place] [address] [address] [facility] M[facility]ANRL WSTRN [place] [facility] LIVER FUNCTION PROTEIN [MASS/VOLUM E] IN SERUM OR PLASMA 7.7 g/dL 6.0 - 8.3 05/14 Specimen Type: SERUM No comment entered. Ordering Provider: WILLIAM ADDISON Report Released Date/Time: Oct 29, 2023 02:42 PM Reporting Lab: [facility] [place] [facility] [address] [address] Performing Lab: MD CNTRL WSTRN [facility]ITALUSETS [address] [address] [facility]ANRL WSTRN [facility]OSPITALCHUSE [facility] LIVER FUNCTION ALBUMIN [MASS/VOLUM E] IN SERUM OR PLASMA 4.3 g/dL 3.5 - 5.0 05/14 Specimen Type: SERUM No comment entered. Ordering Provider: WILLIAM ADDISON Report Released Date/Time: Oct 29, 2023 02:42 PM Reporting Lab: [facility] [place] [facility] [address] [address] Performing Lab: [facility] [place] [facility] [address] [address] [facility] [place] [facility] LIVER FUNCTION ALKALINE PHOSPHATASE [ENZYMATIC ACTIVITY/VO LUME] IN SERUM OR PLASMA 115 U/L 40 - 150 05/14 Specimen Type: SERUM No comment entered. Ordering Provider: WILLIAM ADDISON Report Released Date/Time: Oct 29, 2023 02:42 PM Reporting Lab: [facility] [place] [address] [address] Performing Lab: [facility] [place] [facility] [address] [address] [facility] [place] [facility] LIVER FUNCTION ASPARTATE AMINOTRANSF ERASE [ENZYMATIC ACTIVITY/VO LUME] IN SERUM OR PLASMA 25 U/L 5 - 34 05/14 Specimen Type: SERUM No comment entered. Ordering Provider: WILLIAM ADDISON Report Released Date/Time: Oct 29, 2023 02:42 PM Reporting Lab: [facility] [place] [address] [address] Performing Lab: [facility] [place] [place] [facility] [address] [address] [facility] [facility] LIVER FUNCTION ALANINE AMINOTRANSF ERASE [ENZYMATIC ACTIVITY/VO LUME] IN SERUM OR PLASMA 29 U/L 05/14 Specimen Type: SERUM No comment entered. Ordering Provider: WILLIAM ADDISON Report Released Date/Time: Oct 29, 2023 02:42 PM Reporting Lab: [facility] [place] [place] [address] [address] Performing Lab: [facility] [place] [address] [address] [facility] [facility] LIVER FUNCTION BILIRUBIN.T OTAL [MASS/VOLUM E] IN SERUM OR PLASMA 0.6 mg/dL 0.2 - 1.2 05/14 Specimen Type: SERUM No comment entered. Ordering Provider: WILLIAM ADDISON Report Released Date/Time: Oct 29, 2023 02:42 PM Reporting Lab: [facility] [place] [address] [address] Performing Lab: [facility] [place] [address] [address] [facility]ANRL WSTRN [place] [facility] PSA PROSTATE SPECIFIC AG [MASS/VOLUM E] IN SERUM OR PLASMA 0.63 ng/mL 0.00 - 4.00 10/28 Specimen Type: SERUM No comment entered. Ordering Provider: WILLIAM ADDISON Report Released Date/Time: October 16, 2023 10:28 AM Reporting Lab: [facility]RL [place] [place] [address] [address] Performing Lab: [facility] [place] [address] [address] [facility]IGANRGADSDEN REGIONAL MEDICAL CENTERN [facility]ITALUSE [facility] LIPID PANEL FASTING CHOLESTEROL [MASS/VOLUM E] IN SERUM OR PLASMA 200 mg/dL 10/28 H Specimen Type: SERUM No comment entered. Ordering Provider: WILLIAM ADDISON Report Released Date/Time: October 16, 2023 10:28 AM Reporting Lab: [facility]RL [place] [place] [address] [address] Performing Lab: [facility] [place] [address] [address] [facility]ANRL [facility]STRN [place] [facility] LIPID PANEL FASTING TRIGLYCERID E [MASS/VOLUM E] IN SERUM OR PLASMA 197 mg/dL 0 - 150 10/28 H Specimen Type: SERUM No comment entered. Ordering Provider: WILLIAM ADDISON Report Released Date/Time: October 16, 2023 10:28 AM Reporting Lab: [facility] [place] [place] [address] [address] Performing Lab: [facility]RL [place] [place] [facility] [address] [address] [facility] [place] [place] [facility] LIPID PANEL FASTING CHOLESTEROL IN LDL [MASS/VOLUM E] IN SERUM OR PLASMA BY CALCULATION 107 mg/dL 0 - 129 10/28 Specimen Type: SERUM No comment entered. Ordering Provider: WILLIAM ADDISON Report Released Date/Time: October 16, 2023 10:28 AM Reporting Lab: [facility] [place] [facility] [address] [address] Performing Lab: [facility] [place] [facility] [address] [address] [facility]RL [facility]STRN [place] [facility] LIPID PANEL FASTING CHOLESTEROL .TOTAL/CHOL ESTEROL IN HDL [MASS RATIO] IN SERUM OR PLASMA 3.7 10/28 Specimen Type: SERUM No comment entered. Ordering Provider: WILLIAM ADDISON Report Released Date/Time: October 16, 2023 10:28 AM Reporting Lab: [facility] [place] [facility] [address] [address] Performing Lab: [facility] [place] [facility] [address] [address] [facility]RL [facility]STRN [place] [facility] LIPID PANEL FASTING CHOLESTEROL IN HDL [MASS/VOLUM E] IN SERUM OR PLASMA 54 mg/dL 40 - 60 10/28 Specimen Type: SERUM No comment entered. Ordering Provider: WILLIAM ADDISON Report Released Date/Time: October 16, 2023 10:28 AM Reporting Lab: [facility] [place] [facility] [address] [address] Performing Lab: [facility] [place] [facility] [address] [address] [facility]RL [facility]N [place] [facility] BASIC METABOLIC PANEL (fasting) UREA NITROGEN [MASS/VOLUM E] IN SERUM OR PLASMA 25 mg/dL 7 - 25 10/28 Specimen Type: SERUM No comment entered. Ordering Provider: WILLIAM ADDISON Report Released Date/Time: October 16, 2023 10:28 AM Reporting Lab: [facility] [place] [facility] [address] [address] Performing Lab: [facility]ANRBULLOCK COUNTY HOSPITALTRN MASSUSEBLYTHED[facility] [address] [address] [facility]ANRBULLOCK COUNTY HOSPITALTRN [facility]ITALUSE [facility] BASIC METABOLIC PANEL (fasting) GLUCOSE [MASS/VOLUM E] IN SERUM OR PLASMA 106 mg/dL 65 - 100 10/28 H Specimen Type: SERUM No comment entered. Ordering Provider: WILLIAM ADDISON Report Released Date/Time: October 16, 2023 10:28 AM Reporting Lab: [facility]ANRBULLOCK COUNTY HOSPITALTRN [facility]SEBLYTHED[facility] [address] [address] Performing Lab: [facility] MICHIGANRGADSDEN REGIONAL MEDICAL CENTERN [address] [address] [facility] [facility] BASIC METABOLIC PANEL (fasting) SODIUM [MOLES/VOLU ME] IN SERUM OR PLASMA 138 mmol/L 135 - 145 10/28 Specimen Type: SERUM No comment entered. Ordering Provider: WILLIAM ADDISON Report Released Date/Time: October 16, 2023 10:28 AM Reporting Lab: [facility]ANRBULLOCK COUNTY HOSPITALTRN [facility]SEBLYTH[facility] [address] [address] Performing Lab: [facility] MICHIGANRL TRN [facility]ITALUSE[address] [address] [facility]ANRGADSDEN REGIONAL MEDICAL CENTERN [facility] BASIC METABOLIC PANEL (fasting) POTASSIUM [MOLES/VOLU ME] IN SERUM OR PLASMA 4.3 mmol/L 3.5 - 5.0 10/28 Specimen Type: SERUM No comment entered. Ordering Provider: WILLIAM ADDISON Report Released Date/Time: October 16, 2023 10:28 AM Reporting Lab: [facility] M[facility]ANRL TRN [address]SUSE[address] [address] Performing Lab: [facility]ANRBULLOCK COUNTY HOSPITALTRN [facility]ITALUSE[address] [address] [facility]ANRGADSDEN REGIONAL MEDICAL CENTERN [facility] BASIC METABOLIC PANEL (fasting) CHLORIDE [MOLES/VOLU ME] IN SERUM OR PLASMA 106 mmol/L 100 - 110 10/28 Specimen Type: SERUM No comment entered. Ordering Provider: WILLIAM ADDISON Report Released Date/Time: October 16, 2023 10:28 AM Reporting Lab: [facility] [place] [facility] [address] [address] Performing Lab: [facility] [place] [facility] [address] [address] [facility] [place] [facility] BASIC METABOLIC PANEL (fasting) CARBON DIOXIDE, TOTAL [MOLES/VOLU ME] IN SERUM OR PLASMA 24 meq/L 20 - 30 10/28 Specimen Type: SERUM No comment entered. Ordering Provider: WILLIAM ADDISON Report Released Date/Time: October 16, 2023 10:28 AM Reporting Lab: [facility] [place] [facility] [address] [address] Performing Lab: [facility] [address] [address] [facility] BASIC METABOLIC PANEL (fasting) CREATININE [MASS/VOLUM E] IN SERUM OR PLASMA 1.20 mg/dL 0.50 - 1.40 10/28 Specimen Type: SERUM No comment entered. Ordering Provider: WILLIAM ADDISON Report Released Date/Time: October 16, 2023 10:28 AM Reporting Lab: [facility] [place] [address] [address] Performing Lab: [facility] [place] [facility] [address] [address] [facility] BASIC METABOLIC PANEL (fasting) GLOMERULAR FILTRATION RATE/1.73 SQ M.PREDICTED [VOLUME RATE/AREA] IN SERUM, PLASMA OR BLOOD BY CREATININE- BASED FORMULA (CKD-EPI 2020) 68 mL/min 60 10/28 Specimen Type: SERUM No comment entered. Ordering Provider: WILLIAM ADDISON Report Released Date/Time: October 16, 2023 10:28 AM Reporting Lab: [facility] [place] [facility] [address] [address] Performing Lab: [place] [facility] [place] [address] [address] [facility] [place] [facility] [facility] LIPID PANEL FASTING CHOLESTEROL [MASS/VOLUM E] IN SERUM OR PLASMA 192 mg/dL 05/02 Specimen Type: SERUM No comment entered. Ordering Provider: RICK CORTES Report Released Date/Time: Apr 12, 2023 03:10 PM Reporting Lab: [facility] [place] [facility] [address] [address] Performing Lab: [facility] [place] [facility] [address] [address] [facility] [place] [facility] LIPID PANEL FASTING TRIGLYCERID E [MASS/VOLUM E] IN SERUM OR PLASMA 144 mg/dL 0 - 150 05/02 Specimen Type: SERUM No comment entered. Ordering Provider: RICK CORTES Report Released Date/Time: Apr 12, 2023 03:10 PM Reporting Lab: [facility] [place] [facility] [address] [address] Performing Lab: [facility] [place] [facility] [address] [address] [facility] [place] [facility] LIPID PANEL FASTING CHOLESTEROL IN LDL [MASS/VOLUM E] IN SERUM OR PLASMA BY CALCULATION 115 mg/dL 0 - 129 05/02 Specimen Type: SERUM No comment entered. Ordering Provider: RICK CORTES Report Released Date/Time: Apr 12, 2023 03:10 PM Reporting Lab: [facility] [place] [facility] [address] [address] Performing Lab: [facility] [place] [facility] [address] [address] [facility] [place] [facility] LIPID PANEL FASTING CHOLESTEROL .TOTAL/CHOL ESTEROL IN HDL [MASS RATIO] IN SERUM OR PLASMA 4.0 05/02 Specimen Type: SERUM No comment entered. Ordering Provider: RICK CORTES Report Released Date/Time: Apr 12, 2023 03:10 PM Reporting Lab: [facility] [place] [facility] [address] [address] Performing Lab: [facility] [place] [facility] [address] [address] [facility] [place] [facility] LIPID PANEL FASTING CHOLESTEROL IN HDL [MASS/VOLUM E] IN SERUM OR PLASMA 48 mg/dL 40 - 60 05/02 Specimen Type: SERUM No comment entered. Ordering Provider: RICK CORTES Report Released Date/Time: Apr 12, 2023 03:10 PM Reporting Lab: [facility] [place] [facility] [address] [address] Performing Lab: [facility] [place] [facility] [address] [address] [facility] [place] [facility] BASIC METABOLIC PANEL (fasting) UREA NITROGEN [MASS/VOLUM E] IN SERUM OR PLASMA 24 mg/dL 7 - 25 05/02 Specimen Type: SERUM No comment entered. Ordering Provider: RICK CORTES Report Released Date/Time: Apr 12, 2023 03:10 PM Reporting Lab: [facility] [place] [address] [address] Performing Lab: [facility] [place] [address] [address] [facility] [place] [facility] BASIC METABOLIC PANEL (fasting) GLUCOSE [MASS/VOLUM E] IN SERUM OR PLASMA 102 mg/dL 65 - 100 05/02 H Specimen Type: SERUM No comment entered. Ordering Provider: RICK CORTES Report Released Date/Time: Apr 12, 2023 03:10 PM Reporting Lab: [facility] [place] [address] [address] Performing Lab: [facility] [place] [address] [address] [facility] [place] [facility] BASIC METABOLIC PANEL (fasting) SODIUM [MOLES/VOLU ME] IN SERUM OR PLASMA 140 mmol/L 135 - 145 05/02 Specimen Type: SERUM No comment entered. Ordering Provider: RICK CORTES Report Released Date/Time: Apr 12, 2023 03:10 PM Reporting Lab: [facility] [place] [address] [address] Performing Lab: [facility] [place] [address] [address] [facility] [place] [facility] BASIC METABOLIC PANEL (fasting) POTASSIUM [MOLES/VOLU ME] IN SERUM OR PLASMA 4.8 mmol/L 3.5 - 5.0 05/02 Specimen Type: SERUM No comment entered. Ordering Provider: RICK CORTES Report Released Date/Time: Apr 12, 2023 03:10 PM Reporting Lab: [facility] [place] [facility] [address] [address] Performing Lab: [facility] [place] [facility] [address] [address] [facility] [place] [facility] BASIC METABOLIC PANEL (fasting) CHLORIDE [MOLES/VOLU ME] IN SERUM OR PLASMA 104 mmol/L 100 - 110 05/02 Specimen Type: SERUM No comment entered. Ordering Provider: RICK CORTES Report Released Date/Time: Apr 12, 2023 03:10 PM Reporting Lab: [facility] [place] [facility] [address] [address] Performing Lab: [facility] [place] [facility] [address] [address] [facility] [place] [facility] BASIC METABOLIC PANEL (fasting) CARBON DIOXIDE, TOTAL [MOLES/VOLU ME] IN SERUM OR PLASMA 26 meq/L 20 - 30 05/02 Specimen Type: SERUM No comment entered. Ordering Provider: RICK CORTES Report Released Date/Time: Apr 12, 2023 03:10 PM Reporting Lab: [facility] [place] [facility] [address] [address] Performing Lab: [facility] [place] [facility] [address] [address] [facility] [place] [facility] BASIC METABOLIC PANEL (fasting) CREATININE [MASS/VOLUM E] IN SERUM OR PLASMA 1.23 mg/dL 0.50 - 1.40 05/02 Specimen Type: SERUM No comment entered. Ordering Provider: RICK CORTES Report Released Date/Time: Apr 12, 2023 03:10 PM Reporting Lab: [facility] [place] [facility] [address] [address] Performing Lab: [facility] [place] [facility] [address] [address] [facility] [place] [facility] BASIC METABOLIC PANEL (fasting) GLOMERULAR FILTRATION RATE/1.73 SQ M.PREDICTED [VOLUME RATE/AREA] IN SERUM, PLASMA OR BLOOD BY CREATININE- BASED FORMULA (CKD-EPI 2020) 66 mL/min 60 05/02 Specimen Type: SERUM No comment entered. Ordering Provider: RICK CORTES Report Released Date/Time: Apr 12, 2023 03:10 PM Reporting Lab: [facility] [address] [address] Performing Lab: [facility] [address] [address] [facility] BASIC METABOLIC PANEL (fasting) UREA NITROGEN [MASS/VOLUM E] IN SERUM OR PLASMA 19 mg/dL 7 - 25 10/10 Specimen Type: SERUM No comment entered. Ordering Provider: RICK CORTES Report Released Date/Time: Aug 16, 2022 09:42 AM Reporting Lab: [facility] [place] [facility] [address] [address] Performing Lab: [facility] [address] [address] [facility]ITAL[facility] BASIC METABOLIC PANEL (fasting) GLUCOSE [MASS/VOLUM E] IN SERUM OR PLASMA 98 mg/dL 65 - 100 10/10 Specimen Type: SERUM No comment entered. Ordering Provider: RICK CORTES Report Released Date/Time: Aug 16, 2022 09:42 AM Reporting Lab: [facility] [place] [facility] [address] [address] Performing Lab: [facility] [address] [address] [facility] BASIC METABOLIC PANEL (fasting) SODIUM [MOLES/VOLU ME] IN SERUM OR PLASMA 138 mmol/L 135 - 145 10/10 Specimen Type: SERUM No comment entered. Ordering Provider: RICK CORTES Report Released Date/Time: Aug 16, 2022 09:42 AM Reporting Lab: [facility] [place] [facility] [address] [address] Performing Lab: [facility] [place] [facility] [address] [address] [facility] [place] [facility] BASIC METABOLIC PANEL (fasting) POTASSIUM [MOLES/VOLU ME] IN SERUM OR PLASMA 4.5 mmol/L 3.5 - 5.0 10/10 Specimen Type: SERUM No comment entered. Ordering Provider: RICK CORTES Report Released Date/Time: Aug 16, 2022 09:42 AM Reporting Lab: [facility] [place] [facility] [address] [address] Performing Lab: [facility] [place] [facility] [address] [address] [facility] [place] [place] [facility] BASIC METABOLIC PANEL (fasting) CHLORIDE [MOLES/VOLU ME] IN SERUM OR PLASMA 105 mmol/L 100 - 110 10/10 Specimen Type: SERUM No comment entered. Ordering Provider: RICK CORTES Report Released Date/Time: Aug 16, 2022 09:42 AM Reporting Lab: [facility] [place] [address] [address] Performing Lab: [facility] [place] [facility] [address] [address] [facility] [place] [facility] BASIC METABOLIC PANEL (fasting) CARBON DIOXIDE, TOTAL [MOLES/VOLU ME] IN SERUM OR PLASMA 23 meq/L 20 - 30 10/10 Specimen Type: SERUM No comment entered. Ordering Provider: RICK CORTES Report Released Date/Time: Aug 16, 2022 09:42 AM Reporting Lab: [facility] [place] [facility] [address] [address] Performing Lab: [facility] [place] [facility] [address] [address] [facility] BASIC METABOLIC PANEL (fasting) CREATININE [MASS/VOLUM E] IN SERUM OR PLASMA 1.03 mg/dL 0.50 - 1.40 10/10 Specimen Type: SERUM No comment entered. Ordering Provider: RICK CORTES Report Released Date/Time: Aug 16, 2022 09:42 AM Reporting Lab: [facility] [place] [facility] [address] [address] Performing Lab: [facility] [address] [address] [facility]N [facility]ITAL[facility] BASIC METABOLIC PANEL (fasting) GLOMERULAR FILTRATION RATE/1.73 SQ M.PREDICTED [VOLUME RATE/AREA] IN SERUM, PLASMA OR BLOOD BY CREATININE- BASED FORMULA (CKD-EPI) 82 mL/min 60 10/10 Specimen Type: SERUM No comment entered. Ordering Provider: RICK CORTES Report Released Date/Time: Aug 16, 2022 09:42 AM Reporting Lab: [facility] [place] [place] [facility] [address] [address] Performing Lab: [facility] [address] [address] [facility] LIPID PANEL FASTING CHOLESTEROL [MASS/VOLUM E] IN SERUM OR PLASMA 201 mg/dL 7 - 199 10/10 H Specimen Type: SERUM No comment entered. Ordering Provider: RICK CORTES Report Released Date/Time: Aug 16, 2022 09:42 AM Reporting Lab: [facility] [place] [facility] [address] [address] Performing Lab: [facility] [address] [address] [facility] LIPID PANEL FASTING TRIGLYCERID E [MASS/VOLUM E] IN SERUM OR PLASMA 191 mg/dL 0 - 150 10/10 H Specimen Type: SERUM No comment entered. Ordering Provider: RICK CORTES Report Released Date/Time: Aug 16, 2022 09:42 AM Reporting Lab: [facility] [place] [facility] [address] [address] Performing Lab: [facility] [place] [facility] [address] [address] [facility] [place] [facility] LIPID PANEL FASTING CHOLESTEROL IN LDL [MASS/VOLUM E] IN SERUM OR PLASMA BY CALCULATION 107 mg/dL 0 - 129 10/10 Specimen Type: SERUM No comment entered. Ordering Provider: RICK CORTES Report Released Date/Time: Aug 16, 2022 09:42 AM Reporting Lab: [facility] [place] [facility] [address] [address] Performing Lab: [facility] [place] [facility] [address] [address] [facility] [place] [place] [facility] LIPID PANEL FASTING CHOLESTEROL .TOTAL/CHOL ESTEROL IN HDL [MASS RATIO] IN SERUM OR PLASMA 3.6 10/10 Specimen Type: SERUM No comment entered. Ordering Provider: RICK CORTES Report Released Date/Time: Aug 16, 2022 09:42 AM Reporting Lab: [facility] [place] [facility] [address] [address] Performing Lab: [facility] [place] [facility] [address] [address] [facility] [place] [facility] LIPID PANEL FASTING CHOLESTEROL IN HDL [MASS/VOLUM E] IN SERUM OR PLASMA 56 mg/dL 40 - 60 10/10 Specimen Type: SERUM No comment entered. Ordering Provider: RICK CORTES Report Released Date/Time: Aug 16, 2022 09:42 AM Reporting Lab: [facility] [place] [facility] [address] [address] Performing Lab: [facility] [place] [facility] [address] [address] [facility] [place] [facility] Vital Signs Combined list of inpatient [...] [facility] [place] [facility] En[facility] [id number] 04/03 [facility] [place] [place] En[facility] [id number] 04/03 [facility] [place] [place] En[facility] [id number] 04/23 [facility] [place] [place] OFF[facility] O/P EST MOD 30-39 MIN [id number] Diagnos is: ICD-10- CM M54.50 Low back pain, unspeci fied AHMED,MOHA MMED JAWED 05/02 [facility] [place] En[facility] [id number] 07/09 [facility] [place] [place] En[facility] [id number] 10/07 [facility] [place] [place] En[facility] [id number] 10/28 [facility] [place] [place] [facility] OFFICE O/P EST MOD 30 MIN [id number] Diagnos is: ICD-10- CM G47.30 Sleep apnea, unspeci fied FURCOLO,TI NA 10/28 [facility] [place] En[facility] [id number] 10/29 [facility] [place] En[facility] [id number] 11/14 [facility] [place] En[facility] [id number] 04/05 [facility] [place] En[facility] [id number] 04/10 [facility] [place] En[facility] [id number] 05/01 [facility] [place] [place] [facility] OFFICE O/P EST MOD 30 MIN [id number] Diagnos is: ICD-10- CM G47.30 Sleep apnea, unspeci fied FURCOLO,TI NA 05/14 [facility] En[facility] [id number] 05/22 [facility] [place] En[facility] [id number] 07/14 [facility] [place] [place] En[facility] [id number] 07/16 [facility] [place] [facility] Social History Combined list of available smoking, tobacco, and other social history from Department of Defense and Veterans Affairs facilities. Social History Type Response Date Comment Source Tobacco smoking status [facility] VA-TOBACCO NEVER USED 10/29/2023 [facility] [place] [facility] History of tobacco use VA-TOBACCO NEVER USED 10/16/2022 [facility] [place] History of tobacco use VA-TOBACCO NEVER USED 11/13/2019 [facility] [place] [facility] History of tobacco use VA-TOBACCO NEVER USED 05/23/2018 [facility] History of tobacco use LIFETIME NON-TOBACCO USER 11/22/2017 [facility] History [facility] tobacco use LIFETIME NON-TOBACCO USER 11/05/2016 [facility] History of tobacco use QUIT TOBACCO USE > 7 YEARS AGO 08/12/2015 quit 40 years ago [facility] History of tobacco use LIFETIME NON-TOBACCO USER 03/19/2012 [facility] History of tobacco use V7-TOBACCO USE NONE IN > 7 YEARS 01/22/2012 [facility] History of tobacco use V7-LIFETIME NON/TOBACCO USER 11/08/2011 [facility] History of tobacco use V7-TOBACCO USE NONE IN > 7 YEARS 08/01/2010 [facility] History of tobacco use V7-LIFETIME NON/TOBACCO USER 05/04/2010 [facility] History of tobacco use V7-TOBACCO USE NONE IN > 7 YEARS 11/07/2009 [facility] History of tobacco use QUIT TOBACCO >7 YEARS AGO 06/24/2008 [facility] History of tobacco use HF V9 LIFETIME NON-SMOKER 04/16/2005 [facility] History of tobacco use HF V9 LIFETIME NON-SMOKER 10/20/2003 [facility] History of tobacco use HF V9 CURRENT NON-SMOKER 01/15/2003 [facility] Plan of Care List of future care activities from [facility] facilities. Additional future care activities may be listed in the Assessment and Plan section. Date/Time Care Activity Care Activity Detail Facili ty 11/16/2024 AMBULATORY - MEDICINE AMBULATORY - MEDICI NE [facility] Advance Directives List of completed, amended, or rescinded Advance Directives on record at [facility] facilities. An actual copy of the Directive is not included. Date Advance Directive Provider Source 01/22/2012 ADVANCE DIRECTIVE DISCUSSION MIGUEL CEE CIA [facility] 11/07/2009 ADVANCE DIRECTIVE DISCUSSION EMANI WINSTON [facility]
--- OUTSIDE RECORDS SUMMARY | 2024-08-27 14:29 | XMS_ITS | Encounter Summary ---
Author Name [facility] [place] Organization [facility] [place] Address [address] [place] [address] Care Team Providers Care Crm Analyst Name Role Phone ISAI ADDISON Primary Care [...] Patient's Relationship to Policy [place] [facility] ORGANIZAT ION FED-H MO Jul 09, 2005 [id number] Arlene PAINTER EORGE PATIENT [facility] POINT OF SERVICE [place] EM[place]O GALE Mar 05, 2010 [id number] Arlene PAINTER EORGE PATIENT AETNA RX BIN [id number] PRESCRIPT ION [place] EM[place]O ALLISON Jul 25, 2008 [id number] [phone] Arlene PAINTER EORGE PATIENT [facility]* [facility] CE ORGANIZ [place] EMPLO ALLISON May 27, 2006 [id number] Arlene PAINTER EORGE PATIENT [place] BS [place] BLUECARD PREFERRED PROVIDER ORGANIZAT ION (PPO) [facility] [place] Sep 04, 2005 [id number] Arlene PAINTER EORGE PATIENT [employer] PRESCRIPT ION BAY10 00SEC OND Aug 25, 2012 [id number] SECOND [id number] rAlene PAINTER EORGE PATIENT [employer] [id number] PRESCRIPT ION COMMO [facility] Jul 11, 2016 [id number] SECOND [id number] [phone] Arlene PAINTER EORGE PATIENT [employer] ([id number]) PRESCRIPT ION DHRMM EDDBA SE Nov 24, 2004 DHRMMED DBASE [id number] Arlene PAINTER EORGE PATIENT [facility] CE ORGANIZAT ION [facility] STATE AGETX Y Nov 24, 2017 [id number] Arlene PAINTER EORGE PATIENT [facility] POINT OF SERVICE [facility] Jul 11, 2016 [id number] [phone] Arlene PAINTERRGE PATIENT [facility] CE ORGANIZ COMMW [facility] May 27, 2015 [id number] Arlene PAINTER EORGE PATIENT [facility] ORGANIZAT ION [facility] Jul 25, 2014 [id number] Arlene PAINTER EORGE PATIENT [facility] CE ORGANIZAT ION [facility] Aug 25, 2012 [id number] Arlene PAINTER PATIENT Selected Encounter This section includes the information on record at [place] for the Encounter. Date/Time Encounter Type Encounter Description Reason Provider Source Oct 29, 2023 02:00 PM OFFICE O/P EST MOD 30 MIN PRIMARY CARE/MEDICINE ICD-10-CM G47.30 Sleep apnea, unspecified FURCOLO,ISAI E Encounter Template Text not used by [place] Assessments - Encounter Diagnoses This section includes the primary and secondary diagnoses documented for the Encounter. Date/Time Primary/Secondary Diagnosis Diagnosis Name Provider Source Oct 29, 2023 02:41 PM PRIMARY Sleep apnea, unspecified FURCOLO,ISAI [place] [facility] [place] [facility] Oct 29, 2023 02:41 PM SECONDARY Essential (primary) hypertension [place] [facility] [place] [facility] Oct 29, 2023 02:41 PM SECONDARY Low back pain, unspecified FURCOLO,ISAI [place] [facility] [place] [facility] Oct 29, 2023 02:41 PM SECONDARY Pure hypercholesterolem ia, unspecified FURCOLO,ISAI [place] [facility] [place] [facility] Lab Results: +/- 30 days of the encounter This section includes the Chemistry and Hematology Lab Results on record with [place] for the patient. Radiology Reports and Pathology Reports are provided separately, in subsequent sections. Lab Results This section contains the Chemistry/Hematology Results that were resulted 30 days before or 30 daysafter the date of the Encounter. Date/Time Source Result Type Result - Unit Interpretation Reference Range Comment Oct 29, 2023 02:57 PM [facility] LIPID PANEL FASTING Specimen Type: SERUM No comment entered. Ordering Provider: ISAI ADDISON Report Released Date/Time: October 16, 2023 10:28 AM Reporting Lab: [facility] [address] [address] Performing Lab: [facility] [address] [address] CHOLESTEROL 200 mg/dL H TRIGLYCERIDE 197 mg/dL H 0-150 LDL calculated 107 mg/dL 0-129 CHOL/HDL 3.7 HDL CHOLESTEROL 54 mg/dL 40-60 Oct 29, 2023 02:57 PM [facility] PSA Specimen Type: SERUM No comment entered. Ordering Provider: ISAI ADDISON Report Released Date/Time: October 16, 2023 10:28 AM Reporting Lab: [facility] [address] [address] Performing Lab: [facility]ENTERUSE[address] [address] PSA 0.63 ng/mL 0.00-4.00 Oct 29, 2023 02:57 PM [facility] BASIC METABOLIC PANEL (fasting) Specimen Type: SERUM No comment entered. Ordering Provider: ISAI ADDISON Report Released Date/Time: October 16, 2023 10:28 AM Reporting Lab: [place] [facility] [place] [facility] [address] [address] Performing Lab: [place] [facility] [place] [facility] [address] [address] UREA NITROGEN 25 mg/dL 7-25 GLUCOSE 106 mg/dL H 65-100 SODIUM 138 mmol/L 135-145 POTASSIUM 4.3 mmol/L 3.5-5.0 CHLORIDE 106 mmol/L 100-110 CO2 24 meq/L 20-30 CREATININE, Serum 1.20 mg/dL 0.50-1.40 eGFR(CKD-EPI 2020) 68 mL/min >60 Vital Signs: All taken on the encounter date This section contains inpatient and outpatient Vital Signs collected on the date of the Encounter. Date/Time Temperature Pulse Blood Pressure Respiratory Rate SP02 Pain Height Weight Body Mass Index Source Oct 29, 2023 01:50 PM 98.2 81 109/77 16 96 3 200 27 [place] [facility] Social History: Smoking Status (Most current) and Tobacco Use (All prior to encounter date) This section includes the most current, and the historical, smoking and tobacco- related health factors from the [place] facility where the Encounter took place. Current Smoking Status This section includes the most current smoking, or tobacco-related health factor, from the [place] facility where the Encounter took place. Date/Time Current Smoking Status Comment [facility] Oct 29, 2023 02:00 PM VA-TOBACCO NEVER USED [place] [facility] Tobacco Use History This section includes a history of the smoking, or tobacco-related health factors, that were collected on or before the date of the Encounter. The data comes from the [place] facility where the Encounter took place. Date/Time Smoking Status/Tobac co Use Comment Facility October 16, 2022 02:00 PM VA-TOBACCO NEVER USED [facility] [place] [facility] Nov 13, 2019 01:28 PM VA-TOBACCO NEVER USED [facility] [place] [facility] May 23, 2018 03:31 PM VA-TOBACCO NEVER USED [facility] [place] [facility] Nov 22, 2017 02:56 PM LIFETIME NON-TOBACCO USER [place] [facility] [place] [facility] Nov 05, 2016 02:50 PM LIFETIME NON-TOBACCO USER [facility] Aug 12, 2015 03:21 PM QUIT TOBACCO USE > 7 YEARS AGO quit 40 years ago [facility] Mar 19, 2012 11:16 AM LIFETIME NON-TOBACCO USER [facility] Advance Directives: All historical and current Section Date Range: From patient's date of to the date document was created. This section includes ALL of a patient's completed or amended [place] Advance and Rescinded Directives. The entries below indicate that a directive exists for the patient, but an actual copy is not included with this document. The data comes from all [place] facilities. Date Advance Directives Provider Source Jan 22, 2012 ADVANCE DIRECTIVE DISCUSSION MIGUEL CEE [facility] Nov 07, 2009 ADVANCE DIRECTIVE DISCUSSION EMANI WINSTON [facility] Encounter Notes: All associated encounter notes [...] Community Primary Care Provider: Dr. Effie Fontenot [facility] Specialists: Community Specialists: pain management - [place] [facility]- Dr. 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 Allergic rhinitis 2. Low back pain (SNOMED CT 071102604) 3. Benign essential hypertension (SNOMED CT 0820262) 4. Hypercholesterolemia (SNOMED CT 06098702) 5. 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 might benefit from whole health- made referral [...] from APR 10, 2024. Comment: due 09/2032 /yanick ADDISON D.O. PHYSICIAN Signed: 04/10/2024 15:48 ISAI ADDISON [place] [facility] [place] [facility] Oct 29, 2023 02:04 PM PREVENTIVE MEDICINE NURSING NOTE: LOCAL TITLE: CLINICAL REMINDERS/NURSING STANDARD TITLE: PREVENTIVE MEDICINE NURSING NOTE DATE OF NOTE: OCT 29, 2023@14:04 ENTRY DATE: OCT 29, 2023@14:04:43 AUTHOR: FITO CARDONA EXP COSIGNER: URGENCY: STATUS: COMPLETED Advance Directive Screen AD: Patient does not have a completed advance directive on file at any facility, [facility] or outside. S/he is not interested in completing one at this time. The patient received education about Advance Directives and written notification of his/her rights. Comment: BLANK FORM PROVIDED TO PER REQUEST Suicide Screen: C-SSRS Screening [place] Suicide Severity Rating Scale (C-SSRS) screener 1. [...] results. PER COLONOSCOPY DONE IN 2022 AT [place], FAX SENT WITH THE REQUEST OF RESULTS, [...] Practical Nurse Signed: 10/29/2023 14:07 FITO CARDONA [facility]
== END 2024-08-27 14:03 | disposition home or self-care (01) ==
LOC: HO.PMC 13:17
PROVIDERS: PCP Internal Medicine; Visit Provider Anesthesiology
DX: M96.1 Postlaminectomy syndrome, not elsewhere classified (principal); G89.4 Chronic pain syndrome; M47.815 Spondylosis without myelopathy or radiculopathy, thoracolumbar region; Z96.89 Presence of other specified functional implants
CPT/HCPCS: 99213

== ENCOUNTER 2024-10-20 06:57 | Outpatient (REF) | payer OTHER, SELFPAY ==
--- NOTE | ~2024-10-20 | FL_ITS ---
EXAMINATION: FL GUIDANCE ONLY HISTORY: M47.815 - Spondylosis without myelopathy or radiculopathy, thoracolumbar... COMPARISON: None available. TECHNIQUE: Fluoroscopy time: 0.6 minutes. Cumulative Dose: 11.5 mGy. DAP: 0.160 mGym2 Images: 3. FINDINGS: Fluoroscopic spot films of the thoracic spine in the AP projection demonstrate needles and contrast material in the regions of multiple bilateral costovertebral junctions. FL/FL guidance in treatment room IMPRESSION: Fluoroscopy during procedure. Please see procedure report for additional information. Electronically signed by: Rodrigue Mora MD 10/20/2024 03:50 PM EDT
--- OUTSIDE RECORDS SUMMARY | 2024-10-20 07:00 | XMS_ITS | Clinical Summary ---
Author Organization [facility] Address [address] [place] [address] Care Team Providers Care Band Singer Name Role Phone Trupti Camacho MD Primary Care Provider [phone] Allergies Active Allergy Reactions Criticality Noted Date [...] this topic Medical Devices Implanted Type Area Ships Or Barges Loader Device Identifier Shelf Expiration Date Model / Serial / Lot Graft Putty Dbm [facility] - [id number] - [id number] Implanted:Qty: 1 on 08/01/2016 by Osvaldo Pal MD at [facility] and Med Anterior: Spine Lumbar TISSUENET 09/07/2017 VX-EP5 / [id number] / Component Cage Medium [id number] Degree [place] - [id number] - [id number] Implanted:Qty: 1 on 08/01/2016 by Osvaldo Pal MD at [facility] and Med Anterior: Spine Lumbar [employer] 376.513 / / Screw 5.5x30 Variable - [id number] - [id number] Implanted:Qty: 3 on 08/01/2016 by Osvaldo Pal MD at [facility] and Med Anterior: Spine Lumbar [employer] 176.230 / / Advance Directives For more information, please contact: [phone] Latest Code Status on File Code Status Date Activated Date Inactivated Comments Full Code 08/01/2016 8:11 AM 08/04/2016 12:12 AM This code status was ascertained in the following way: patient's wishes. Care Teams Band Singer Relationship Specialty Start Date End Date Trupti Camacho MD [address] [place] [address] [phone] PCP - General Internal Medicine 05/01/16
== END 2024-10-20 06:58 | disposition home or self-care (01) ==
LOC: CF 06:57
PROVIDERS: Visit Provider Anesthesiology
DX: M96.1 Postlaminectomy syndrome, not elsewhere classified (principal); G89.4 Chronic pain syndrome; T85.192A Other mechanical complication of implanted electronic neurostimulator of spinal cord electrode (lead), initial encounter; M47.815 Spondylosis without myelopathy or radiculopathy, thoracolumbar region; Z96.89 Presence of other specified functional implants
CPT/HCPCS: 64490; 64491; J2003; J2795; Q9967

== ENCOUNTER 2024-10-20 13:20 | Outpatient (AMB) | payer OTHER, SELFPAY ==
[2024-10-20 13:52] VITALS: BP 110/70; PULSE 74; RESP 18; O2SAT 97
--- NOTE | 2024-10-20 13:52 | MHC.OFFVIS ---
Vital Signs 10/20/24 13:52 10/20/24 14:59 Weight 205 lb BP 110/70 136/88 Blood Pressure Location Lt brachial Lt brachial Position Sitting Respiration 18 Pulse 74 61 Pulse Source Pulse Oximeter Pulse Oximeter Pulse Oximetry (%) 97 97 Oxygen Delivery Method Room Air Room Air Intake Visit Reasons: BILATERAL DIAGNOSTIC T11, T12, L1 MBB Vending Stand Supervisor Required: No Allergies opiods Adverse Reaction (Uncoded 08/27/24 13:26) itching, nausea PFSH Medical History On beta fareed at home PVCs (premature ventricular contractions) Presence of intrathecal pump Chronic pain syndrome Postlaminectomy syndrome Premature atrial contraction Otitis externa due to herpes zoster NOEMY (obstructive sleep apnea) Malignant essential hypertension Lumbar radiculopathy Low back pain Irritable bowel Insomnia Impotence of organic origin Hypertensive disorder Hypercholesteremia Depressive disorder Bicuspid aortic valve Anxiety Anemia Allergic rhinitis Surgical History History of back surgery History of cystoscopy History of transurethral resection of prostate Social History Patient Tobacco Use Status: Never used Tobacco Physical Exam Vital Signs: Last Vital Signs Pulse 61 10/20/24 14:59 Resp 18 10/20/24 13:52 BP 136/88 10/20/24 14:59 Pulse Ox 97 10/20/24 14:59 Oxygen Delivery Method Room Air 10/20/24 14:59 Assessment & Plan Assessment & Plan (1) Postlaminectomy syndrome: Code(s): M96.1 - Postlaminectomy syndrome, not elsewhere classified Category: Medical (2) Spinal cord stimulator status: Code(s): Z96.89 - Presence of other specified functional implants Category: Medical (3) Chronic pain syndrome: Code(s): G89.4 - Chronic pain syndrome Category: Medical (4) Spinal cord stimulator dysfunction: Code(s): T85.192A - Other mechanical complication of implanted electronic neurostimulator of spinal cord electrode (lead), initial encounter Category: Medical (5) 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 ? ?Informed consent was explained to the patient. All questions were explained and? answered.? The patient was taken inside the operating room where she was positioned prone on the operating table. Time-out was performed delineating correct site, side, the nature of the procedure, patient's allergy, . All operating room staff was participating in OR time-out procedure. ? ? The lower back was prepped with ChloraPrep and draped with sterile towels.? C-arm was brought over the operating field and sq picture of T10-T11 T12 AREA were delineated on the screen.? Point of interest were delineated as most superior and most lateral points of the transfers processes of the aforementioned vertebras.? The projection of the point of interest to the skin were injected with the small amount of local anesthetic lidocaine 2% mixed with ropivacaine 0.5% 1-1 approcimately 1 cc.? After that 22 gauge 3.5 inch spinal needle was driven sequentially to the points of interest in tunnel vision fashion. After needles gently contacted the bone at the point of interests the needle was injected with small amount of the contrast.? The injection of the contrast did not demonstrate any intravascular, intrapleural or intrathecal spread of the contrast.? After that injection of the? ropivacaine 0.5%-1cc was performed at each needle location.? ?after that the needles were removed and Bandaids were applied. ? Upon completion of the injections? needle was? removed and sterile Band-Aids were applied.? The patient tolerated procedure very well. 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
[2024-10-20 14:59] VITALS: BP 136/88; PULSE 61; O2SAT 97
== END 2024-10-20 15:02 | disposition home or self-care (01) ==
LOC: HO.PMCPRC 13:20
PROVIDERS: PCP Internal Medicine; Visit Provider Anesthesiology
DX: G89.4 Chronic pain syndrome (principal); M96.1 Postlaminectomy syndrome, not elsewhere classified; T85.192A Other mechanical complication of implanted electronic neurostimulator of spinal cord electrode (lead), initial encounter; M47.815 Spondylosis without myelopathy or radiculopathy, thoracolumbar region; Z96.89 Presence of other specified functional implants
CPT/HCPCS: 64490; 64491

== ENCOUNTER 2024-10-23 14:41 | Outpatient (AMB) | payer OTHER, SELFPAY ==
--- OUTSIDE RECORDS SUMMARY | 2024-10-23 14:44 | XMS_ITS | Clinical Summary ---
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 Name Role Phone Trupti Camacho MD Primary Care Provider [phone] Allergies Active Allergy Reactions Criticality Noted Date [...] this topic Medical Devices Implanted Type Area Barge Pilot Device Identifier Shelf Expiration Date Model / Serial / Lot Graft Putty Dbm [facility] - [id number] - [id number] Implanted:Qty: 1 on 08/01/2016 by Osvaldo Pal MD at [facility] and Med Anterior: Spine Lumbar TISSUENET 09/07/2017 VX-[id number] / [id number] / Component Cage Medium [id number] Degree [place] - [id number] - [id number] Implanted:Qty: 1 on 08/01/2016 by Osvaldo Pal MD at [facility] and Med Anterior: Spine Lumbar [employer] 376.513 / / Screw 5.5x30 Variable - [id number] - [id number] Implanted:Qty: 3 on 08/01/2016 by Osvaldo Pal MD at [facility] and Med Anterior: Spine Lumbar [employer] 176.230 / / Advance Directives For more information, please contact: [phone] Latest Code Status on File Code Status Date Activated Date Inactivated Comments Full Code 08/01/2016 8:11 AM 08/04/2016 12:12 AM This code status was ascertained in the following way: patient's wishes. Care Teams Trimming Machine Set Up Operator Relationship Specialty Start Date End Date Trupti Camacho MD [address] [place] [address] [phone] PCP - General Internal Medicine 05/01/16
--- NOTE | 2024-10-23 14:50 | MHC.OFFVIS ---
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 The pain is longstanding and dates back to a vertebral fracture approximately 40 years ago at the L5-S1 level. This has led to the gradual development of degenerative changes and subsequent lumbar spine fusion performed in 2017. Despite a successful fusion surgery that has stabilized the lower spine, the patient has experienced increased pain in the thoracic region due to stress transfer. Recent management included bilateral diagnostic T10-T11 T12 medial branch blocks, which were performed three days ago. These blocks have provided the patient with significant pain relief, reported as 70% improved pain status. Previously, the patient underwent spinal injections which offered temporary relief. He notes that post-surgical redistribution of stress along the spine may have exacerbated the upper thoracic pain. Currently, the patient is considering options for sustained pain management while remaining cautious about interventions due to potential structural consequences. - Onset: Chronic back pain following a vertebral fracture 40 years ago - Quality: Moderate to severe, characterized by persistent discomfort and interference with daily activities - Primary Location: Thoracic region - Radiation: Potentially lower towards lumbar - Exacerbating Factors: Physical activity leading to increased spinal stress - Relieving Factors: Diagnostic medial branch blocks, past injections - Interference: Limitations with activities of daily living due to pain - Affect: Pain impacts daily activities and has been a longstanding issue - Analgesia: Reported 70% pain relief with recent medial branch blocks; previously responded well to spinal injections - Adverse Effects: Mild trauma from needle insertion post-blocks noted - Activities of Daily Living: Pain significantly affects ability to perform routine activities comfortably - Aberrant Drug Related Behaviors: Not reported [facility] Medical History On beta fareed at home PVCs (premature ventricular contractions) Presence of intrathecal pump Chronic pain syndrome Postlaminectomy syndrome Premature atrial contraction Otitis externa due to herpes zoster NOEMY (obstructive sleep apnea) Malignant essential hypertension Lumbar radiculopathy Low back pain Irritable bowel Insomnia Impotence of organic origin Hypertensive disorder Hypercholesteremia Depressive disorder Bicuspid aortic valve Anxiety Anemia Allergic rhinitis Surgical History History of back surgery History of cystoscopy History of transurethral resection of prostate Social History Patient Tobacco Use Status: Never used Tobacco Review of Systems Const Details: - Musculoskeletal: Reports significant upper thoracic back pain; improved post-medial branch blocks Physical Exam Vital Signs: Last Vital Signs Pulse 72 10/23/24 14:55 BP 139/90 H 10/23/24 14:55 Pulse Ox 100 10/23/24 14:55 Oxygen Delivery Method Room Air 10/23/24 14:55 BMI result Body Mass Index 27.2 General: awake, alert, oriented. Answers questions appropriately. Fully engaged in examination. Skin: warm, dry, intact HEENT: Normocephalic. Hearing intact. Cardiac: External chest normal in appearance. Respiratory: No cough, audible wheezing or stridor. Abdomen: without gross distension. MS: No obvious swelling or deformities. Able to transition from sit to stand unassisted. Ambulates with bilaterally normal heel strike and toe off Neurological: Oriented to person, place, time and situation. Thought process intact. No gait abnormalities appreciated. Psychiatric: Appropriate mood and affect. Good judgment and insight. 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 Future management options discussed include repeating the blocks with steroids, exploring temporary nerve stimulation, and initiating exercises aimed at strengthening paraspinal muscles. Emphasizing informed decision-making, the patient was encouraged to contemplate the options and communicate back for any subsequent interventions they choose. I discussed with the patient the outcomes and potential next steps following the recent diagnostic medial branch blocks, noting the significant improvement in pain relief. The benefits and risks of steroid injections were covered, noting possible adverse effects on bone health. We explored the use of a temporary nerve stimulator, given their previous experience with similar devices. Additionally, I emphasized the importance of strengthening exercises for long-term management. Discussion included the potential for a permanent solution with peripheral nerve stimulators. Discussed at length sprint peripheral nerve stimulator device. He was given a pamphlet to review at home. Is not ready to proceed at this time but will follow up with us in 1-2 weeks if ready to proceed with the procedure. The patient acknowledged understanding of the information and expressed the need for contemplation before proceeding. Patient was informed and verbally consented to the use of an ambient scribe for clinic note documentation during this visit. Patient Instructions: - Consider various pain management options as discussed. - [facility] - Think about whether you'd like to proceed with planned treatments, such as repeating injections or temporary nerve stimulation. - Call us in two weeks with your decision or follow-up questions. - Maintain awareness of activities that may increase back pain until a treatment decision is made. 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
[2024-10-23 14:55] VITALS: BP 139/90; PULSE 72; O2SAT 100; BMI 27.2
== END 2024-10-23 15:20 | disposition home or self-care (01) ==
LOC: HO.PMC 14:42
PROVIDERS: PCP Internal Medicine; Visit Provider Registered Nurse Emergency
DX: M96.1 Postlaminectomy syndrome, not elsewhere classified (principal); Z96.89 Presence of other specified functional implants; G89.4 Chronic pain syndrome; T85.192A Other mechanical complication of implanted electronic neurostimulator of spinal cord electrode (lead), initial encounter; M47.815 Spondylosis without myelopathy or radiculopathy, thoracolumbar region
CPT/HCPCS: 99213